=== PATIENT | male | born 1950 | race Caucasian/White ===

== ENCOUNTER → 2019-04-05 | Outpatient (CLI) | payer OTHER ==
[~2019-04-05] MED LIST: ASPI81CH43 GT; GABA300C10 OR; HYDR25TA4 OR; LISI-275 OR; METF-370 OR; PIOG30TA20 OR; PROZAC; ROSU40TA OR
[2019-04-05 08:42] LABS: Cholesterol 173 mg/dL (< 200); Triglycerides 172 mg/dL (< 150)
[2019-04-05 08:44] LABS: HDL Cholesterol 33 mg/dL (40-59); LDL Cholesterol 111 mg/dL (< 100)
== END | disposition home or self-care (01) ==
LOC: LAB 07:35
PROVIDERS: ATTEND Internal Medicine
DX: Z12.11 Encounter for screening for malignant neoplasm of colon (principal); E11.9 Type 2 diabetes mellitus without complications; I10 Essential (primary) hypertension; I25.10 Atherosclerotic heart disease of native coronary artery without angina pectoris; E78.5 Hyperlipidemia, unspecified; Z12.5 Encounter for screening for malignant neoplasm of prostate
CPT/HCPCS: 36415; 80061; 83036; 83880; 84153

== ENCOUNTER → 2019-05-09 | Outpatient (CLI) | payer MEDICAID, MEDICARE, OTHER | END | disposition home or self-care (01) | LOC: XYW 08:10 | PROVIDERS: ATTEND Internal Medicine | DX: I08.3 Combined rheumatic disorders of mitral, aortic and tricuspid valves (principal); I25.10 Atherosclerotic heart disease of native coronary artery without angina pectoris | CPT/HCPCS: 93306 ==

== ENCOUNTER → 2019-07-08 | Outpatient (CLI) | payer OTHER ==
[2019-07-08 08:41] LABS: Potassium 4.4 mmol/L (3.5-5.1)
[2019-07-08 08:46] LABS: Albumin 3.7 g/dL (3.4-5.0); BUN/Creatinine Ratio 16.9; Bilirubin, Total 0.5 mg/dL (0.2-1.0); Calcium 8.6 mg/dL (8.5-10.1); Total Protein 7.3 g/dL (6.4-8.2)
== END | disposition home or self-care (01) ==
LOC: LAB 07:06
PROVIDERS: ATTEND Internal Medicine
DX: E11.9 Type 2 diabetes mellitus without complications (principal); Z12.11 Encounter for screening for malignant neoplasm of colon; E78.5 Hyperlipidemia, unspecified; I10 Essential (primary) hypertension; Z79.4 Long term (current) use of insulin
CPT/HCPCS: 36415; 80053; 80061; 82550; 83036

== ENCOUNTER → 2019-09-09 | Outpatient (CLI) | payer MEDICAID, MEDICARE, OTHER ==
[~2019-09-09] MED LIST changes: +ASPI325T4 PO; +ATOR40TA52 PO; +FENO160T8 PO; +FLUO40CA75 PO; +GABA-339 PO; +INSUINJ2 SC; +METO25TA5 PO
== END | disposition home or self-care (01) ==
LOC: XY 08:45
PROVIDERS: ATTEND Podiatrist
DX: I65.23 Occlusion and stenosis of bilateral carotid arteries (principal); I73.89 Other specified peripheral vascular diseases
CPT/HCPCS: 93925

== ENCOUNTER → 2019-10-21 | Outpatient (CLI) | payer OTHER ==
[~2019-10-21] MED LIST changes: -ASPI325T4 PO; -ATOR40TA52 PO; -FENO160T8 PO; -FLUO40CA75 PO; -GABA-339 PO; -INSUINJ2 SC; -METO25TA5 PO
[2019-10-21 09:44] LABS: Basophils # (auto) 0.1 10 ^3/uL (0-0.2); Eosinophils # (auto) 0.7 10 ^3/uL (0-0.8); Eosinophils % (auto) 9.1 % (0.0-7.0); Hematocrit 39.1 % (41.0-53.0); Hemoglobin 13.2 g/dL (13.5-17.5); Lymphocytes # (auto) 1.8 10 ^3/uL (0.4-5.4); Mean Corpuscular Hemoglobin 30.9 pg (28.0-32.0); Mean Corpuscular Hgb Conc. 33.9 g/dL (32.0-36.0); Mean Corpuscular Volume 91.3 fL (80.0-100.0); Monocytes # (auto) 0.4 10 ^3/uL (0-1.3); Monocytes % (auto) 5.1 % (0.0-12.0); Neutrophils # (auto) 4.6 10 ^3/uL (1.6-8.6); Neutrophils % (auto) 60.8 % (37.0-80.0); Platelet Count (auto) 259 10^3/uL (140-450); Red Blood Cells 4.29 10^6/uL (4.5-5.90); Red Cell Distribution Width 12.8 % (11.8-14.3); White Blood Cell 7.5 10^3/uL (4.4-10.8)
[2019-10-21 10:30] LABS: Albumin 3.7 g/dL (3.4-5.0); Calcium 9.7 mg/dL (8.5-10.1); Potassium 4.4 mmol/L (3.5-5.1)
[2019-10-21 10:34] LABS: BUN/Creatinine Ratio 17.8; Bilirubin, Total 0.5 mg/dL (0.2-1.0); Total Protein 7.5 g/dL (6.4-8.2)
== END | disposition home or self-care (01) ==
LOC: LAB 08:45
PROVIDERS: ATTEND Internal Medicine
DX: E11.9 Type 2 diabetes mellitus without complications (principal)
CPT/HCPCS: 36415; 80053; 80061; 83036; 85025

== ENCOUNTER 2019-11-01 11:23 | Day surgery (SDC) | payer OTHER ==
[2019-10-28 11:45] LABS: Basophils # (auto) 0.1 10 ^3/uL (0-0.2); Eosinophils # (auto) 0.6 10 ^3/uL (0-0.8); Eosinophils % (auto) 7.5 % (0.0-7.0); Hematocrit 38.5 % (41.0-53.0); Hemoglobin 13.2 g/dL (13.5-17.5); Lymphocytes # (auto) 1.9 10 ^3/uL (0.4-5.4); Lymphocytes % (auto) 25.3 % (10.0-50.0); Mean Corpuscular Hemoglobin 30.9 pg (28.0-32.0); Mean Corpuscular Hgb Conc. 34.3 g/dL (32.0-36.0); Mean Corpuscular Volume 90.1 fL (80.0-100.0); Monocytes # (auto) 0.6 10 ^3/uL (0-1.3); Monocytes % (auto) 7.9 % (0.0-12.0); Neutrophils # (auto) 4.4 10 ^3/uL (1.6-8.6); Neutrophils % (auto) 58.3 % (37.0-80.0); Platelet Count (auto) 276 10^3/uL (140-450); Red Blood Cells 4.27 10^6/uL (4.5-5.90); Red Cell Distribution Width 12.9 % (11.8-14.3); White Blood Cell 7.6 10^3/uL (4.4-10.8)
[2019-10-28 12:06] LABS: INR 0.99 (0.9-1.15); Partial Thromboplastin Time 24.1 sec (23.0-31.2)
[~2019-11-01] VITALS: Ht 203.2 cm; Wt 124.7 kg
[~2019-11-01 11:23] MED LIST changes: +ASPI325T4 PO; -ASPI81CH43 GT; +ATOR40TA52 PO; +FENO160T8 PO; +FLUO40CA75 PO; +GABA-339 PO; -GABA300C10 OR; -HYDR25TA4 OR; +INSUINJ2 SC; -LISI-275 OR; +METO25TA5 PO; -PIOG30TA20 OR; -PROZAC; -ROSU40TA OR
[2019-11-01] MEDS ORDERED: SODIUM CHLORIDE LOCK 10 ML ONE (12:20)
[2019-11-01] MEDS ORDERED: diphenhdrAMINE HCL 50 MG/1 ML VL ONE (12:20)
[2019-11-01] MEDS: fentaNYL CITRATE 100 MCG/2 ML VL ONE ×3 (13:00→13:11)
[2019-11-01] MEDS: MIDAZOLAM HCL 5 MG/ML-1ML VIAL ONE ×3 (13:00→13:11)
[2019-11-01 14:04] VITALS: BP 134/67
== END 2019-11-01 14:05 | disposition home or self-care (01) ==
LOC: GI 11:23
PROVIDERS: ATTEND Internal Medicine Gastroenterology
DX: R19.4 Change in bowel habit (principal); D12.3 Benign neoplasm of transverse colon; D12.2 Benign neoplasm of ascending colon; D12.0 Benign neoplasm of cecum; G62.9 Polyneuropathy, unspecified; K63.89 Other specified diseases of intestine; Z86.19 Personal history of other infectious and parasitic diseases; Z79.82 Long term (current) use of aspirin; Z12.2 Encounter for screening for malignant neoplasm of respiratory organs; Z86.010 Personal history of colon polyps; Z79.899 Other long term (current) drug therapy; Z20.828 Contact with and (suspected) exposure to other viral communicable diseases
CPT/HCPCS: 36415; 45380; 45385; 82962; 85025; 85610; 85730; 88305; J2250; J3010; J7030; U0003

== ENCOUNTER → 2019-12-16 | Outpatient (CLI) | payer OTHER ==
[~2019-12-16] VITALS: Ht 203.2 cm; Wt 124.7 kg
[~2019-12-16] MED LIST changes: +ADENOSINE 105 MG in GIVE UN-DILUTED 0 ML IV ONE; +ADENOSINE 90 MG/30 ML INJ IV ONE
== END | disposition home or self-care (01) ==
LOC: Rad HDHVI 08:00
PROVIDERS: ATTEND Internal Medicine Cardiovascular Disease
DX: I11.0 Hypertensive heart disease with heart failure (principal); I50.43 Acute on chronic combined systolic (congestive) and diastolic (congestive) heart failure; E11.9 Type 2 diabetes mellitus without complications; R06.02 Shortness of breath; E78.5 Hyperlipidemia, unspecified; I25.10 Atherosclerotic heart disease of native coronary artery without angina pectoris; I25.5 Ischemic cardiomyopathy; I34.0 Nonrheumatic mitral (valve) insufficiency; Z82.49 Family history of ischemic heart disease and other diseases of the circulatory system; Z95.1 Presence of aortocoronary bypass graft
CPT/HCPCS: 78452; 93005; 96374; 96375; A9500; J0153

== ENCOUNTER → 2020-03-25 | Outpatient (CLI) | payer OTHER ==
[~2020-03-25] MED LIST changes: -ADENOSINE 105 MG in GIVE UN-DILUTED 0 ML IV ONE; -ADENOSINE 90 MG/30 ML INJ IV ONE; +FLUO40CA2 PO; -FLUO40CA75 PO; +INSREG3 SUBCUT
== END | disposition home or self-care (01) ==
LOC: XY 09:56
PROVIDERS: ATTEND Podiatrist
DX: I70.203 Unspecified atherosclerosis of native arteries of extremities, bilateral legs (principal)
CPT/HCPCS: 93925

== ENCOUNTER → 2020-07-21 | Outpatient (CLI) | payer OTHER ==
[~2020-07-21] MED LIST changes: -INSREG3 SUBCUT
== END | disposition home or self-care (01) ==
LOC: LAB 12:37
PROVIDERS: ATTEND Internal Medicine Pulmonary Disease
DX: Z01.812 Encounter for preprocedural laboratory examination (principal); Z20.822 Contact with and (suspected) exposure to COVID-19
CPT/HCPCS: 36415; 87426

== ENCOUNTER → 2020-07-22 | Outpatient (CLI) | payer OTHER ==
[~2020-07-22] MED LIST changes: +ALBUTEROL SULF 2.5 MG/0.5ML(0.5%) NEB SOLN ONE
== END | disposition home or self-care (01) ==
LOC: RT 08:46
PROVIDERS: ATTEND Internal Medicine
DX: I11.0 Hypertensive heart disease with heart failure (principal); I50.43 Acute on chronic combined systolic (congestive) and diastolic (congestive) heart failure
CPT/HCPCS: 94060; 94727; 94729

== ENCOUNTER → 2020-08-11 | Outpatient (CLI) | payer OTHER ==
[~2020-08-11] VITALS: Ht 203.2 cm; Wt 125.6 kg
[~2020-08-11] MED LIST changes: +ADENOSINE 106 MG in GIVE UN-DILUTED 0 ML IV STA; -ALBUTEROL SULF 2.5 MG/0.5ML(0.5%) NEB SOLN ONE
[2020-08-11 10:44] VITALS: BP 133/85
== END | disposition home or self-care (01) ==
LOC: XY 09:22
PROVIDERS: ATTEND Internal Medicine
DX: I25.10 Atherosclerotic heart disease of native coronary artery without angina pectoris (principal)
CPT/HCPCS: 78452; 93017; A9500; J0153

== ENCOUNTER → 2020-09-04 | Outpatient (CLI) | payer OTHER ==
[~2020-09-04] MED LIST changes: -ADENOSINE 106 MG in GIVE UN-DILUTED 0 ML IV STA
[2020-09-04 07:50] LABS: Basophils # (auto) 0.1 10 ^3/uL (0-0.2); Basophils % (auto) 1.2 % (0.0-2.0); Eosinophils # (auto) 0.7 10 ^3/uL (0-0.8); Eosinophils % (auto) 9.3 % (0.0-7.0); Hematocrit 39.2 % (41.0-53.0); Hemoglobin 13.7 g/dL (13.5-17.5); Lymphocytes % (auto) 25.4 % (10.0-50.0); Mean Corpuscular Hemoglobin 31.1 pg (28.0-32.0); Monocytes # (auto) 0.5 10 ^3/uL (0-1.3); Monocytes % (auto) 6.2 % (0.0-12.0); Neutrophils # (auto) 4.5 10 ^3/uL (1.6-8.6); Neutrophils % (auto) 57.9 % (37.0-80.0); Platelet Count (auto) 265 10^3/uL (140-450); Red Cell Distribution Width 13.2 % (11.8-14.3); White Blood Cell 7.7 10^3/uL (4.4-10.8)
[2020-09-04 08:34] LABS: Calcium 9.6 mg/dL (8.5-10.1); Potassium 4.8 mmol/L (3.5-5.1)
[2020-09-04 08:39] LABS: BUN/Creatinine Ratio 18.1; Bilirubin, Total 0.5 mg/dL (0.2-1.0); Total Protein 7.8 g/dL (6.4-8.2)
== END | disposition home or self-care (01) ==
LOC: LAB 07:27
PROVIDERS: ATTEND Internal Medicine
DX: Z12.11 Encounter for screening for malignant neoplasm of colon (principal); E11.22 Type 2 diabetes mellitus with diabetic chronic kidney disease; N18.30 Chronic kidney disease, stage 3 unspecified
CPT/HCPCS: 36415; 80053; 80061; 83036; 84153; 85025; 85049

== ENCOUNTER → 2020-09-25 | Outpatient (CLI) | payer OTHER ==
[~2020-09-25] MED LIST changes: +INSREG3 SUBCUT
[2020-09-25 10:33] LABS: Basophils # (auto) 0.1 10 ^3/uL (0-0.2); Basophils % (auto) 1.2 % (0.0-2.0); Eosinophils # (auto) 0.6 10 ^3/uL (0-0.8); Hematocrit 38.8 % (41.0-53.0); Hemoglobin 13.6 g/dL (13.5-17.5); Lymphocytes # (auto) 1.9 10 ^3/uL (0.4-5.4); Lymphocytes % (auto) 23.3 % (10.0-50.0); Mean Corpuscular Hemoglobin 31.1 pg (28.0-32.0); Mean Corpuscular Volume 88.7 fL (80.0-100.0); Monocytes # (auto) 0.5 10 ^3/uL (0-1.3); Neutrophils # (auto) 4.9 10 ^3/uL (1.6-8.6); Neutrophils % (auto) 61.5 % (37.0-80.0); Red Blood Cells 4.38 10^6/uL (4.5-5.90); Red Cell Distribution Width 13.5 % (11.8-14.3); White Blood Cell 7.9 10^3/uL (4.4-10.8)
[2020-09-25 11:01] LABS: INR 1.02 (0.9-1.15); Partial Thromboplastin Time 25.3 sec (23.0-31.2)
[2020-09-25 11:35] LABS: Calcium 8.8 mg/dL (8.5-10.1); Potassium 4.7 mmol/L (3.5-5.1)
[2020-09-25 11:41] LABS: Albumin 3.9 g/dL (3.4-5.0); BUN/Creatinine Ratio 17.1; Bilirubin, Total 0.4 mg/dL (0.2-1.0); Total Protein 8.1 g/dL (6.4-8.2)
== END | disposition home or self-care (01) ==
LOC: LAB 10:18
PROVIDERS: ATTEND Internal Medicine
DX: Z01.812 Encounter for preprocedural laboratory examination (principal)
CPT/HCPCS: 36415; 80053; 85025; 85610; 85730

== ENCOUNTER 2020-09-28 06:50 | Day surgery (SDC) | payer OTHER ==
[~2020-09-28] VITALS: Ht 203.2 cm; Wt 127.0 kg
[2020-09-28] MEDS ORDERED: IODIXANOL 320MG/ML 100ML BTL IV ONE ×3 (07:22→09:56)
[2020-09-28] MEDS ORDERED: LIDOCAINE 2%HCL (LOCAL ANESTH.) INJ 20ML MDV ONE (07:22)
[2020-09-28] MEDS ORDERED: ANGIOMAX 250 MG VIAL IV ONE ×2 (08:55→10:00)
[2020-09-28] MEDS ORDERED: fentaNYL CITRATE 100 MCG/2 ML VL ONE ×2 (08:56→10:10)
[2020-09-28] MEDS ORDERED: SODIUM CHL 0.9% 50 ML ONE ×2 (08:56→10:00)
[2020-09-28] MEDS ORDERED: VERAPAMIL 2.5MG/ML INJ 2ML VIAL IV ONE (08:56)
[2020-09-28] MEDS ORDERED: MIDAZOLAM HCL 2MG/2ML 2ml VIAL (1mg/ml) ONE ×2 (08:56→10:10)
[2020-09-28] MEDS ORDERED: HEPARIN SODIUM (PORCINE) 5000 UNITS/ML 1ML VIAL ONE (08:57)
[2020-09-28] MEDS ORDERED: LABETALOL HCL 5 MG/ML ML 20ML VIAL IV ONE (10:22)
[2020-09-28] MEDS ORDERED: ASPirin 81 mg TAB ONE (10:27)
[2020-09-28] MEDS ORDERED: TICAGRELOR 90 MG TAB ONE (10:27)
[2020-09-28] MEDS ORDERED: hydrALAZINE HCL 20 MG/ML VL ONE (10:40)
[2020-09-28] MEDS ORDERED: ONDANSETRON HCL 4 MG/2 ML VIAL IV PRN (11:45)
[2020-09-28] MEDS ORDERED: ACETAMINOPHEN 500 MG TAB PO PRN (11:45)
[2020-09-28] MEDS ORDERED: TICAGRELOR 90 MG TAB PO SCH (22:00)
== END 2020-09-28 13:40 | disposition home or self-care (01) ==
LOC: CATH 06:50
PROVIDERS: ATTEND Internal Medicine
DX: I25.10 Atherosclerotic heart disease of native coronary artery without angina pectoris (principal); I25.82 Chronic total occlusion of coronary artery; I10 Essential (primary) hypertension; E11.9 Type 2 diabetes mellitus without complications; E78.5 Hyperlipidemia, unspecified; Z95.1 Presence of aortocoronary bypass graft; Z87.891 Personal history of nicotine dependence; Z98.890 Other specified postprocedural states; Z79.899 Other long term (current) drug therapy; Z79.82 Long term (current) use of aspirin
CPT/HCPCS: 93461; C1726; C1769; C1874; C1887; C1894; C9604; J0583; J1644; J2250; J3010; J7030; Q9967; U0003; 99152; 99153

== ENCOUNTER → 2020-11-19 | Outpatient (CLI) | payer OTHER | END | disposition home or self-care (01) | LOC: LAB 14:00 | PROVIDERS: ATTEND Internal Medicine | DX: I10 Essential (primary) hypertension (principal) | CPT/HCPCS: 36415; 84443 ==

== ENCOUNTER 2020-12-17 13:18 | Emergency (ER) | payer OTHER ==
[~2020-12-17] VITALS: Ht 203.2 cm; Wt 124.7 kg
[2020-12-17 14:10] LABS: Basophils # (auto) 0.1 10 ^3/uL (0-0.2); Eosinophils # (auto) 0.4 10 ^3/uL (0-0.8); Eosinophils % (auto) 6.2 % (0.0-7.0); Hematocrit 39.5 % (41.0-53.0); Hemoglobin 13.8 g/dL (13.5-17.5); Lymphocytes # (auto) 1.6 10 ^3/uL (0.4-5.4); Lymphocytes % (auto) 23.3 % (10.0-50.0); Mean Corpuscular Hgb Conc. 34.8 g/dL (32.0-36.0); Monocytes # (auto) 0.5 10 ^3/uL (0-1.3); Monocytes % (auto) 7.2 % (0.0-12.0); Neutrophils # (auto) 4.4 10 ^3/uL (1.6-8.6); Neutrophils % (auto) 62.3 % (37.0-80.0); Nucleated Red Blood Cells % 0.1 %; Red Blood Cells 4.44 10^6/uL (4.5-5.90); Red Cell Distribution Width 13.1 % (11.8-14.3)
[2020-12-17 14:25] LABS: INR 0.97 (0.9-1.15); Partial Thromboplastin Time 24.5 sec (23.6-33.0)
[2020-12-17 14:36] LABS: Anion Gap 7 (5-15); Blood Urea Nitrogen 30 mg/dL (7-18); Calcium 9.5 mg/dL (8.5-10.1); Carbon Dioxide 24 mmol/L (21-32); Chloride 104 mmol/L (98-107); Glucose 185 mg/dL (74-106); Magnesium 2.4 mg/dL (1.6-2.6); Potassium 4.4 mmol/L (3.5-5.1); Sodium 135 mmol/L (136-145)
[2020-12-17 14:46] LABS: Alanine Aminotransferase 30 U/L (16-61); Alkaline Phosphatase 75 U/L (45-117); Aspartate Aminotransferase 16 U/L (15-37); BUN/Creatinine Ratio 17.6; Bilirubin, Total 0.3 mg/dL (0.2-1.0); GFR African American 52 mL/min; GFR Non-African American 43 mL/min; Total Protein 8.2 g/dL (6.4-8.2)
[2020-12-17 17:25] VITALS: BP 132/68
== END 2020-12-17 17:27 | disposition home or self-care (01) ==
LOC: ER 13:18
DX: R07.89 Other chest pain (principal); R91.1 Solitary pulmonary nodule; I10 Essential (primary) hypertension; E11.9 Type 2 diabetes mellitus without complications; I25.10 Atherosclerotic heart disease of native coronary artery without angina pectoris; Z95.1 Presence of aortocoronary bypass graft; Z79.4 Long term (current) use of insulin; Z79.82 Long term (current) use of aspirin; Z79.899 Other long term (current) drug therapy
CPT/HCPCS: 36415; 71045; 80053; 83735; 83880; 84484; 85025; 85379; 85610; 85730; 93005

== ENCOUNTER → 2021-01-18 | Outpatient (CLI) | payer OTHER ==
[2021-01-18 15:47] LABS: Basophils # (auto) 0.1 10 ^3/uL (0-0.2); Basophils % (auto) 0.9 % (0.0-2.0); Eosinophils # (auto) 0.5 10 ^3/uL (0-0.8); Eosinophils % (auto) 6.3 % (0.0-7.0); Hemoglobin 13.8 g/dL (13.5-17.5); Lymphocytes # (auto) 1.8 10 ^3/uL (0.4-5.4); Lymphocytes % (auto) 23.7 % (10.0-50.0); Mean Corpuscular Hgb Conc. 33.7 g/dL (32.0-36.0); Mean Corpuscular Volume 88.8 fL (80.0-100.0); Monocytes # (auto) 0.5 10 ^3/uL (0-1.3); Monocytes % (auto) 6.4 % (0.0-12.0); Neutrophils # (auto) 4.8 10 ^3/uL (1.6-8.6); Neutrophils % (auto) 62.7 % (37.0-80.0); Red Blood Cells 4.61 10^6/uL (4.5-5.90); White Blood Cell 7.6 10^3/uL (4.4-10.8)
[2021-01-18 16:37] LABS: INR 0.99 (0.9-1.15); Partial Thromboplastin Time 24.3 sec (23.6-33.0)
== END | disposition home or self-care (01) ==
LOC: LAB 14:55
PROVIDERS: ATTEND Internal Medicine
DX: R91.8 Other nonspecific abnormal finding of lung field (principal)
CPT/HCPCS: 36415; 85025; 85610; 85730

== ENCOUNTER → 2021-01-20 | Outpatient (CLI) | payer MEDICAID, MEDICARE, OTHER ==
[~2021-01-20] MED LIST changes: +LIDOCAINE 2%HCL (LOCAL ANESTH.) INJ 10ml MDV IJ ONE; +LIDOCAINE 2%HCL (LOCAL ANESTH.) INJ 20ML MDV ONE; +MIDAZOLAM HCL 2MG/2ML 2ml VIAL (1mg/ml) IV ONE; +MIDAZOLAM HCL 2MG/2ML 2ml VIAL (1mg/ml) ONE; +fentaNYL CITRATE 100 MCG/2 ML VL IV ONE; +fentaNYL CITRATE 100 MCG/2 ML VL ONE
[2021-01-20 09:55] VITALS: BP 148/73
== END | disposition home or self-care (01) ==
LOC: CT 08:41
PROVIDERS: ATTEND Nurse Practitioner Family
DX: R91.8 Other nonspecific abnormal finding of lung field (principal); J85.0 Gangrene and necrosis of lung; I25.810 Atherosclerosis of coronary artery bypass graft(s) without angina pectoris; Z95.1 Presence of aortocoronary bypass graft
CPT/HCPCS: 32408; 71045; 71250; 77012; 88305; 88342; J2001; J2250; J3010; 10022

== ENCOUNTER → 2021-02-11 | Outpatient (CLI) | payer OTHER ==
[~2021-02-11] MED LIST changes: -LIDOCAINE 2%HCL (LOCAL ANESTH.) INJ 10ml MDV IJ ONE; -LIDOCAINE 2%HCL (LOCAL ANESTH.) INJ 20ML MDV ONE; -MIDAZOLAM HCL 2MG/2ML 2ml VIAL (1mg/ml) IV ONE; -MIDAZOLAM HCL 2MG/2ML 2ml VIAL (1mg/ml) ONE; -fentaNYL CITRATE 100 MCG/2 ML VL IV ONE; -fentaNYL CITRATE 100 MCG/2 ML VL ONE
[2021-02-11 10:13] LABS: BUN/Creatinine Ratio 16.9; Calcium 9.1 mg/dL (8.5-10.1); Potassium 4.6 mmol/L (3.5-5.1)
== END | disposition home or self-care (01) ==
LOC: LAB 09:25
PROVIDERS: ATTEND Internal Medicine
DX: Z01.812 Encounter for preprocedural laboratory examination (principal); Z20.822 Contact with and (suspected) exposure to COVID-19
CPT/HCPCS: 36415; 80048; 82043; 82306; 84443; 87426

== ENCOUNTER → 2021-02-12 | Outpatient (CLI) | payer OTHER ==
[~2021-02-12] MED LIST changes: +ALBUTEROL SULF 2.5 MG/0.5ML(0.5%) NEB SOLN ONE
== END | disposition home or self-care (01) ==
LOC: RT 09:00
PROVIDERS: ATTEND Internal Medicine Pulmonary Disease
DX: J44.9 Chronic obstructive pulmonary disease, unspecified (principal)
CPT/HCPCS: 94060; 94727; 94729

== ENCOUNTER → 2021-02-22 | Outpatient (CLI) | payer OTHER ==
[~2021-02-22] MED LIST changes: -ALBUTEROL SULF 2.5 MG/0.5ML(0.5%) NEB SOLN ONE
[2021-02-22 09:51] LABS: Basophils # (auto) 0.1 10 ^3/uL (0-0.2); Basophils % (auto) 1.2 % (0.0-2.0); Eosinophils # (auto) 0.6 10 ^3/uL (0-0.8); Eosinophils % (auto) 8.8 % (0.0-7.0); Hematocrit 39.7 % (41.0-53.0); Hemoglobin 13.2 g/dL (13.5-17.5); Lymphocytes # (auto) 1.4 10 ^3/uL (0.4-5.4); Lymphocytes % (auto) 21.5 % (10.0-50.0); Mean Corpuscular Hemoglobin 29.3 pg (28.0-32.0); Mean Corpuscular Hgb Conc. 33.2 g/dL (32.0-36.0); Mean Corpuscular Volume 88.1 fL (80.0-100.0); Monocytes # (auto) 0.4 10 ^3/uL (0-1.3); Monocytes % (auto) 6.2 % (0.0-12.0); Neutrophils # (auto) 4.1 10 ^3/uL (1.6-8.6); Neutrophils % (auto) 62.3 % (37.0-80.0); Red Cell Distribution Width 12.7 % (11.8-14.3); White Blood Cell 6.5 10^3/uL (4.4-10.8)
[2021-02-22 09:59] LABS: INR 1.02 (0.9-1.15); Partial Thromboplastin Time 24.9 sec (23.6-33.0)
== END | disposition home or self-care (01) ==
LOC: LAB 09:14
PROVIDERS: ATTEND Internal Medicine
DX: Z01.812 Encounter for preprocedural laboratory examination (principal)
CPT/HCPCS: 36415; 85025; 85610; 85730

== ENCOUNTER → 2021-02-23 | Outpatient (CLI) | payer OTHER ==
[~2021-02-23] MED LIST changes: +CLOP75TA70 PO; +LEVO75TA6 PO; +LIDOCAINE 2%HCL (LOCAL ANESTH.) INJ 20ML MDV ONE; +MIDAZOLAM HCL 2MG/2ML 2ml VIAL (1mg/ml) IV ONE; +MIDAZOLAM HCL 2MG/2ML 2ml VIAL (1mg/ml) ONE; +fentaNYL CITRATE 100 MCG/2 ML VL IV ONE; +fentaNYL CITRATE 100 MCG/2 ML VL ONE
[2021-02-23 10:23] VITALS: BP 131/70
== END | disposition home or self-care (01) ==
LOC: CT 09:15
PROVIDERS: ATTEND Internal Medicine
DX: D38.1 Neoplasm of uncertain behavior of trachea, bronchus and lung (principal); Z95.5 Presence of coronary angioplasty implant and graft; Z87.891 Personal history of nicotine dependence
CPT/HCPCS: 32408; 71045; 71250; 77012; 88305; 88342; J2250; J3010; 10005

== ENCOUNTER → 2021-03-03 | Outpatient (CLI) | payer OTHER ==
[~2021-03-03] MED LIST changes: -CLOP75TA70 PO; -LEVO75TA6 PO; -LIDOCAINE 2%HCL (LOCAL ANESTH.) INJ 20ML MDV ONE; -MIDAZOLAM HCL 2MG/2ML 2ml VIAL (1mg/ml) IV ONE; -MIDAZOLAM HCL 2MG/2ML 2ml VIAL (1mg/ml) ONE; -fentaNYL CITRATE 100 MCG/2 ML VL IV ONE; -fentaNYL CITRATE 100 MCG/2 ML VL ONE
[2021-03-03 16:59] LABS: BUN/Creatinine Ratio 16.7; Calcium 9.6 mg/dL (8.5-10.1); Potassium 5.1 mmol/L (3.5-5.1)
== END | disposition home or self-care (01) ==
LOC: LAB 15:43
PROVIDERS: ATTEND Internal Medicine
DX: E11.9 Type 2 diabetes mellitus without complications (principal)
CPT/HCPCS: 36415; 80048; 84443

== ENCOUNTER → 2021-04-07 | Day surgery (SDC) | payer OTHER ==
[2021-04-06 09:35] LABS: Basophils # (auto) 0.1 10 ^3/uL (0-0.2); Basophils % (auto) 0.8 % (0.0-2.0); Eosinophils # (auto) 0.4 10 ^3/uL (0-0.8); Eosinophils % (auto) 5.3 % (0.0-7.0); Hematocrit 38.2 % (41.0-53.0); Lymphocytes # (auto) 1.3 10 ^3/uL (0.4-5.4); Mean Corpuscular Hemoglobin 29.9 pg (28.0-32.0); Monocytes # (auto) 0.5 10 ^3/uL (0-1.3); Monocytes % (auto) 7.2 % (0.0-12.0); Neutrophils # (auto) 4.5 10 ^3/uL (1.6-8.6); Neutrophils % (auto) 66.7 % (37.0-80.0); Nucleated Red Blood Cells % 0.1 %; Red Blood Cells 4.34 10^6/uL (4.5-5.90); Red Cell Distribution Width 13.4 % (11.8-14.3); White Blood Cell 6.7 10^3/uL (4.4-10.8)
[2021-04-06 09:54] LABS: Partial Thromboplastin Time 26.2 sec (23.6-33.0)
[2021-04-06 09:58] LABS: Urine Bacteria NONE SEEN /hpf (None Seen); Urine Blood Negative /uL (Negative); Urine Specific Gravity 1.015 (1.001-1.035); Urine WBC 1 /hpf (0 - 3)
[2021-04-06 11:13] LABS: Calcium 9.7 mg/dL (8.5-10.1); Potassium 5.3 mmol/L (3.5-5.1)
[2021-04-06 12:06] LABS: BUN/Creatinine Ratio 19.9; Bilirubin, Total 0.4 mg/dL (0.2-1.0)
[~2021-04-07] VITALS: Ht 203.2 cm; Wt 127.0 kg
[~2021-04-07] MED LIST changes: +CLOP75TA70 PO; +HEPARIN 1,000 UNITS/ml 1ML VIAL ONE; +HEPARIN SODIUM (PORCINE) 5000 UNITS/ML 1ML VIAL ONE; +LEVO75TA6 PO; +LIDOCAINE 1% HCL (LOCAL ANESTH.) INJ 20ML MDV ONE; +LIDOCAINE 2% (LOCAL ANESTH.) PF 5ml SDV ONE; +MIDAZOLAM HCL 2MG/2ML 2ml VIAL (1mg/ml) ONE; +ONDANSETRON HCL 4 MG/2 ML VIAL IV PRN; +ONDANSETRON HCL 4 MG/2 ML VIAL ONE; +PROPOFOL 10 MG/ML 20 ML IV ONE; +ceFAZolin 1GM VL ONE; +ceFAZolin 1GM/50ML 100 ML IV ONE; +ePHEDrine SULFATE 50 MG/ML AMP ONE; +fentaNYL CITRATE 5 ML ONE
[2021-04-07 09:00] VITALS: BP 134/75
== END | disposition home or self-care (01) ==
LOC: SUR 06:18
PROVIDERS: ATTEND Surgery
DX: C34.92 Malignant neoplasm of unspecified part of left bronchus or lung (principal); E11.40 Type 2 diabetes mellitus with diabetic neuropathy, unspecified; G89.29 Other chronic pain; Z95.5 Presence of coronary angioplasty implant and graft; Z90.49 Acquired absence of other specified parts of digestive tract; Z90.89 Acquired absence of other organs; Z86.73 Personal history of transient ischemic attack (TIA), and cerebral infarction without residual deficits; Z20.822 Contact with and (suspected) exposure to COVID-19
CPT/HCPCS: 36415; 36561; 71045; 80053; 81001; 82962; 85025; 85610; 85730; C1788; J0690; J1644; J2001; J2250; J2405; J2704; J3010; U0003

== ENCOUNTER → 2021-04-12 | Outpatient (CLI) | payer OTHER ==
[~2021-04-12] MED LIST changes: -HEPARIN 1,000 UNITS/ml 1ML VIAL ONE; -HEPARIN SODIUM (PORCINE) 5000 UNITS/ML 1ML VIAL ONE; -LIDOCAINE 1% HCL (LOCAL ANESTH.) INJ 20ML MDV ONE; -LIDOCAINE 2% (LOCAL ANESTH.) PF 5ml SDV ONE; -MIDAZOLAM HCL 2MG/2ML 2ml VIAL (1mg/ml) ONE; -ONDANSETRON HCL 4 MG/2 ML VIAL IV PRN; -ONDANSETRON HCL 4 MG/2 ML VIAL ONE; -PROPOFOL 10 MG/ML 20 ML IV ONE; -ceFAZolin 1GM VL ONE; -ceFAZolin 1GM/50ML 100 ML IV ONE; -ePHEDrine SULFATE 50 MG/ML AMP ONE; -fentaNYL CITRATE 5 ML ONE
[2021-04-12 11:22] LABS: Basophils # (auto) 0.1 10 ^3/uL (0-0.2); Basophils % (auto) 0.9 % (0.0-2.0); Eosinophils # (auto) 0.5 10 ^3/uL (0-0.8); Eosinophils % (auto) 6.8 % (0.0-7.0); Hematocrit 37.5 % (41.0-53.0); Hemoglobin 12.6 g/dL (13.5-17.5); Lymphocytes # (auto) 1.3 10 ^3/uL (0.4-5.4); Lymphocytes % (auto) 19.7 % (10.0-50.0); Mean Corpuscular Hemoglobin 29.6 pg (28.0-32.0); Mean Corpuscular Hgb Conc. 33.6 g/dL (32.0-36.0); Mean Corpuscular Volume 88.1 fL (80.0-100.0); Monocytes # (auto) 0.5 10 ^3/uL (0-1.3); Monocytes % (auto) 6.8 % (0.0-12.0); Neutrophils # (auto) 4.4 10 ^3/uL (1.6-8.6); Neutrophils % (auto) 65.8 % (37.0-80.0); Red Blood Cells 4.26 10^6/uL (4.5-5.90); Red Cell Distribution Width 13.3 % (11.8-14.3); White Blood Cell 6.8 10^3/uL (4.4-10.8)
[2021-04-12 11:34] LABS: INR 1.03 (0.9-1.15)
[2021-04-12 11:46] LABS: Albumin 3.8 g/dL (3.4-5.0); BUN/Creatinine Ratio 20.7; Bilirubin, Total 0.4 mg/dL (0.2-1.0); Calcium 9.6 mg/dL (8.5-10.1); Total Protein 7.7 g/dL (6.4-8.2)
== END | disposition home or self-care (01) ==
LOC: LAB 10:41
PROVIDERS: ATTEND Internal Medicine
DX: C34.90 Malignant neoplasm of unspecified part of unspecified bronchus or lung (principal)
CPT/HCPCS: 36415; 80053; 83615; 85025; 85610

== ENCOUNTER → 2021-04-19 | Outpatient (CLI) | payer OTHER ==
[2021-04-19 13:51] LABS: Basophils # (auto) 0.1 10 ^3/uL (0-0.2); Eosinophils # (auto) 0.2 10 ^3/uL (0-0.8); Eosinophils % (auto) 3.9 % (0.0-7.0); Hematocrit 38.2 % (41.0-53.0); Hemoglobin 12.9 g/dL (13.5-17.5); Lymphocytes # (auto) 1.1 10 ^3/uL (0.4-5.4); Lymphocytes % (auto) 17.6 % (10.0-50.0); Mean Corpuscular Hgb Conc. 33.8 g/dL (32.0-36.0); Monocytes # (auto) 0.2 10 ^3/uL (0-1.3); Monocytes % (auto) 3.7 % (0.0-12.0); Neutrophils # (auto) 4.7 10 ^3/uL (1.6-8.6); Neutrophils % (auto) 73.8 % (37.0-80.0); Red Blood Cells 4.29 10^6/uL (4.5-5.90); Red Cell Distribution Width 13.6 % (11.8-14.3); White Blood Cell 6.4 10^3/uL (4.4-10.8)
[2021-04-19 14:23] LABS: Potassium 5.4 mmol/L (3.5-5.1)
[2021-04-19 14:38] LABS: Albumin 3.9 g/dL (3.4-5.0); BUN/Creatinine Ratio 21.6; Bilirubin, Total 0.4 mg/dL (0.2-1.0); Calcium 9.5 mg/dL (8.5-10.1)
== END | disposition home or self-care (01) ==
LOC: LAB 09:47
PROVIDERS: ATTEND Internal Medicine
DX: C34.90 Malignant neoplasm of unspecified part of unspecified bronchus or lung (principal); Z88.8 Allergy status to other drugs, medicaments and biological substances
CPT/HCPCS: 36415; 80053; 83615; 85025

== ENCOUNTER → 2021-04-26 | Outpatient (CLI) | payer OTHER ==
[2021-04-26 12:55] LABS: Basophils # (auto) 0 10 ^3/uL (0-0.2); Basophils % (auto) 0.7 % (0.0-2.0); Eosinophils # (auto) 0.1 10 ^3/uL (0-0.8); Eosinophils % (auto) 2.1 % (0.0-7.0); Hematocrit 36.7 % (41.0-53.0); Hemoglobin 12.3 g/dL (13.5-17.5); Lymphocytes # (auto) 0.6 10 ^3/uL (0.4-5.4); Lymphocytes % (auto) 11.2 % (10.0-50.0); Mean Corpuscular Hemoglobin 29.5 pg (28.0-32.0); Mean Corpuscular Hgb Conc. 33.4 g/dL (32.0-36.0); Mean Corpuscular Volume 88.3 fL (80.0-100.0); Monocytes # (auto) 0.2 10 ^3/uL (0-1.3); Monocytes % (auto) 4.4 % (0.0-12.0); Neutrophils # (auto) 4.3 10 ^3/uL (1.6-8.6); Neutrophils % (auto) 81.6 % (37.0-80.0); Nucleated Red Blood Cells % 0.2 %; Red Blood Cells 4.16 10^6/uL (4.5-5.90); Red Cell Distribution Width 13.3 % (11.8-14.3); White Blood Cell 5.2 10^3/uL (4.4-10.8)
[2021-04-26 13:40] LABS: Albumin 3.5 g/dL (3.4-5.0); BUN/Creatinine Ratio 23.7; Calcium 9.4 mg/dL (8.5-10.1)
[2021-04-26 13:42] LABS: Bilirubin, Total 0.4 mg/dL (0.2-1.0); Total Protein 7.7 g/dL (6.4-8.2)
== END | disposition home or self-care (01) ==
LOC: LAB 09:52
PROVIDERS: ATTEND Internal Medicine
DX: C34.90 Malignant neoplasm of unspecified part of unspecified bronchus or lung (principal)
CPT/HCPCS: 36415; 80053; 83615; 85025

== ENCOUNTER → 2021-05-03 | Outpatient (CLI) | payer OTHER ==
[2021-05-03 11:24] LABS: Albumin 3.7 g/dL (3.4-5.0); BUN/Creatinine Ratio 19.8; Bilirubin, Total 0.4 mg/dL (0.2-1.0); Calcium 9.7 mg/dL (8.5-10.1); Total Protein 7.9 g/dL (6.4-8.2)
[2021-05-03 11:26] LABS: Thyroid Stimulating Hormone 1.66 uIU/mL (0.358-3.74)
[2021-05-03 11:35] LABS: Basophils # (auto) 0 10 ^3/uL (0-0.2); Basophils % (auto) 0.8 % (0.0-2.0); Eosinophils # (auto) 0.1 10 ^3/uL (0-0.8); Eosinophils % (auto) 1.1 % (0.0-7.0); Hematocrit 36.5 % (41.0-53.0); Hemoglobin 12.5 g/dL (13.5-17.5); Lymphocytes # (auto) 0.7 10 ^3/uL (0.4-5.4); Lymphocytes % (auto) 14.4 % (10.0-50.0); Mean Corpuscular Hemoglobin 29.9 pg (28.0-32.0); Mean Corpuscular Hgb Conc. 34.1 g/dL (32.0-36.0); Mean Corpuscular Volume 87.5 fL (80.0-100.0); Monocytes # (auto) 0.3 10 ^3/uL (0-1.3); Monocytes % (auto) 5.8 % (0.0-12.0); Neutrophils % (auto) 77.9 % (37.0-80.0); Nucleated Red Blood Cells % 0.1 %; Red Blood Cells 4.17 10^6/uL (4.5-5.90); Red Cell Distribution Width 13.4 % (11.8-14.3); White Blood Cell 5.1 10^3/uL (4.4-10.8)
== END | disposition home or self-care (01) ==
LOC: LAB 10:02
PROVIDERS: ATTEND Internal Medicine
DX: E11.9 Type 2 diabetes mellitus without complications (principal); J44.9 Chronic obstructive pulmonary disease, unspecified; R91.8 Other nonspecific abnormal finding of lung field
CPT/HCPCS: 36415; 80053; 83615; 84443; 85025

== ENCOUNTER → 2021-05-10 | Outpatient (CLI) | payer OTHER ==
[2021-05-10 10:38] LABS: Basophils # (auto) 0 10 ^3/uL (0-0.2); Basophils % (auto) 0.6 % (0.0-2.0); Eosinophils # (auto) 0 10 ^3/uL (0-0.8); Eosinophils % (auto) 0.8 % (0.0-7.0); Hematocrit 35.8 % (41.0-53.0); Hemoglobin 12.1 g/dL (13.5-17.5); Lymphocytes # (auto) 0.4 10 ^3/uL (0.4-5.4); Lymphocytes % (auto) 8.2 % (10.0-50.0); Mean Corpuscular Hemoglobin 30.3 pg (28.0-32.0); Mean Corpuscular Volume 89.1 fL (80.0-100.0); Monocytes # (auto) 0.4 10 ^3/uL (0-1.3); Neutrophils # (auto) 4.5 10 ^3/uL (1.6-8.6); Neutrophils % (auto) 83.4 % (37.0-80.0); Nucleated Red Blood Cells % 0.1 %; Red Blood Cells 4.02 10^6/uL (4.5-5.90); Red Cell Distribution Width 13.9 % (11.8-14.3); White Blood Cell 5.4 10^3/uL (4.4-10.8)
[2021-05-10 12:58] LABS: Potassium 4.8 mmol/L (3.5-5.1)
[2021-05-10 13:41] LABS: Albumin 3.8 g/dL (3.4-5.0); BUN/Creatinine Ratio 15.5; Bilirubin, Total 0.4 mg/dL (0.2-1.0); Calcium 9.3 mg/dL (8.5-10.1)
== END | disposition home or self-care (01) ==
LOC: LAB 09:34
PROVIDERS: ATTEND Internal Medicine
DX: C34.90 Malignant neoplasm of unspecified part of unspecified bronchus or lung (principal)
CPT/HCPCS: 36415; 80053; 83615; 85025

== ENCOUNTER → 2021-05-13 | Outpatient (CLI) | payer OTHER ==
[~2021-05-13] MED LIST changes: +IOHEXOL 300 MG/ML 100ML BOTTLE IJ ONE
== END | disposition home or self-care (01) ==
LOC: XYW 10:21
PROVIDERS: ATTEND Internal Medicine
DX: T82.49XA Other complication of vascular dialysis catheter, initial encounter (principal); C34.92 Malignant neoplasm of unspecified part of left bronchus or lung; Z87.891 Personal history of nicotine dependence; Z95.5 Presence of coronary angioplasty implant and graft; Y82.8 Other medical devices associated with adverse incidents; Y92.89 Other specified places as the place of occurrence of the external cause; Y84.1 Kidney dialysis as the cause of abnormal reaction of the patient, or of later complication, without mention of misadventure at the time of the procedure
CPT/HCPCS: 36561; 71045; 76000; Q9967

== ENCOUNTER → 2021-05-17 | Outpatient (CLI) | payer OTHER ==
[~2021-05-17] MED LIST changes: -IOHEXOL 300 MG/ML 100ML BOTTLE IJ ONE
[2021-05-17 10:36] LABS: Basophils # (auto) 0.1 10 ^3/uL (0-0.2); Basophils % (auto) 1.9 % (0.0-2.0); Eosinophils # (auto) 0 10 ^3/uL (0-0.8); Eosinophils % (auto) 0.8 % (0.0-7.0); Hematocrit 33.3 % (41.0-53.0); Hemoglobin 11.6 g/dL (13.5-17.5); Lymphocytes # (auto) 0.4 10 ^3/uL (0.4-5.4); Lymphocytes % (auto) 8.1 % (10.0-50.0); Mean Corpuscular Hemoglobin 30.6 pg (28.0-32.0); Mean Corpuscular Hgb Conc. 34.7 g/dL (32.0-36.0); Monocytes # (auto) 0.2 10 ^3/uL (0-1.3); Monocytes % (auto) 4.1 % (0.0-12.0); Neutrophils # (auto) 3.8 10 ^3/uL (1.6-8.6); Neutrophils % (auto) 85.1 % (37.0-80.0); Red Blood Cells 3.78 10^6/uL (4.5-5.90); Red Cell Distribution Width 14.1 % (11.8-14.3); White Blood Cell 4.5 10^3/uL (4.4-10.8)
[2021-05-17 12:04] LABS: Albumin 3.6 g/dL (3.4-5.0); BUN/Creatinine Ratio 18.7; Calcium 9.3 mg/dL (8.5-10.1); Potassium 4.9 mmol/L (3.5-5.1)
[2021-05-17 12:07] LABS: Bilirubin, Total 0.4 mg/dL (0.2-1.0); Total Protein 7.7 g/dL (6.4-8.2)
== END | disposition home or self-care (01) ==
LOC: LAB 09:40
PROVIDERS: ATTEND Internal Medicine
DX: C34.90 Malignant neoplasm of unspecified part of unspecified bronchus or lung (principal)
CPT/HCPCS: 36415; 80053; 83615; 85025

== ENCOUNTER → 2021-05-24 | Outpatient (CLI) | payer OTHER ==
[2021-05-24 09:23] LABS: Basophils # (auto) 0 10 ^3/uL (0-0.2); Basophils % (auto) 0.6 % (0.0-2.0); Eosinophils # (auto) 0 10 ^3/uL (0-0.8); Eosinophils % (auto) 1.1 % (0.0-7.0); Hematocrit 33.8 % (41.0-53.0); Hemoglobin 11.9 g/dL (13.5-17.5); Lymphocytes # (auto) 0.3 10 ^3/uL (0.4-5.4); Mean Corpuscular Hemoglobin 31.3 pg (28.0-32.0); Mean Corpuscular Hgb Conc. 35.1 g/dL (32.0-36.0); Mean Corpuscular Volume 89.3 fL (80.0-100.0); Monocytes # (auto) 0.2 10 ^3/uL (0-1.3); Monocytes % (auto) 5.6 % (0.0-12.0); Neutrophils # (auto) 2.5 10 ^3/uL (1.6-8.6); Neutrophils % (auto) 83.7 % (37.0-80.0); Nucleated Red Blood Cells % 0.4 %; Red Blood Cells 3.79 10^6/uL (4.5-5.90); Red Cell Distribution Width 14.4 % (11.8-14.3)
[2021-05-24 10:12] LABS: Potassium 4.6 mmol/L (3.5-5.1)
[2021-05-24 10:19] LABS: Albumin 3.6 g/dL (3.4-5.0); BUN/Creatinine Ratio 15.6; Bilirubin, Total 0.4 mg/dL (0.2-1.0); Calcium 9.3 mg/dL (8.5-10.1); Total Protein 8.1 g/dL (6.4-8.2)
== END | disposition home or self-care (01) ==
LOC: LAB 08:56
PROVIDERS: ATTEND Internal Medicine
DX: C34.90 Malignant neoplasm of unspecified part of unspecified bronchus or lung (principal)
CPT/HCPCS: 36415; 80053; 83615; 85025

== ENCOUNTER → 2021-07-13 | Outpatient (CLI) | payer OTHER, MEDICAID | END | disposition home or self-care (01) | LOC: LAB 11:50 | PROVIDERS: ATTEND Internal Medicine | DX: C34.90 Malignant neoplasm of unspecified part of unspecified bronchus or lung (principal) | CPT/HCPCS: 36415; 82565; 84520 ==

== ENCOUNTER 2021-08-11 19:22 | Inpatient (IN) | payer MEDICAID, MEDICARE, OTHER ==
[~2021-08-11] VITALS: Ht 177.8 cm; Wt 11.1 kg
[2021-08-11 20:32] LABS: Basophils # (auto) 0 10 ^3/uL (0-0.2); Basophils % (auto) 0.4 % (0.0-2.0); Eosinophils # (auto) 0.1 10 ^3/uL (0-0.8); Eosinophils % (auto) 1.4 % (0.0-7.0); Lymphocytes # (auto) 0.4 10 ^3/uL (0.4-5.4); Lymphocytes % (auto) 6.3 % (10.0-50.0); Monocytes # (auto) 0.9 10 ^3/uL (0-1.3); Neutrophils # (auto) 5.4 10 ^3/uL (1.6-8.6)
[2021-08-11 20:33] LABS: Hematocrit 30.9 % (41.0-53.0); Hemoglobin 11.1 g/dL (13.5-17.5); Mean Corpuscular Hemoglobin 33.6 pg (28.0-32.0); Mean Corpuscular Hgb Conc. 35.9 g/dL (32.0-36.0); Mean Corpuscular Volume 93.8 fL (80.0-100.0); Neutrophils % (auto) 78.9 % (37.0-80.0); Red Cell Distribution Width 15.5 % (11.8-14.3); White Blood Cell 6.8 10^3/uL (4.4-10.8)
[2021-08-11] MEDS ORDERED: SODIUM CHLORIDE 0.9% 1,000 ML IV ONE ×2 (20:45→22:00)
[2021-08-11 20:54] LABS: Albumin 3.3 g/dL (3.4-5.0); Calcium 9.3 mg/dL (8.5-10.1); Potassium 4.4 mmol/L (3.5-5.1)
[2021-08-11 20:57] LABS: BUN/Creatinine Ratio 16.8; Bilirubin, Total 0.4 mg/dL (0.2-1.0); Total Protein 7.9 g/dL (6.4-8.2)
[2021-08-11 22:19] LABS: Urine Bacteria NONE SEEN /hpf (None Seen); Urine Blood Negative /uL (Negative); Urine Hyaline Cast FEW /lpf (0 - 2); Urine Specific Gravity 1.026 (1.001-1.035); Urine WBC 1 /hpf (0 - 3)
[2021-08-12] MEDS ORDERED: IOHEXOL 350 MG/ML 100ML IJ ONE (00:42)
[2021-08-12 00:59] LABS: Magnesium 1.9 mg/dL (1.6-2.6)
[2021-08-12 01:08] LABS: CRP High Sensitivity 10.8 mg/dL (< 0.3)
[2021-08-12] MEDS ORDERED: SODIUM CHLORIDE 0.9% 1,000 ML IV SCH ×2 (02:45→10:00)
[2021-08-12] MEDS ORDERED: DEXTROSE (50%) 50ML SYRG IV PRN (02:45)
[2021-08-12] MEDS ORDERED: TEMAZEPAM 15 MG CAP PO PRN (02:45)
[2021-08-12] MEDS ORDERED: ACETAMINOPHEN 325 MG TAB PO PRN (02:45)
[2021-08-12] MEDS ORDERED: LOPERAMIDE HCL 2 MG CAP/TAB PO PRN (02:45)
[2021-08-12] MEDS ORDERED: ONDANSETRON HCL 4 MG/2 ML VIAL IV PRN (02:45)
[2021-08-12] MEDS ORDERED: PIPERACILLIN-TAZOB 3.375GM 100 ML IV ONE (03:00)
[2021-08-12] MEDS: CLINDAMYCIN 600MG IV 50 ML IV SCH ×4 (03:47→21:30)
[2021-08-12] MEDS: InsuLIN REG 1unit/0.01ml Soln (100units/ml) SC SCH ×4 (06:28→21:20)
[2021-08-12] MEDS: ACCU-CHEK COMFORT CURVE STRIP VI SCH ×4 (06:28→21:19)
[2021-08-12] MEDS: LEVOTHYROXINE SODIUM 25 MCG TAB PO SCH (06:32)
[2021-08-12] MEDS: GABAPENTIN 300 MG CAP PO SCH ×2 (09:44→21:29)
[2021-08-12] MEDS: CLOPIDOGREL BISULFATE 75 MG TAB PO SCH (09:45)
[2021-08-12] MEDS: METOPROLOL TARTRATE 25 MG TAB PO SCH ×2 (09:46→21:30)
[2021-08-12 13:00] VITALS: BP 119/58
[2021-08-12 13:41] VITALS: BP 134/69
[2021-08-12] MEDS ORDERED: FLUT110A PO (14:05)
[2021-08-12] MEDS ORDERED: CETI-120 PO (14:05)
[2021-08-12] MEDS ORDERED: LEVO-28 PO (14:05)
[2021-08-12] MEDS: SODIUM CHLORIDE 0.9% 1,000 ML IV SCH ×2 (16:45→22:49)
[2021-08-12 17:04] VITALS: BP 150/71
[2021-08-12] MEDS: ATORVASTATIN 20 MG TAB PO SCH (21:30)
[2021-08-12 22:00] VITALS: BP 125/65
[2021-08-13] MEDS: SODIUM CHLORIDE 0.9% 1,000 ML IV SCH ×2 (00:01→13:15)
[2021-08-13 05:00] VITALS: BP 144/78
[2021-08-13] MEDS: CLINDAMYCIN 600MG IV 50 ML IV SCH ×3 (05:58→21:32)
[2021-08-13] MEDS: InsuLIN REG 1unit/0.01ml Soln (100units/ml) SC SCH ×4 (06:01→21:51)
[2021-08-13] MEDS: ACCU-CHEK COMFORT CURVE STRIP VI SCH ×4 (06:01→21:40)
[2021-08-13] MEDS: LEVOTHYROXINE SODIUM 25 MCG TAB PO SCH (06:02)
[2021-08-13 07:09] LABS: Basophils # (auto) 0 10 ^3/uL (0-0.2); Basophils % (auto) 0.6 % (0.0-2.0); Eosinophils # (auto) 0.1 10 ^3/uL (0-0.8); Eosinophils % (auto) 3.3 % (0.0-7.0); Hematocrit 27.8 % (41.0-53.0); Hemoglobin 9.9 g/dL (13.5-17.5); Lymphocytes # (auto) 0.5 10 ^3/uL (0.4-5.4); Lymphocytes % (auto) 10.6 % (10.0-50.0); Mean Corpuscular Hemoglobin 33.8 pg (28.0-32.0); Mean Corpuscular Hgb Conc. 35.8 g/dL (32.0-36.0); Mean Corpuscular Volume 94.5 fL (80.0-100.0); Monocytes # (auto) 0.7 10 ^3/uL (0-1.3); Neutrophils # (auto) 3.1 10 ^3/uL (1.6-8.6); Neutrophils % (auto) 70.5 % (37.0-80.0); Nucleated Red Blood Cells % 0.1 %; Red Blood Cells 2.94 10^6/uL (4.5-5.90); Red Cell Distribution Width 15.2 % (11.8-14.3); White Blood Cell 4.5 10^3/uL (4.4-10.8)
[2021-08-13 07:24] LABS: Potassium 4.5 mmol/L (3.5-5.1)
[2021-08-13 07:31] LABS: Albumin 2.7 g/dL (3.4-5.0); BUN/Creatinine Ratio 16.5; Bilirubin, Total 0.3 mg/dL (0.2-1.0); Calcium 8.8 mg/dL (8.5-10.1); Total Protein 6.9 g/dL (6.4-8.2)
[2021-08-13 09:00] VITALS: BP 139/72
[2021-08-13] MEDS: METOPROLOL TARTRATE 25 MG TAB PO SCH ×2 (11:32→21:40)
[2021-08-13] MEDS: CLOPIDOGREL BISULFATE 75 MG TAB PO SCH (11:33)
[2021-08-13] MEDS: GABAPENTIN 300 MG CAP PO SCH ×2 (11:33→21:32)
[2021-08-13] MEDS ORDERED: GADOTERATE MEG 10 MMOL/20ml INJ (0.5MMOL/ml) IV ONE (11:55)
[2021-08-13 12:53] VITALS: BP 145/72
[2021-08-13] MEDS ORDERED: CHOLECALCIFEROL (VITD3) 2,000 UNIT CAP/TAB PO ONE (13:15)
[2021-08-13 17:00] VITALS: BP 142/72
[2021-08-13] MEDS: ATORVASTATIN 20 MG TAB PO SCH (21:32)
[2021-08-13 22:00] VITALS: BP 137/68
[2021-08-14 05:00] VITALS: BP 141/67
[2021-08-14] MEDS: CLINDAMYCIN 600MG IV 50 ML IV SCH ×3 (05:32→22:01)
[2021-08-14] MEDS: SODIUM CHLORIDE 0.9% 1,000 ML IV SCH ×2 (05:35→13:45)
[2021-08-14] MEDS: ACCU-CHEK COMFORT CURVE STRIP VI SCH ×4 (05:40→22:07)
[2021-08-14] MEDS: InsuLIN REG 1unit/0.01ml Soln (100units/ml) SC SCH ×4 (05:40→22:08)
[2021-08-14] MEDS: LEVOTHYROXINE SODIUM 25 MCG TAB PO SCH (05:40)
[2021-08-14 06:03] LABS: Hematocrit 29.7 % (41.0-53.0); Hemoglobin 10.3 g/dL (13.5-17.5)
[2021-08-14 09:00] VITALS: BP 127/74
[2021-08-14] MEDS: GABAPENTIN 300 MG CAP PO SCH ×2 (09:40→22:02)
[2021-08-14] MEDS: CHOLECALCIFEROL (VITD3) 2,000 UNIT CAP/TAB PO SCH (09:41)
[2021-08-14] MEDS: CLOPIDOGREL BISULFATE 75 MG TAB PO SCH (09:41)
[2021-08-14] MEDS: METOPROLOL TARTRATE 25 MG TAB PO SCH ×2 (09:42→22:06)
[2021-08-14] MEDS ORDERED: DOXYCYCLINE 100 MG TAB/CAP PO ONE (11:00)
[2021-08-14 13:00] VITALS: BP 135/72
[2021-08-14 17:00] VITALS: BP 149/74
[2021-08-14 22:00] VITALS: BP 150/61
[2021-08-14] MEDS ORDERED: DOXYCYCLINE 100 MG TAB/CAP PO SCH (22:00)
[2021-08-14] MEDS: ATORVASTATIN 20 MG TAB PO SCH (22:02)
[2021-08-15 05:00] VITALS: BP 151/82
[2021-08-15] MEDS: CLINDAMYCIN 600MG IV 50 ML IV SCH ×2 (05:58→13:20)
[2021-08-15] MEDS: LEVOTHYROXINE SODIUM 25 MCG TAB PO SCH (05:58)
[2021-08-15] MEDS: ACCU-CHEK COMFORT CURVE STRIP VI SCH ×3 (06:03→17:00)
[2021-08-15] MEDS: InsuLIN REG 1unit/0.01ml Soln (100units/ml) SC SCH ×3 (06:03→17:10)
[2021-08-15 09:00] VITALS: BP 128/80
[2021-08-15] MEDS: SODIUM CHLORIDE 0.9% 1,000 ML IV SCH (09:45)
[2021-08-15] MEDS: METOPROLOL TARTRATE 25 MG TAB PO SCH (11:04)
[2021-08-15] MEDS: GABAPENTIN 300 MG CAP PO SCH (11:04)
[2021-08-15] MEDS: CLOPIDOGREL BISULFATE 75 MG TAB PO SCH (11:04)
[2021-08-15] MEDS: CHOLECALCIFEROL (VITD3) 2,000 UNIT CAP/TAB PO SCH (11:04)
[2021-08-15] MEDS ORDERED: CLIN300C8 PO (11:40)
[2021-08-15] MEDS ORDERED: SACC250C PO (11:40)
[2021-08-15] MEDS ORDERED: DOXY-286 PO (11:40)
[2021-08-15] MEDS ORDERED: CHOL20007 PO (11:40)
[2021-08-15 13:00] VITALS: BP 141/74
[2021-08-15 13:15] VITALS: BP 128/80
[2021-08-15 17:00] VITALS: BP 142/77
== END 2021-08-15 18:30 | disposition home health service (06) | DRG 871 ==
LOC: ER 19:22 → OVERFLOW 08-12 02:37 → CENTRAL 08-12 08:24
PROVIDERS: ADMIT Nurse Practitioner; ATTEND Internal Medicine
DX: A41.9 Sepsis, unspecified organism (principal); N17.0 Acute kidney failure with tubular necrosis; J18.9 Pneumonia, unspecified organism; C34.90 Malignant neoplasm of unspecified part of unspecified bronchus or lung; K61.0 Anal abscess; E03.9 Hypothyroidism, unspecified; E11.9 Type 2 diabetes mellitus without complications; E78.5 Hyperlipidemia, unspecified; E86.0 Dehydration; I25.10 Atherosclerotic heart disease of native coronary artery without angina pectoris; Z20.822 Contact with and (suspected) exposure to COVID-19; I10 Essential (primary) hypertension; D63.8 Anemia in other chronic diseases classified elsewhere; E55.9 Vitamin D deficiency, unspecified; Z85.118 Personal history of other malignant neoplasm of bronchus and lung; Z95.1 Presence of aortocoronary bypass graft; Z90.49 Acquired absence of other specified parts of digestive tract
CPT/HCPCS: 36415; 70553; 71045; 71250; 74177; 80053; 80061; 81001; 82306; 82962; 83036; 83605; 83735; 83880; 84443; 84484; 85014; 85018; 85025; 85652; 86141; 87040; 87045; 87077; 87177; 87186; 87205; 87427; 87493; 96360; 96361; 97110; 97116; 97163; 97530; G0378; J1815; J3490

== ENCOUNTER → 2021-09-21 | Outpatient (CLI) | payer OTHER ==
[~2021-09-21] MED LIST changes: +CETI-120 PO; +CLIN300C8 PO; +DOXY-286 PO; +FLUT110A PO; +SACC250C PO
[2021-09-21 08:31] LABS: Basophils # (auto) 0 10 ^3/uL (0-0.2); Basophils % (auto) 0.5 % (0.0-2.0); Eosinophils # (auto) 0.3 10 ^3/uL (0-0.8); Eosinophils % (auto) 6.2 % (0.0-7.0); Hematocrit 34.8 % (41.0-53.0); Hemoglobin 11.3 g/dL (13.5-17.5); Lymphocytes % (auto) 20.2 % (10.0-50.0); Mean Corpuscular Hemoglobin 30.3 pg (28.0-32.0); Mean Corpuscular Hgb Conc. 32.6 g/dL (32.0-36.0); Mean Corpuscular Volume 92.9 fL (80.0-100.0); Monocytes # (auto) 0.5 10 ^3/uL (0-1.3); Monocytes % (auto) 9.8 % (0.0-12.0); Neutrophils # (auto) 3.2 10 ^3/uL (1.6-8.6); Neutrophils % (auto) 63.3 % (37.0-80.0); Nucleated Red Blood Cells % 0.1 %; Red Blood Cells 3.74 10^6/uL (4.5-5.90); Red Cell Distribution Width 14.1 % (11.8-14.3)
[2021-09-21 09:00] LABS: Albumin 3.6 g/dL (3.4-5.0); Potassium 4.5 mmol/L (3.5-5.1)
[2021-09-21 09:04] LABS: Bilirubin, Total 0.4 mg/dL (0.2-1.0); Total Protein 7.4 g/dL (6.4-8.2)
== END | disposition home or self-care (01) ==
LOC: LAB 08:00
PROVIDERS: ATTEND Internal Medicine
DX: C34.11 Malignant neoplasm of upper lobe, right bronchus or lung (principal); E11.9 Type 2 diabetes mellitus without complications
CPT/HCPCS: 36415; 80053; 83036; 84443; 85025; 85652

== ENCOUNTER → 2021-10-04 | Outpatient (CLI) | payer OTHER | END | disposition home or self-care (01) | LOC: XYW 12:26 | PROVIDERS: ATTEND Internal Medicine | DX: I08.2 Rheumatic disorders of both aortic and tricuspid valves (principal) | CPT/HCPCS: 93306 ==

== ENCOUNTER → 2021-11-19 | Outpatient (CLI) | payer OTHER ==
[~2021-11-19] VITALS: Ht 203.2 cm; Wt 111.1 kg
[~2021-11-19] MED LIST changes: +ADENOSINE 93 MG in GIVE UN-DILUTED 0 ML IV ONE
== END | disposition home or self-care (01) ==
LOC: XYW 07:19
PROVIDERS: ATTEND Internal Medicine
DX: I25.810 Atherosclerosis of coronary artery bypass graft(s) without angina pectoris (principal); I73.9 Peripheral vascular disease, unspecified; I10 Essential (primary) hypertension; E11.59 Type 2 diabetes mellitus with other circulatory complications; R53.83 Other fatigue; Z79.4 Long term (current) use of insulin; Z98.62 Peripheral vascular angioplasty status; Z95.1 Presence of aortocoronary bypass graft; Z95.5 Presence of coronary angioplasty implant and graft
CPT/HCPCS: 78452; 93017; A9500; J0153

== ENCOUNTER → 2021-12-22 | Day surgery (SDC) | payer OTHER ==
[2021-12-20 09:23] LABS: Basophils # (auto) 0.1 10 ^3/uL (0-0.2); Eosinophils # (auto) 0.9 10 ^3/uL (0-0.8); Lymphocytes # (auto) 0.9 10 ^3/uL (0.4-5.4); Neutrophils # (auto) 7.2 10 ^3/uL (1.6-8.6); Red Blood Cells 3.99 10^6/uL (4.5-5.90)
[2021-12-20 09:25] LABS: Basophils % (auto) 0.6 % (0.0-2.0); Hematocrit 34.5 % (41.0-53.0); Hemoglobin 11.3 g/dL (13.5-17.5); Lymphocytes % (auto) 9.4 % (10.0-50.0); Mean Corpuscular Hemoglobin 28.4 pg (28.0-32.0); Mean Corpuscular Hgb Conc. 32.8 g/dL (32.0-36.0); Mean Corpuscular Volume 86.6 fL (80.0-100.0); Monocytes # (auto) 0.7 10 ^3/uL (0-1.3); Monocytes % (auto) 6.8 % (0.0-12.0); Neutrophils % (auto) 74.2 % (37.0-80.0); Red Cell Distribution Width 13.7 % (11.8-14.3); White Blood Cell 9.7 10^3/uL (4.4-10.8)
[2021-12-20 09:42] LABS: INR 1.05 (0.9-1.15); Partial Thromboplastin Time 29.1 sec (24.6-33.4)
[2021-12-20 09:50] LABS: Calcium 9.5 mg/dL (8.5-10.1); Potassium 5.4 mmol/L (3.5-5.1)
[2021-12-20 09:53] LABS: Bilirubin, Total 0.4 mg/dL (0.2-1.0); Total Protein 7.9 g/dL (6.4-8.2)
[~2021-12-22] VITALS: Ht 203.2 cm; Wt 106.6 kg
[~2021-12-22] MED LIST changes: -ADENOSINE 93 MG in GIVE UN-DILUTED 0 ML IV ONE; +LIDOCAINE VISCOUS 2% 15ML UD ONE; +MIDAZOLAM HCL 5 MG/ML-1ML VIAL ONE; +SODIUM CHLORIDE LOCK 10 ML ONE; +fentaNYL CITRATE 100 MCG/2 ML VL ONE
[2021-12-22] MEDS: diphenhdrAMINE HCL 50 MG/1 ML VL ONE ×2 (14:52→14:54)
[2021-12-22 15:20] VITALS: BP 120/64
== END | disposition home or self-care (01) ==
LOC: GI 12:38
PROVIDERS: ATTEND Internal Medicine Gastroenterology
DX: K21.00 Gastro-esophageal reflux disease with esophagitis, without bleeding (principal); K44.9 Diaphragmatic hernia without obstruction or gangrene; K29.90 Gastroduodenitis, unspecified, without bleeding; K29.50 Unspecified chronic gastritis without bleeding; Z20.822 Contact with and (suspected) exposure to COVID-19
CPT/HCPCS: 36415; 43239; 80053; 82962; 85025; 85610; 85730; 88305; 88312; 88342; J1200; J2250; J3010; U0003; 99152

== ENCOUNTER 2021-12-27 10:00 | Outpatient (CLI) | payer OTHER ==
[~2021-12-27 10:00] MED LIST changes: -LIDOCAINE VISCOUS 2% 15ML UD ONE; -MIDAZOLAM HCL 5 MG/ML-1ML VIAL ONE; -SODIUM CHLORIDE LOCK 10 ML ONE; -fentaNYL CITRATE 100 MCG/2 ML VL ONE
[2021-12-27 10:31] LABS: Basophils # (auto) 0.1 10 ^3/uL (0-0.2); Basophils % (auto) 0.8 % (0.0-2.0); Eosinophils # (auto) 0.9 10 ^3/uL (0-0.8); Monocytes # (auto) 0.6 10 ^3/uL (0-1.3); Red Cell Distribution Width 14.3 % (11.8-14.3)
[2021-12-27 10:33] LABS: Eosinophils % (auto) 10.9 % (0.0-7.0); Hematocrit 32.9 % (41.0-53.0); Hemoglobin 11.2 g/dL (13.5-17.5); Lymphocytes % (auto) 11.8 % (10.0-50.0); Mean Corpuscular Hgb Conc. 33.9 g/dL (32.0-36.0); Mean Corpuscular Volume 85.5 fL (80.0-100.0); Monocytes % (auto) 7.2 % (0.0-12.0); Neutrophils # (auto) 5.7 10 ^3/uL (1.6-8.6); Neutrophils % (auto) 69.3 % (37.0-80.0); Nucleated Red Blood Cells % 0.1 %; Red Blood Cells 3.84 10^6/uL (4.5-5.90); White Blood Cell 8.2 10^3/uL (4.4-10.8)
[2021-12-27 10:39] LABS: Albumin 3.1 g/dL (3.4-5.0); Calcium 9.2 mg/dL (8.5-10.1); Potassium 4.7 mmol/L (3.5-5.1)
[2021-12-27 10:40] LABS: INR 1.03 (0.9-1.15); Partial Thromboplastin Time 29.3 sec (24.6-33.4)
[2021-12-27 10:43] LABS: BUN/Creatinine Ratio 17.9; Bilirubin, Total 0.4 mg/dL (0.2-1.0); Total Protein 7.7 g/dL (6.4-8.2)
== END 2021-12-27 12:22 | disposition home or self-care (01) ==
LOC: LAB 10:00 → EDSTATUS 12-29 14:06
PROVIDERS: ATTEND Internal Medicine Gastroenterology
DX: D12.6 Benign neoplasm of colon, unspecified (principal); R93.3 Abnormal findings on diagnostic imaging of other parts of digestive tract; Z20.822 Contact with and (suspected) exposure to COVID-19
CPT/HCPCS: 36415; 80053; 85025; 85610; 85730; U0003

== ENCOUNTER → 2022-01-06 | Outpatient (CLI) | payer OTHER ==
[~2022-01-06] MED LIST changes: -ASPI325T4 PO; -ATOR40TA52 PO; -CETI-120 PO; -CLOP75TA70 PO; -FENO160T8 PO; -FLUO40CA2 PO; -FLUT110A PO; -GABA-339 PO; -INSREG3 SUBCUT; -INSUINJ2 SC; -LEVO75TA6 PO; -METF-370 OR; -METO25TA5 PO
[2022-01-06 14:50] LABS: Basophils # (auto) 0 10 ^3/uL (0-0.2); Basophils % (auto) 0.6 % (0.0-2.0); Eosinophils # (auto) 0.6 10 ^3/uL (0-0.8); Eosinophils % (auto) 9.2 % (0.0-7.0); Hematocrit 32.7 % (41.0-53.0); Hemoglobin 10.7 g/dL (13.5-17.5); Lymphocytes # (auto) 0.8 10 ^3/uL (0.4-5.4); Lymphocytes % (auto) 12.6 % (10.0-50.0); Mean Corpuscular Hemoglobin 28.1 pg (28.0-32.0); Mean Corpuscular Hgb Conc. 32.8 g/dL (32.0-36.0); Mean Corpuscular Volume 85.7 fL (80.0-100.0); Monocytes # (auto) 0.5 10 ^3/uL (0-1.3); Monocytes % (auto) 8.3 % (0.0-12.0); Neutrophils # (auto) 4.4 10 ^3/uL (1.6-8.6); Neutrophils % (auto) 69.3 % (37.0-80.0); Red Blood Cells 3.81 10^6/uL (4.5-5.90); Red Cell Distribution Width 14.8 % (11.8-14.3); White Blood Cell 6.4 10^3/uL (4.4-10.8)
[2022-01-06 15:01] LABS: Albumin 2.9 g/dL (3.4-5.0); BUN/Creatinine Ratio 20.5; Calcium 9.2 mg/dL (8.5-10.1); Magnesium 2.3 mg/dL (1.6-2.6)
[2022-01-06 15:04] LABS: Bilirubin, Total 0.2 mg/dL (0.2-1.0); Total Protein 7.4 g/dL (6.4-8.2)
[2022-01-06 15:06] LABS: Hepatitis B Surface Antibody Negative (Negative)
[2022-01-06 15:14] LABS: Thyroid Stimulating Hormone 2.86 uIU/mL (0.358-3.74)
[2022-01-06 15:44] LABS: Hepatitis A Total Antibody Negative (Negative)
[2022-01-06 15:52] LABS: Hepatitis C Antibody Negative (Negative)
== END | disposition home or self-care (01) ==
LOC: LAB 13:58
PROVIDERS: ATTEND Internal Medicine
DX: C34.90 Malignant neoplasm of unspecified part of unspecified bronchus or lung (principal); E11.22 Type 2 diabetes mellitus with diabetic chronic kidney disease; N18.30 Chronic kidney disease, stage 3 unspecified; Z88.8 Allergy status to other drugs, medicaments and biological substances
CPT/HCPCS: 36415; 80053; 82306; 83615; 83735; 84436; 84443; 85025; 86704; 86706; 86708; 86803; 87340

== ENCOUNTER → 2022-01-24 | Outpatient (CLI) | payer OTHER ==
[2022-01-24 14:02] LABS: Basophils # (auto) 0.1 10 ^3/uL (0-0.2); Basophils % (auto) 0.8 % (0.0-2.0); Eosinophils # (auto) 0.6 10 ^3/uL (0-0.8); Hemoglobin 10.7 g/dL (13.5-17.5); Monocytes # (auto) 0.6 10 ^3/uL (0-1.3)
[2022-01-24 14:04] LABS: Eosinophils % (auto) 8.7 % (0.0-7.0); Lymphocytes % (auto) 13.5 % (10.0-50.0); Mean Corpuscular Hemoglobin 27.8 pg (28.0-32.0); Mean Corpuscular Hgb Conc. 32.5 g/dL (32.0-36.0); Mean Corpuscular Volume 85.6 fL (80.0-100.0); Neutrophils # (auto) 5.1 10 ^3/uL (1.6-8.6); Red Blood Cells 3.85 10^6/uL (4.5-5.90); Red Cell Distribution Width 15.2 % (11.8-14.3); White Blood Cell 7.4 10^3/uL (4.4-10.8)
[2022-01-24 14:36] LABS: Albumin 3.1 g/dL (3.4-5.0); BUN/Creatinine Ratio 21.4; Bilirubin, Total 0.3 mg/dL (0.2-1.0); Calcium 9.4 mg/dL (8.5-10.1); Magnesium 2.3 mg/dL (1.6-2.6); Potassium 4.6 mmol/L (3.5-5.1); Total Protein 7.6 g/dL (6.4-8.2)
[2022-01-24 14:47] LABS: Thyroid Stimulating Hormone 3.71 uIU/mL (0.358-3.74)
== END | disposition home or self-care (01) ==
LOC: LAB 13:01
PROVIDERS: ATTEND Internal Medicine
DX: C34.90 Malignant neoplasm of unspecified part of unspecified bronchus or lung (principal); Z88.8 Allergy status to other drugs, medicaments and biological substances
CPT/HCPCS: 36415; 80053; 82306; 83615; 83735; 84436; 84443; 85025

== ENCOUNTER → 2022-02-25 | Outpatient (CLI) | payer OTHER ==
[2022-02-25 13:30] LABS: Basophils # (auto) 0.1 10 ^3/uL (0-0.2); Basophils % (auto) 1.1 % (0.0-2.0); Eosinophils # (auto) 0.5 10 ^3/uL (0-0.8); Eosinophils % (auto) 6.9 % (0.0-7.0); Hematocrit 33.3 % (41.0-53.0); Hemoglobin 11.2 g/dL (13.5-17.5); Lymphocytes # (auto) 0.8 10 ^3/uL (0.4-5.4); Lymphocytes % (auto) 11.2 % (10.0-50.0); Mean Corpuscular Hemoglobin 27.9 pg (28.0-32.0); Mean Corpuscular Hgb Conc. 33.5 g/dL (32.0-36.0); Mean Corpuscular Volume 83.3 fL (80.0-100.0); Monocytes # (auto) 0.5 10 ^3/uL (0-1.3); Monocytes % (auto) 7.4 % (0.0-12.0); Neutrophils # (auto) 4.9 10 ^3/uL (1.6-8.6); Neutrophils % (auto) 73.4 % (37.0-80.0); White Blood Cell 6.7 10^3/uL (4.4-10.8)
[2022-02-25 14:07] LABS: Albumin 3.4 g/dL (3.4-5.0); Calcium 8.9 mg/dL (8.5-10.1); Magnesium 1.8 mg/dL (1.6-2.6); Potassium 4.8 mmol/L (3.5-5.1)
[2022-02-25 14:09] LABS: % Iron Saturation 13.4 % (20-55)
[2022-02-25 14:11] LABS: BUN/Creatinine Ratio 19.3; Bilirubin, Total 0.2 mg/dL (0.2-1.0); Total Protein 7.5 g/dL (6.4-8.2)
[2022-02-25 14:16] LABS: Folate (Folic Acid) > 24.00 ng/mL (5.38-24)
[2022-02-25 14:20] LABS: Thyroid Stimulating Hormone 3.45 uIU/mL (0.358-3.74)
== END | disposition home or self-care (01) ==
LOC: LAB 13:08
PROVIDERS: ATTEND Internal Medicine
DX: C34.11 Malignant neoplasm of upper lobe, right bronchus or lung (principal); E11.9 Type 2 diabetes mellitus without complications; I10 Essential (primary) hypertension; D68.69 Other thrombophilia
CPT/HCPCS: 36415; 80053; 82306; 82607; 82746; 83036; 83540; 83550; 83615; 83735; 84436; 84443; 85025

== ENCOUNTER → 2022-03-28 | Outpatient (CLI) | payer OTHER ==
[2022-03-28 10:17] LABS: Basophils # (auto) 0 10 ^3/uL (0-0.2); Basophils % (auto) 0.7 % (0.0-2.0); Eosinophils # (auto) 0.4 10 ^3/uL (0-0.8); Eosinophils % (auto) 6.1 % (0.0-7.0); Hematocrit 35.7 % (41.0-53.0); Hemoglobin 11.7 g/dL (13.5-17.5); Lymphocytes # (auto) 0.6 10 ^3/uL (0.4-5.4); Lymphocytes % (auto) 10.6 % (10.0-50.0); Mean Corpuscular Hemoglobin 27.8 pg (28.0-32.0); Mean Corpuscular Hgb Conc. 32.8 g/dL (32.0-36.0); Mean Corpuscular Volume 84.7 fL (80.0-100.0); Monocytes # (auto) 0.5 10 ^3/uL (0-1.3); Monocytes % (auto) 8.8 % (0.0-12.0); Neutrophils # (auto) 4.5 10 ^3/uL (1.6-8.6); Neutrophils % (auto) 73.8 % (37.0-80.0); Red Blood Cells 4.21 10^6/uL (4.5-5.90); Red Cell Distribution Width 15.4 % (11.8-14.3); White Blood Cell 6.1 10^3/uL (4.4-10.8)
[2022-03-28 10:54] LABS: Potassium 5.1 mmol/L (3.5-5.1)
[2022-03-28 11:04] LABS: Albumin 3.4 g/dL (3.4-5.0); BUN/Creatinine Ratio 17.4; Bilirubin, Total 0.4 mg/dL (0.2-1.0); Calcium 9.4 mg/dL (8.5-10.1); Magnesium 2.3 mg/dL (1.6-2.6); Total Protein 7.8 g/dL (6.4-8.2)
[2022-03-28 11:16] LABS: Thyroid Stimulating Hormone 3.08 uIU/mL (0.358-3.74)
== END | disposition home or self-care (01) ==
LOC: LAB 09:51
PROVIDERS: ATTEND Internal Medicine
DX: C34.90 Malignant neoplasm of unspecified part of unspecified bronchus or lung (principal)
CPT/HCPCS: 36415; 80053; 82306; 83615; 83735; 84436; 84443; 85025

== ENCOUNTER → 2022-05-03 | Outpatient (CLI) | payer OTHER ==
[2022-05-03 11:10] LABS: Basophils # (auto) 0.1 10 ^3/uL (0-0.2); Basophils % (auto) 1.1 % (0.0-2.0); Eosinophils # (auto) 0.3 10 ^3/uL (0-0.8); Hematocrit 35.2 % (41.0-53.0); Hemoglobin 11.8 g/dL (13.5-17.5); Lymphocytes # (auto) 0.6 10 ^3/uL (0.4-5.4); Lymphocytes % (auto) 9.6 % (10.0-50.0); Mean Corpuscular Hemoglobin 28.1 pg (28.0-32.0); Mean Corpuscular Hgb Conc. 33.6 g/dL (32.0-36.0); Mean Corpuscular Volume 83.7 fL (80.0-100.0); Monocytes # (auto) 0.6 10 ^3/uL (0-1.3); Neutrophils # (auto) 4.8 10 ^3/uL (1.6-8.6); Neutrophils % (auto) 75.3 % (37.0-80.0); Nucleated Red Blood Cells % 0.2 %; Red Cell Distribution Width 15.2 % (11.8-14.3); White Blood Cell 6.4 10^3/uL (4.4-10.8)
[2022-05-03 11:45] LABS: Albumin 3.4 g/dL (3.4-5.0); Calcium 9.4 mg/dL (8.5-10.1); Magnesium 2.1 mg/dL (1.6-2.6); Potassium 4.8 mmol/L (3.5-5.1)
[2022-05-03 11:50] LABS: BUN/Creatinine Ratio 24.6; Bilirubin, Total 0.3 mg/dL (0.2-1.0); Total Protein 7.6 g/dL (6.4-8.2)
== END | disposition home or self-care (01) ==
LOC: LAB 10:44
PROVIDERS: ATTEND Internal Medicine
DX: Z12.11 Encounter for screening for malignant neoplasm of colon (principal); E11.9 Type 2 diabetes mellitus without complications; E55.9 Vitamin D deficiency, unspecified
CPT/HCPCS: 36415; 80053; 82306; 83615; 83735; 84436; 84439; 85025

== ENCOUNTER → 2022-05-30 | Outpatient (CLI) | payer OTHER ==
[2022-05-30 13:14] LABS: Urine WBC None Seen /hpf (0 - 3)
[2022-05-30 13:23] LABS: Basophils # (auto) 0.1 10 ^3/uL (0-0.2); Basophils % (auto) 0.9 % (0.0-2.0); Eosinophils # (auto) 0.3 10 ^3/uL (0-0.8); Eosinophils % (auto) 4.9 % (0.0-7.0); Hematocrit 37.6 % (41.0-53.0); Hemoglobin 12.4 g/dL (13.5-17.5); Lymphocytes # (auto) 0.8 10 ^3/uL (0.4-5.4); Lymphocytes % (auto) 11.4 % (10.0-50.0); Mean Corpuscular Hemoglobin 28.2 pg (28.0-32.0); Mean Corpuscular Volume 85.3 fL (80.0-100.0); Monocytes # (auto) 0.6 10 ^3/uL (0-1.3); Monocytes % (auto) 9.6 % (0.0-12.0); Neutrophils # (auto) 4.8 10 ^3/uL (1.6-8.6); Neutrophils % (auto) 73.2 % (37.0-80.0); Nucleated Red Blood Cells % 0.1 %; Red Cell Distribution Width 15.9 % (11.8-14.3); White Blood Cell 6.6 10^3/uL (4.4-10.8)
[2022-05-30 13:30] LABS: Urine Bacteria NONE SEEN /hpf (None Seen); Urine Blood Negative /uL (Negative); Urine Specific Gravity 1.015 (1.001-1.035)
[2022-05-30 13:46] LABS: Albumin 3.4 g/dL (3.4-5.0); Calcium 9.5 mg/dL (8.5-10.1); Magnesium 2.2 mg/dL (1.6-2.6); Potassium 4.6 mmol/L (3.5-5.1)
[2022-05-30 13:48] LABS: Bilirubin, Total 0.3 mg/dL (0.2-1.0); Total Protein 7.6 g/dL (6.4-8.2)
[2022-05-30 14:01] LABS: Thyroid Stimulating Hormone 4.11 uIU/mL (0.358-3.74)
== END | disposition home or self-care (01) ==
LOC: LAB 12:54
PROVIDERS: ATTEND Internal Medicine
DX: C34.90 Malignant neoplasm of unspecified part of unspecified bronchus or lung (principal); N40.1 Benign prostatic hyperplasia with lower urinary tract symptoms; N39.0 Urinary tract infection, site not specified
CPT/HCPCS: 36415; 80053; 81001; 82306; 83615; 83735; 84153; 84436; 84443; 85025; 87086

== ENCOUNTER 2022-06-15 07:50 | Day surgery (SDC) | payer MEDICAID, MEDICARE, OTHER ==
[2022-06-14 12:21] LABS: Basophils # (auto) 0.1 10 ^3/uL (0-0.2); Basophils % (auto) 1.2 % (0.0-2.0); Eosinophils # (auto) 0.3 10 ^3/uL (0-0.8); Eosinophils % (auto) 4.4 % (0.0-7.0); Hematocrit 36.5 % (41.0-53.0); Hemoglobin 12.4 g/dL (13.5-17.5); Lymphocytes # (auto) 0.8 10 ^3/uL (0.4-5.4); Lymphocytes % (auto) 12.4 % (10.0-50.0); Mean Corpuscular Hemoglobin 28.8 pg (28.0-32.0); Mean Corpuscular Hgb Conc. 33.9 g/dL (32.0-36.0); Mean Corpuscular Volume 84.9 fL (80.0-100.0); Monocytes # (auto) 0.6 10 ^3/uL (0-1.3); Monocytes % (auto) 10.1 % (0.0-12.0); Neutrophils # (auto) 4.6 10 ^3/uL (1.6-8.6); Neutrophils % (auto) 71.9 % (37.0-80.0); Red Blood Cells 4.29 10^6/uL (4.5-5.90); Red Cell Distribution Width 16.1 % (11.8-14.3); White Blood Cell 6.4 10^3/uL (4.4-10.8)
[2022-06-14 12:31] LABS: INR 0.98 (0.9-1.15); Partial Thromboplastin Time 27.1 sec (24.6-33.4)
[2022-06-14 12:57] LABS: Potassium 4.6 mmol/L (3.5-5.1)
[2022-06-14 13:00] LABS: Albumin 3.4 g/dL (3.4-5.0); BUN/Creatinine Ratio 20.7 (10.0-20.0); Calcium 10.4 mg/dL (8.5-10.1)
[2022-06-14 13:03] LABS: Bilirubin, Total 0.3 mg/dL (0.2-1.0); Total Protein 7.8 g/dL (6.4-8.2)
[~2022-06-15] VITALS: Ht 203.2 cm; Wt 108.9 kg
[~2022-06-15 07:50] MED LIST changes: -CLIN300C8 PO; -DOXY-286 PO; +FAMO20TA10 PO; +FLUO60TA7 PO; +GABA-1308 PO; +LISI2.5T47 PO; -SACC250C PO
[2022-06-15] MEDS ORDERED: ceFAZolin 1GM/50ML 100 ML IV ONE (07:56)
[2022-06-15 08:41] LABS: Urine Bacteria NONE SEEN /hpf (None Seen); Urine Blood Negative /uL (Negative); Urine Specific Gravity 1.018 (1.001-1.035); Urine WBC <1 /hpf (0 - 3)
[2022-06-15] MEDS ORDERED: MEPERIDINE HCL (25 MG/ML) 1ML VIAL ONE (09:45)
[2022-06-15] MEDS ORDERED: fentaNYL CITRATE 100 MCG/2 ML VL ONE ×2 (09:46→12:22)
[2022-06-15] MEDS ORDERED: MIDAZOLAM HCL 2MG/2ML 2ml VIAL (1mg/ml) ONE ×2 (09:46→12:22)
[2022-06-15] MEDS ORDERED: MORPHINE SULFATE 4 MG/ML SYR/VIAL IV PRN (10:30)
[2022-06-15] MEDS ORDERED: ACCU-CHEK COMFORT CURVE STRIP VI ONE (10:30)
[2022-06-15] MEDS ORDERED: HYDROmorphone HCL 2 MG/ML VL/or syr IV PRN (10:30)
[2022-06-15] MEDS ORDERED: ONDANSETRON HCL 4 MG/2 ML VIAL IV PRN (10:30)
[2022-06-15] MEDS ORDERED: LABETALOL HCL 5 MG/ML 4ML SYRINGE IV PRN (10:30)
[2022-06-15] MEDS ORDERED: MIDAZOLAM HCL 2MG/2ML 2ml VIAL (1mg/ml) IV PRN (10:30)
[2022-06-15] MEDS ORDERED: ePHEDrine SULFATE 50 MG/ML AMP IV PRN (10:30)
[2022-06-15 10:53] VITALS: BP 128/45
[2022-06-15] MEDS ORDERED: DexAMETHasone SOD PHOS 10MG/1ML VIAL INJ ONE ×2 (11:25→12:46)
[2022-06-15] MEDS ORDERED: MEPERIDINE HCL (50 MG/ML) 1 ML VIAL ONE (12:22)
[2022-06-15] MEDS ORDERED: PROPOFOL 10 MG/ML 20 ML IV ONE (12:46)
[2022-06-15] MEDS ORDERED: SUGAMMADEX 200mg/2ml Vial (100MG/ML) IV ONE (13:51)
== END 2022-06-15 11:07 | disposition home or self-care (01) ==
LOC: SUR 07:50
PROVIDERS: ATTEND Surgery
DX: Z45.2 Encounter for adjustment and management of vascular access device (principal); C34.90 Malignant neoplasm of unspecified part of unspecified bronchus or lung; R06.02 Shortness of breath; E11.9 Type 2 diabetes mellitus without complications; I10 Essential (primary) hypertension; Z79.899 Other long term (current) drug therapy
CPT/HCPCS: 36415; 36590; 80053; 81001; 82962; 85025; 85610; 85730; 88300; J0690; J1100; J2175; J2250; J2704; J3010

== ENCOUNTER → 2022-06-20 | Outpatient (CLI) | payer OTHER ==
[~2022-06-20] MED LIST changes: -GABA-1308 PO; +GABA100C9 PO
== END | disposition home or self-care (01) ==
LOC: XYW 08:25
PROVIDERS: ATTEND Internal Medicine
DX: R60.0 Localized edema (principal)
CPT/HCPCS: 93306

== ENCOUNTER → 2022-06-28 | Outpatient (CLI) | payer OTHER ==
[2022-06-28 10:55] LABS: Basophils # (auto) 0 10 ^3/uL (0-0.2); Basophils % (auto) 0.6 % (0.0-2.0); Eosinophils # (auto) 0.3 10 ^3/uL (0-0.8); Eosinophils % (auto) 4.1 % (0.0-7.0); Hematocrit 39.1 % (41.0-53.0); Hemoglobin 12.9 g/dL (13.5-17.5); Lymphocytes # (auto) 0.8 10 ^3/uL (0.4-5.4); Lymphocytes % (auto) 10.3 % (10.0-50.0); Mean Corpuscular Hemoglobin 28.7 pg (28.0-32.0); Mean Corpuscular Hgb Conc. 33.1 g/dL (32.0-36.0); Mean Corpuscular Volume 86.6 fL (80.0-100.0); Monocytes # (auto) 0.5 10 ^3/uL (0-1.3); Monocytes % (auto) 6.5 % (0.0-12.0); Neutrophils % (auto) 78.5 % (37.0-80.0); Nucleated Red Blood Cells % 0.1 %; Red Blood Cells 4.51 10^6/uL (4.5-5.90); Red Cell Distribution Width 15.8 % (11.8-14.3); White Blood Cell 7.7 10^3/uL (4.4-10.8)
[2022-06-28 11:30] LABS: Thyroid Stimulating Hormone 3.85 uIU/mL (0.358-3.74)
[2022-06-28 11:34] LABS: Albumin 3.6 g/dL (3.4-5.0); BUN/Creatinine Ratio 24.1 (10.0-20.0); Calcium 9.7 mg/dL (8.5-10.1); Magnesium 1.9 mg/dL (1.6-2.6); Potassium 4.6 mmol/L (3.5-5.1)
[2022-06-28 11:37] LABS: Bilirubin, Total 0.3 mg/dL (0.2-1.0); Total Protein 7.9 g/dL (6.4-8.2)
[2022-06-28 11:57] LABS: % Iron Saturation 16.8 % (20-55)
== END | disposition home or self-care (01) ==
LOC: LAB 09:55
PROVIDERS: ATTEND Internal Medicine
DX: C34.90 Malignant neoplasm of unspecified part of unspecified bronchus or lung (principal)
CPT/HCPCS: 36415; 80053; 82306; 82728; 83540; 83550; 83615; 83735; 84436; 84443; 85025

== ENCOUNTER 2022-08-24 12:52 | Day surgery (SDC) | payer MEDICAID, MEDICARE, OTHER ==
[2022-08-22 14:09] LABS: Basophils # (auto) 0.1 10 ^3/uL (0-0.2); Eosinophils # (auto) 0.2 10 ^3/uL (0-0.8); Hematocrit 39.7 % (41.0-53.0); Hemoglobin 12.9 g/dL (13.5-17.5); Lymphocytes # (auto) 0.9 10 ^3/uL (0.4-5.4); Lymphocytes % (auto) 14.3 % (10.0-50.0); Mean Corpuscular Hemoglobin 28.6 pg (28.0-32.0); Mean Corpuscular Hgb Conc. 32.6 g/dL (32.0-36.0); Mean Corpuscular Volume 87.8 fL (80.0-100.0); Monocytes # (auto) 0.7 10 ^3/uL (0-1.3); Monocytes % (auto) 11.2 % (0.0-12.0); Neutrophils # (auto) 4.3 10 ^3/uL (1.6-8.6); Neutrophils % (auto) 69.5 % (37.0-80.0); Red Blood Cells 4.52 10^6/uL (4.5-5.90); Red Cell Distribution Width 14.9 % (11.8-14.3); White Blood Cell 6.2 10^3/uL (4.4-10.8)
[2022-08-22 14:48] LABS: INR 1.03 (0.9-1.15); Partial Thromboplastin Time 27.6 SEC (24.5-34.5)
[2022-08-22 14:50] LABS: Albumin 3.9 g/dL (3.4-5.0); Calcium 9.6 mg/dL (8.5-10.1); Potassium 4.8 mmol/L (3.5-5.1)
[2022-08-22 14:53] LABS: Bilirubin, Total 0.3 mg/dL (0.2-1.0); Total Protein 8.1 g/dL (6.4-8.2)
[~2022-08-24] VITALS: Ht 203.2 cm; Wt 111.1 kg
[~2022-08-24 12:52] MED LIST changes: +FLUO40CA2 PO; -FLUO60TA7 PO; +GABA-339 PO; -GABA100C9 PO; +METF-489 PO
[2022-08-24 16:58] VITALS: BP 132/77
== END 2022-08-24 17:08 | disposition home or self-care (01) ==
LOC: GI 12:52
PROVIDERS: ATTEND Internal Medicine Gastroenterology
DX: Z12.11 Encounter for screening for malignant neoplasm of colon (principal); D12.2 Benign neoplasm of ascending colon; D12.3 Benign neoplasm of transverse colon; D12.6 Benign neoplasm of colon, unspecified; K64.8 Other hemorrhoids; Z83.3 Family history of diabetes mellitus; Z95.5 Presence of coronary angioplasty implant and graft; Z79.84 Long term (current) use of oral hypoglycemic drugs; Z87.891 Personal history of nicotine dependence
CPT/HCPCS: 36415; 45380; 45385; 80053; 82962; 85025; 85610; 85730; 88305; J7030; 99152; 99153

== ENCOUNTER → 2022-10-13 | Outpatient (CLI) | payer OTHER ==
[2022-10-13 13:57] LABS: Basophils # (auto) 0.1 10 ^3/uL (0-0.2); Eosinophils # (auto) 0.4 10 ^3/uL (0-0.8); Eosinophils % (auto) 6.9 % (0.0-7.0); Hematocrit 39.1 % (41.0-53.0); Hemoglobin 12.8 g/dL (13.5-17.5); Lymphocytes # (auto) 1.1 10 ^3/uL (0.4-5.4); Lymphocytes % (auto) 17.6 % (10.0-50.0); Mean Corpuscular Hemoglobin 29.1 pg (28.0-32.0); Mean Corpuscular Hgb Conc. 32.7 g/dL (32.0-36.0); Mean Corpuscular Volume 88.9 fL (80.0-100.0); Monocytes # (auto) 0.6 10 ^3/uL (0-1.3); Monocytes % (auto) 9.3 % (0.0-12.0); Neutrophils % (auto) 65.2 % (37.0-80.0); Nucleated Red Blood Cells % 0.1 %; Red Blood Cells 4.39 10^6/uL (4.5-5.90); Red Cell Distribution Width 14.9 % (11.8-14.3); White Blood Cell 6.1 10^3/uL (4.4-10.8)
[2022-10-13 14:27] LABS: Albumin 3.8 g/dL (3.4-5.0); Calcium 9.2 mg/dL (8.5-10.1); Potassium 5.5 mmol/L (3.5-5.1)
[2022-10-13 14:31] LABS: BUN/Creatinine Ratio 26.9 (10.0-20.0); Bilirubin, Total 0.2 mg/dL (0.2-1.0); Total Protein 7.5 g/dL (6.4-8.2)
[2022-10-13 14:38] LABS: Thyroid Stimulating Hormone 4.54 uIU/mL (0.358-3.74)
== END | disposition home or self-care (01) ==
LOC: LAB 13:32
PROVIDERS: ATTEND Internal Medicine
DX: C34.90 Malignant neoplasm of unspecified part of unspecified bronchus or lung (principal); Z88.8 Allergy status to other drugs, medicaments and biological substances
CPT/HCPCS: 36415; 80053; 83615; 84436; 84443; 85025

== ENCOUNTER → 2022-12-15 | Outpatient (CLI) | payer OTHER | END | disposition home or self-care (01) | LOC: XYW 09:39 | PROVIDERS: ATTEND Student in an Organized Health Care Education/Training Program | DX: I08.0 Rheumatic disorders of both mitral and aortic valves (principal); R06.02 Shortness of breath | CPT/HCPCS: 93306 ==

== ENCOUNTER → 2022-12-19 | Outpatient (CLI) | payer OTHER ==
[2022-12-19 11:28] LABS: Basophils # (auto) 0.1 10 ^3/uL (0-0.2); Basophils % (auto) 0.9 % (0.0-2.0); Eosinophils # (auto) 0.4 10 ^3/uL (0-0.8); Eosinophils % (auto) 5.3 % (0.0-7.0); Hematocrit 35.8 % (41.0-53.0); Hemoglobin 11.9 g/dL (13.5-17.5); Lymphocytes # (auto) 0.9 10 ^3/uL (0.4-5.4); Lymphocytes % (auto) 13.4 % (10.0-50.0); Mean Corpuscular Hemoglobin 29.7 pg (28.0-32.0); Mean Corpuscular Hgb Conc. 33.3 g/dL (32.0-36.0); Mean Corpuscular Volume 89.1 fL (80.0-100.0); Monocytes # (auto) 0.6 10 ^3/uL (0-1.3); Monocytes % (auto) 9.2 % (0.0-12.0); Neutrophils # (auto) 4.9 10 ^3/uL (1.6-8.6); Neutrophils % (auto) 71.2 % (37.0-80.0); Red Blood Cells 4.02 10^6/uL (4.5-5.90); Red Cell Distribution Width 13.4 % (11.8-14.3); White Blood Cell 6.9 10^3/uL (4.4-10.8)
[2022-12-19 12:07] LABS: Albumin 4.5 g/dL (3.2-4.8); Alkaline Phosphatase 54 U/L (46-116); Anion Gap 6 (5-15); Aspartate Aminotransferase 14 U/L (13-40); BUN/Creatinine Ratio 16.3 (10.0-20.0); Bilirubin, Total 0.3 mg/dL (0.2-1.0); Blood Urea Nitrogen 23 mg/dL (9-23); Calcium 9.9 mg/dL (8.5-10.1); Carbon Dioxide 27 mmol/L (20-30); Chloride 103 mmol/L (98-107); Glucose 201 mg/dL (74-106); Potassium 5.5 mmol/L (3.5-5.1); Sodium 136 mmol/L (136-145); Total Protein 7.5 g/dL (5.7-8.2)
[2022-12-19 12:23] LABS: Alanine Aminotransferase < 9 U/L (7-40)
== END | disposition home or self-care (01) ==
LOC: LAB 11:11
PROVIDERS: ATTEND Physician Assistant
DX: C34.90 Malignant neoplasm of unspecified part of unspecified bronchus or lung (principal); E11.9 Type 2 diabetes mellitus without complications; Z88.8 Allergy status to other drugs, medicaments and biological substances
CPT/HCPCS: 36415; 80053; 83036; 83615; 85025

== ENCOUNTER → 2023-01-23 | Outpatient (CLI) | payer OTHER ==
[2023-01-23 08:51] LABS: Basophils # (auto) 0 10 ^3/uL (0-0.2); Basophils % (auto) 0.5 % (0.0-2.0); Eosinophils # (auto) 0.5 10 ^3/uL (0-0.8); Eosinophils % (auto) 6.5 % (0.0-7.0); Hemoglobin 12.7 g/dL (13.5-17.5); Lymphocytes % (auto) 13.4 % (10.0-50.0); Mean Corpuscular Hemoglobin 28.8 pg (28.0-32.0); Mean Corpuscular Hgb Conc. 32.6 g/dL (32.0-36.0); Mean Corpuscular Volume 88.4 fL (80.0-100.0); Monocytes # (auto) 0.6 10 ^3/uL (0-1.3); Monocytes % (auto) 7.4 % (0.0-12.0); Neutrophils # (auto) 5.5 10 ^3/uL (1.6-8.6); Neutrophils % (auto) 72.2 % (37.0-80.0); Red Blood Cells 4.41 10^6/uL (4.5-5.90); Red Cell Distribution Width 13.9 % (11.8-14.3); White Blood Cell 7.6 10^3/uL (4.4-10.8)
[2023-01-23 09:59] LABS: Alanine Aminotransferase 15 U/L (7-40); Albumin 4.6 g/dL (3.2-4.8); Alkaline Phosphatase 51 U/L (46-116); Anion Gap 7 (5-15); Aspartate Aminotransferase 14 U/L (13-40); BUN/Creatinine Ratio 16.9 (10.0-20.0); Bilirubin, Total 0.2 mg/dL (0.2-1.0); Blood Urea Nitrogen 23 mg/dL (9-23); Calcium 10.1 mg/dL (8.5-10.1); Carbon Dioxide 27 mmol/L (20-30); Chloride 101 mmol/L (98-107); Glucose 206 mg/dL (74-106); Potassium 5.2 mmol/L (3.5-5.1); Sodium 135 mmol/L (136-145); Total Protein 7.5 g/dL (5.7-8.2)
[2023-01-23 11:39] LABS: Thyroid Stimulating Hormone 4.2 uIU/mL (0.358-3.74)
== END | disposition home or self-care (01) ==
LOC: LAB 08:27
PROVIDERS: ATTEND Internal Medicine
DX: C34.90 Malignant neoplasm of unspecified part of unspecified bronchus or lung (principal); E11.9 Type 2 diabetes mellitus without complications; Z88.8 Allergy status to other drugs, medicaments and biological substances
CPT/HCPCS: 36415; 80053; 83615; 84436; 84443; 85025

== ENCOUNTER → 2023-03-29 | Outpatient (CLI) | payer OTHER ==
[2023-03-29 12:09] LABS: Basophils # (auto) 0.1 10 ^3/uL (0-0.2); Basophils % (auto) 1.1 % (0.0-2.0); Eosinophils # (auto) 0.3 10 ^3/uL (0-0.8); Hemoglobin 12.2 g/dL (13.5-17.5); Lymphocytes # (auto) 0.9 10 ^3/uL (0.4-5.4); Lymphocytes % (auto) 16.3 % (10.0-50.0); Mean Corpuscular Hemoglobin 29.1 pg (28.0-32.0); Mean Corpuscular Hgb Conc. 32.9 g/dL (32.0-36.0); Mean Corpuscular Volume 88.5 fL (80.0-100.0); Monocytes # (auto) 0.5 10 ^3/uL (0-1.3); Neutrophils # (auto) 3.8 10 ^3/uL (1.6-8.6); Neutrophils % (auto) 68.6 % (37.0-80.0); Red Blood Cells 4.18 10^6/uL (4.5-5.90); Red Cell Distribution Width 14.4 % (11.8-14.3); White Blood Cell 5.5 10^3/uL (4.4-10.8)
[2023-03-29 12:30] LABS: Alanine Aminotransferase 13 U/L (7-40); Alkaline Phosphatase 63 U/L (46-116); Anion Gap 5 (5-15); BUN/Creatinine Ratio 17.3 (10.0-20.0); Blood Urea Nitrogen 22 mg/dL (9-23); Carbon Dioxide 27 mmol/L (20-30); Chloride 100 mmol/L (98-107); Glucose 360 mg/dL (74-106); Potassium 4.8 mmol/L (3.5-5.1); Sodium 132 mmol/L (136-145); Triglycerides 261 mg/dL (< 150)
[2023-03-29 12:31] LABS: Albumin 4.4 g/dL (3.2-4.8); Aspartate Aminotransferase 15 U/L (13-40); LDL Cholesterol 138 mg/dL (< 100)
[2023-03-29 12:32] LABS: Bilirubin, Total 0.4 mg/dL (0.2-1.0); Cholesterol 207 mg/dL (< 200); HDL Cholesterol 36 mg/dL (40-59); Total Protein 7.6 g/dL (5.7-8.2)
[2023-03-29 12:43] LABS: Thyroid Stimulating Hormone 3.78 uIU/mL (0.55-4.78)
== END | disposition home or self-care (01) ==
LOC: LAB 11:47
PROVIDERS: ATTEND Internal Medicine
DX: Z12.11 Encounter for screening for malignant neoplasm of colon (principal); C34.11 Malignant neoplasm of upper lobe, right bronchus or lung; E11.9 Type 2 diabetes mellitus without complications; D64.9 Anemia, unspecified; E03.9 Hypothyroidism, unspecified; C79.51 Secondary malignant neoplasm of bone
CPT/HCPCS: 36415; 80053; 80061; 83036; 83615; 84443; 85025

== ENCOUNTER → 2023-04-21 | Outpatient (CLI) | payer OTHER ==
[2023-04-21 13:56] LABS: Basophils # (auto) 0.1 10 ^3/uL (0-0.2); Basophils % (auto) 1.4 % (0.0-2.0); Eosinophils # (auto) 0.2 10 ^3/uL (0-0.8); Eosinophils % (auto) 4.2 % (0.0-7.0); Hemoglobin 12.5 g/dL (13.5-17.5); Lymphocytes # (auto) 0.7 10 ^3/uL (0.4-5.4); Lymphocytes % (auto) 12.8 % (10.0-50.0); Mean Corpuscular Hemoglobin 29.9 pg (28.0-32.0); Mean Corpuscular Hgb Conc. 33.9 g/dL (32.0-36.0); Mean Corpuscular Volume 88.4 fL (80.0-100.0); Monocytes # (auto) 0.4 10 ^3/uL (0-1.3); Monocytes % (auto) 7.6 % (0.0-12.0); Neutrophils # (auto) 4.3 10 ^3/uL (1.6-8.6); Red Blood Cells 4.19 10^6/uL (4.5-5.90); Red Cell Distribution Width 14.1 % (11.8-14.3); White Blood Cell 5.8 10^3/uL (4.4-10.8)
[2023-04-21 14:33] LABS: Alanine Aminotransferase 11 U/L (7-40); Albumin 4.2 g/dL (3.2-4.8); Alkaline Phosphatase 67 U/L (46-116); Anion Gap 5 (5-15); Aspartate Aminotransferase 11 U/L (13-40); BUN/Creatinine Ratio 19.6 (10.0-20.0); Bilirubin, Total 0.3 mg/dL (0.2-1.0); Blood Urea Nitrogen 29 mg/dL (9-23); Calcium 9.5 mg/dL (8.7-10.4); Carbon Dioxide 28 mmol/L (20-30); Chloride 99 mmol/L (98-107); Glucose 346 mg/dL (74-106); Potassium 4.7 mmol/L (3.5-5.1); Sodium 132 mmol/L (136-145); Total Protein 7.2 g/dL (5.7-8.2)
== END | disposition home or self-care (01) ==
LOC: LAB 13:39
PROVIDERS: ATTEND Internal Medicine Hematology & Oncology
DX: C34.11 Malignant neoplasm of upper lobe, right bronchus or lung (principal); C79.51 Secondary malignant neoplasm of bone
CPT/HCPCS: 36415; 80053; 82378; 83615; 85025

== ENCOUNTER 2023-04-25 17:15 | Inpatient (IN) | payer OTHER ==
[~2023-04-25] VITALS: Ht 198.1 cm; Wt 105.9 kg
[2023-04-25] MEDS ORDERED: MORPHINE SULFATE INJ 2 MG/ml SYRG IV PRN (18:15)
[2023-04-25] MEDS ORDERED: HYDROcodone-ACET 5/325MG TAB PO PRN (18:15)
[2023-04-25] MEDS ORDERED: DEXTROSE (50%) 50ML SYRG IV PRN (18:15)
[2023-04-25] MEDS ORDERED: ONDANSETRON HCL 4 MG/2 ML VIAL IV PRN (18:15)
[2023-04-25] MEDS ORDERED: DOCUSATE SOD 100 MG CAP PO PRN (18:15)
[2023-04-25] MEDS ORDERED: INSLANTI SC (18:18)
[2023-04-25] MEDS ORDERED: HYDR12.59 PO (18:18)
[2023-04-25] MEDS ORDERED: FLUO40CA PO (18:18)
[2023-04-25] MEDS ORDERED: LEV25T PO (18:18)
[2023-04-25] MEDS ORDERED: MET25T PO (18:18)
[2023-04-25] MEDS ORDERED: LOS25T PO (18:18)
[2023-04-25] MEDS ORDERED: FENO160T PO (18:18)
[2023-04-25] MEDS ORDERED: BENZ100C97 PO (18:58)
[2023-04-25] MEDS ORDERED: Benzonatate 100 MG CAPSULE PO PRN (19:00)
[2023-04-25 19:20] VITALS: PULSE 85; RESP 18; O2SAT 98
[2023-04-25 19:21] VITALS: BP 126/73; PULSE 85; RESP 18; O2SAT 98
[2023-04-25 19:27] LABS: Basophils # (auto) 0 10 ^3/uL (0-0.2); Basophils % (auto) 0.4 % (0.0-2.0); Eosinophils # (auto) 0.1 10 ^3/uL (0-0.8); Eosinophils % (auto) 1.6 % (0.0-7.0); Hematocrit 34.7 % (41.0-53.0); Hemoglobin 11.7 g/dL (13.5-17.5); Lymphocytes # (auto) 0.6 10 ^3/uL (0.4-5.4); Lymphocytes % (auto) 7.6 % (10.0-50.0); Mean Corpuscular Hemoglobin 29.6 pg (28.0-32.0); Mean Corpuscular Hgb Conc. 33.8 g/dL (32.0-36.0); Mean Corpuscular Volume 87.4 fL (80.0-100.0); Monocytes # (auto) 0.3 10 ^3/uL (0-1.3); Monocytes % (auto) 4.7 % (0.0-12.0); Neutrophils # (auto) 6.3 10 ^3/uL (1.6-8.6); Neutrophils % (auto) 85.7 % (37.0-80.0); Red Blood Cells 3.97 10^6/uL (4.5-5.90); Red Cell Distribution Width 13.9 % (11.8-14.3); White Blood Cell 7.4 10^3/uL (4.4-10.8)
[2023-04-25 19:43] LABS: Alanine Aminotransferase 10 U/L (7-40); Albumin 4.3 g/dL (3.2-4.8); Alkaline Phosphatase 57 U/L (46-116); Anion Gap 7 (5-15); Aspartate Aminotransferase 12 U/L (13-40); BUN/Creatinine Ratio 18.5 (10.0-20.0); Bilirubin, Total 0.4 mg/dL (0.2-1.0); Blood Urea Nitrogen 30 mg/dL (9-23); Calcium 9.8 mg/dL (8.5-10.1); Carbon Dioxide 25 mmol/L (20-30); Chloride 102 mmol/L (98-107); Glucose 281 mg/dL (74-106); Potassium 4.4 mmol/L (3.5-5.1); Sodium 134 mmol/L (136-145); Total Protein 7.2 g/dL (5.7-8.2)
[2023-04-25 20:30] VITALS: PULSE 78; RESP 18; O2SAT 96
[2023-04-25 22:00] VITALS: BP 120/70; PULSE 78; RESP 16; TEMP 98.3; O2SAT 96
[2023-04-25] MEDS: InsuLIN REG 1unit/0.01ml Soln (100units/ml) SC SCH (22:32)
[2023-04-25] MEDS: GABAPENTIN 300 MG CAP PO SCH (22:38)
[2023-04-25] MEDS: METOPROLOL TARTRATE 25 MG TAB PO SCH (22:38)
[2023-04-25] MEDS: ACCU-CHEK COMFORT CURVE STRIP VI SCH (22:38)
[2023-04-26] MEDS: ceFAZolin 1GM/50ML 50 ML IV SCH (00:07)
[2023-04-26 05:00] VITALS: BP 114/60; PULSE 77; RESP 18; TEMP 98.1; O2SAT 100
[2023-04-26] MEDS: FLUoxetine HCL 10 MG CAP PO SCH (06:24)
[2023-04-26 06:45] LABS: Basophils # (auto) 0 10 ^3/uL (0-0.2); Basophils % (auto) 0.2 % (0.0-2.0); Eosinophils # (auto) 0.1 10 ^3/uL (0-0.8); Eosinophils % (auto) 1.6 % (0.0-7.0); Hematocrit 35.2 % (41.0-53.0); Hemoglobin 11.9 g/dL (13.5-17.5); Lymphocytes # (auto) 0.5 10 ^3/uL (0.4-5.4); Lymphocytes % (auto) 7.9 % (10.0-50.0); Mean Corpuscular Hemoglobin 29.9 pg (28.0-32.0); Mean Corpuscular Hgb Conc. 33.8 g/dL (32.0-36.0); Mean Corpuscular Volume 88.5 fL (80.0-100.0); Monocytes # (auto) 0.2 10 ^3/uL (0-1.3); Monocytes % (auto) 2.5 % (0.0-12.0); Neutrophils # (auto) 5.9 10 ^3/uL (1.6-8.6); Neutrophils % (auto) 87.8 % (37.0-80.0); Nucleated Red Blood Cells % 0.1 %; Red Blood Cells 3.97 10^6/uL (4.5-5.90); Red Cell Distribution Width 13.7 % (11.8-14.3); White Blood Cell 6.7 10^3/uL (4.4-10.8)
[2023-04-26 07:00] LABS: Alanine Aminotransferase 10 U/L (7-40); Alkaline Phosphatase 48 U/L (46-116); Anion Gap 7 (5-15); Aspartate Aminotransferase 17 U/L (13-40); BUN/Creatinine Ratio 15.7 (10.0-20.0); Bilirubin, Total 0.5 mg/dL (0.2-1.0); Blood Urea Nitrogen 21 mg/dL (9-23); Calcium 9.5 mg/dL (8.5-10.1); Carbon Dioxide 26 mmol/L (20-30); Chloride 103 mmol/L (98-107); Potassium 4.2 mmol/L (3.5-5.1); Sodium 136 mmol/L (136-145); Total Protein 6.9 g/dL (5.7-8.2)
[2023-04-26 07:16] LABS: Glucose 161 mg/dL (74-106)
[2023-04-26 08:00] VITALS: BP 124/64; PULSE 77; RESP 17; TEMP 98.2; O2SAT 97
[2023-04-26 09:06] VITALS: BP 124/64; PULSE 77; RESP 17; TEMP 98.2; O2SAT 97
[2023-04-26] MEDS ORDERED: LOSARTAN POTASSIUM 25 MG TAB PO SCH (10:00)
[2023-04-26] MEDS: LEVOTHYROXINE SODIUM 25 MCG TAB PO SCH (11:17)
[2023-04-26] MEDS: hydroCHLOROthiazide 25 MG TAB PO SCH (11:17)
[2023-04-26] MEDS: INSULIN LANTUS (GLARGINE) 1 /0.01ml (100units/ml) SC SCH (11:20)
[2023-04-26] MEDS: Fenofibrate 160 MG TABLETS PO SCH (11:22)
[2023-04-26] MEDS: SODIUM CHLORIDE 0.9% 1,000 ML IV SCH (11:22)
[2023-04-26 13:00] VITALS: BP 119/67; PULSE 80; RESP 19; TEMP 98.5; O2SAT 95
[2023-04-26] MEDS ORDERED: AUG875T PO (13:40)
[2023-04-26] MEDS: ACETAMINOPHEN 325 MG TAB PO PRN (13:58)
[2023-04-26 16:57] VITALS: BP 116/63; PULSE 74; RESP 21; TEMP 98.1; O2SAT 98
[2023-04-26 16:59] VITALS: BP 116/63; PULSE 74; RESP 21; TEMP 98.1; O2SAT 98
== END 2023-04-26 19:14 | disposition home or self-care (01) | DRG 603 ==
LOC: UNDOADMIN 17:15 → CENTRAL 17:15
PROVIDERS: ADMIT Internal Medicine; ATTEND Podiatrist
DX: L03.115 Cellulitis of right lower limb (principal); C34.90 Malignant neoplasm of unspecified part of unspecified bronchus or lung; E11.42 Type 2 diabetes mellitus with diabetic polyneuropathy; E78.5 Hyperlipidemia, unspecified; F32.A Depression, unspecified; E03.9 Hypothyroidism, unspecified; S91.301A Unspecified open wound, right foot, initial encounter; X58.XXXA Exposure to other specified factors, initial encounter; I10 Essential (primary) hypertension; Z95.5 Presence of coronary angioplasty implant and graft; Z95.1 Presence of aortocoronary bypass graft; Z83.3 Family history of diabetes mellitus; Z85.118 Personal history of other malignant neoplasm of bronchus and lung; Z79.4 Long term (current) use of insulin; Z79.899 Other long term (current) drug therapy; Y93.89 Activity, other specified; Y92.89 Other specified places as the place of occurrence of the external cause; Y99.8 Other external cause status
CPT/HCPCS: 36415; 73700; 80053; 82306; 82962; 85025; 87077; 87186; 87205; 93971; G0378; J1815

== ENCOUNTER → 2023-05-01 | Outpatient (CLI) | payer OTHER ==
[~2023-05-01] MED LIST changes: +AUG875T PO; +BENZ100C97 PO; +FENO160T PO; +FLUO40CA PO; +HYDR12.59 PO; +INSLANTI SC; +LEV25T PO; +LOS25T PO; +MET25T PO
[2023-05-01 11:39] LABS: Albumin 4.1 g/dL (3.2-4.8); Alkaline Phosphatase 60 U/L (46-116); Anion Gap 3 (5-15); Aspartate Aminotransferase 12 U/L (13-40); BUN/Creatinine Ratio 20.6 (10.0-20.0); Bilirubin, Total 0.3 mg/dL (0.2-1.0); Blood Urea Nitrogen 26 mg/dL (9-23); Calcium 9.7 mg/dL (8.5-10.1); Carbon Dioxide 27 mmol/L (20-30); Chloride 100 mmol/L (98-107); Potassium 5.2 mmol/L (3.5-5.1); Total Protein 6.6 g/dL (5.7-8.2)
[2023-05-01 11:42] LABS: Alanine Aminotransferase 9 U/L (7-40); Glucose 364 mg/dL (74-106); Sodium 130 mmol/L (136-145)
[2023-05-01 11:44] LABS: Basophils # (auto) 0 10 ^3/uL (0-0.2); Basophils % (auto) 0.1 % (0.0-2.0); Eosinophils # (auto) 0.2 10 ^3/uL (0-0.8); Eosinophils % (auto) 2.8 % (0.0-7.0); Hematocrit 34.6 % (41.0-53.0); Hemoglobin 11.5 g/dL (13.5-17.5); Lymphocytes # (auto) 0.7 10 ^3/uL (0.4-5.4); Lymphocytes % (auto) 11.3 % (10.0-50.0); Mean Corpuscular Hemoglobin 29.4 pg (28.0-32.0); Mean Corpuscular Hgb Conc. 33.2 g/dL (32.0-36.0); Mean Corpuscular Volume 88.6 fL (80.0-100.0); Monocytes # (auto) 0.5 10 ^3/uL (0-1.3); Monocytes % (auto) 8.8 % (0.0-12.0); Neutrophils # (auto) 4.8 10 ^3/uL (1.6-8.6); Nucleated Red Blood Cells % 0.1 %; Red Blood Cells 3.91 10^6/uL (4.5-5.90); Red Cell Distribution Width 13.5 % (11.8-14.3); White Blood Cell 6.2 10^3/uL (4.4-10.8)
== END | disposition home or self-care (01) ==
LOC: LAB 10:21
PROVIDERS: ATTEND Internal Medicine Hematology & Oncology
DX: C34.11 Malignant neoplasm of upper lobe, right bronchus or lung (principal); C79.51 Secondary malignant neoplasm of bone
CPT/HCPCS: 36415; 80053; 85025

== ENCOUNTER → 2023-05-08 | Outpatient (CLI) | payer OTHER ==
[2023-05-08 13:26] LABS: Basophils # (auto) 0 10 ^3/uL (0-0.2); Basophils % (auto) 0.5 % (0.0-2.0); Eosinophils # (auto) 0 10 ^3/uL (0-0.8); Eosinophils % (auto) 0.7 % (0.0-7.0); Hemoglobin 11.5 g/dL (13.5-17.5); Lymphocytes # (auto) 0.6 10 ^3/uL (0.4-5.4); Lymphocytes % (auto) 19.9 % (10.0-50.0); Mean Corpuscular Hemoglobin 30.4 pg (28.0-32.0); Mean Corpuscular Hgb Conc. 33.9 g/dL (32.0-36.0); Mean Corpuscular Volume 89.6 fL (80.0-100.0); Monocytes # (auto) 0.3 10 ^3/uL (0-1.3); Monocytes % (auto) 10.6 % (0.0-12.0); Neutrophils # (auto) 1.9 10 ^3/uL (1.6-8.6); Neutrophils % (auto) 68.3 % (37.0-80.0); Nucleated Red Blood Cells % 0.1 %; Red Cell Distribution Width 13.8 % (11.8-14.3); White Blood Cell 2.8 10^3/uL (4.4-10.8)
[2023-05-08 14:17] LABS: Alanine Aminotransferase 11 U/L (7-40); Albumin 4.1 g/dL (3.2-4.8); Alkaline Phosphatase 57 U/L (46-116); Anion Gap 4 (5-15); Aspartate Aminotransferase 16 U/L (13-40); BUN/Creatinine Ratio 19.3 (10.0-20.0); Bilirubin, Total 0.3 mg/dL (0.2-1.0); Blood Urea Nitrogen 23 mg/dL (9-23); Calcium 9.2 mg/dL (8.5-10.1); Carbon Dioxide 27 mmol/L (20-30); Chloride 102 mmol/L (98-107); Glucose 299 mg/dL (74-106); Potassium 4.5 mmol/L (3.5-5.1); Sodium 133 mmol/L (136-145)
== END | disposition home or self-care (01) ==
LOC: LAB 13:04
PROVIDERS: ATTEND Internal Medicine Hematology & Oncology
DX: C34.11 Malignant neoplasm of upper lobe, right bronchus or lung (principal); C79.51 Secondary malignant neoplasm of bone
CPT/HCPCS: 36415; 80053; 82378; 83615; 85025

== ENCOUNTER → 2023-05-11 | Outpatient (CLI) | payer OTHER ==
[2023-05-11 15:22] LABS: Chloride 99 mmol/L (98-107); Potassium 4.6 mmol/L (3.5-5.1); Sodium 131 mmol/L (136-145)
[2023-05-11 15:23] LABS: Anion Gap 6 (5-15); Calcium 9.1 mg/dL (8.5-10.1); Carbon Dioxide 26 mmol/L (20-30)
[2023-05-11 15:28] LABS: BUN/Creatinine Ratio 20.9 (10.0-20.0); Blood Urea Nitrogen 27 mg/dL (9-23)
[2023-05-11 15:32] LABS: Glucose 429 mg/dL (74-106)
== END | disposition home or self-care (01) ==
LOC: LAB 14:57
PROVIDERS: ATTEND Internal Medicine
DX: L03.115 Cellulitis of right lower limb (principal); E78.00 Pure hypercholesterolemia, unspecified
CPT/HCPCS: 36415; 80048

== ENCOUNTER → 2023-06-19 | Outpatient (CLI) | payer OTHER ==
[2023-06-19 13:48] LABS: Basophils # (auto) 0 10 ^3/uL (0-0.2); Basophils % (auto) 0.7 % (0.0-2.0); Eosinophils # (auto) 0 10 ^3/uL (0-0.8); Eosinophils % (auto) 0.5 % (0.0-7.0); Hematocrit 31.6 % (41.0-53.0); Hemoglobin 10.5 g/dL (13.5-17.5); Lymphocytes # (auto) 0.6 10 ^3/uL (0.4-5.4); Lymphocytes % (auto) 11.5 % (10.0-50.0); Mean Corpuscular Hemoglobin 29.9 pg (28.0-32.0); Mean Corpuscular Hgb Conc. 33.2 g/dL (32.0-36.0); Mean Corpuscular Volume 90.2 fL (80.0-100.0); Monocytes # (auto) 0.5 10 ^3/uL (0-1.3); Monocytes % (auto) 10.4 % (0.0-12.0); Neutrophils % (auto) 76.9 % (37.0-80.0); Nucleated Red Blood Cells % 0.3 %; Red Blood Cells 3.51 10^6/uL (4.5-5.90); Red Cell Distribution Width 15.3 % (11.8-14.3); White Blood Cell 5.2 10^3/uL (4.4-10.8)
[2023-06-19 14:30] LABS: Alanine Aminotransferase 18 U/L (7-40); Albumin 4.2 g/dL (3.2-4.8); Alkaline Phosphatase 63 U/L (46-116); Anion Gap 4 (5-15); Aspartate Aminotransferase 18 U/L (13-40); BUN/Creatinine Ratio 19.9 (10.0-20.0); Blood Urea Nitrogen 27 mg/dL (9-23); Calcium 10.2 mg/dL (8.7-10.4); Carbon Dioxide 27 mmol/L (20-30); Chloride 102 mmol/L (98-107); Glucose 258 mg/dL (74-106); Sodium 133 mmol/L (136-145)
[2023-06-19 14:31] LABS: Bilirubin, Total 0.3 mg/dL (0.2-1.0); Total Protein 7.2 g/dL (5.7-8.2)
== END | disposition home or self-care (01) ==
LOC: LAB 13:33
PROVIDERS: ATTEND Internal Medicine Hematology & Oncology
DX: C34.11 Malignant neoplasm of upper lobe, right bronchus or lung (principal); E11.621 Type 2 diabetes mellitus with foot ulcer
CPT/HCPCS: 36415; 80053; 85025

== ENCOUNTER → 2023-07-03 | Outpatient (CLI) | payer OTHER ==
[2023-07-03 14:51] LABS: Eosinophils # (auto) 0.1 10 ^3/uL (0-0.8); Neutrophils # (auto) 6.3 10 ^3/uL (1.6-8.6); White Blood Cell 7.9 10^3/uL (4.4-10.8)
[2023-07-03 14:53] LABS: Basophils # (auto) 0 10 ^3/uL (0-0.2); Basophils % (auto) 0.6 % (0.0-2.0); Eosinophils % (auto) 0.9 % (0.0-7.0); Hematocrit 30.3 % (41.0-53.0); Hemoglobin 10.1 g/dL (13.5-17.5); Lymphocytes # (auto) 0.7 10 ^3/uL (0.4-5.4); Lymphocytes % (auto) 8.6 % (10.0-50.0); Mean Corpuscular Hemoglobin 30.8 pg (28.0-32.0); Mean Corpuscular Hgb Conc. 33.3 g/dL (32.0-36.0); Mean Corpuscular Volume 92.7 fL (80.0-100.0); Monocytes # (auto) 0.8 10 ^3/uL (0-1.3); Monocytes % (auto) 9.9 % (0.0-12.0); Red Blood Cells 3.28 10^6/uL (4.5-5.90); Red Cell Distribution Width 18.6 % (11.8-14.3)
[2023-07-03 15:19] LABS: Alanine Aminotransferase 11 U/L (7-40); Alkaline Phosphatase 71 U/L (46-116); Anion Gap 6 (5-15); Aspartate Aminotransferase 18 U/L (13-40); Bilirubin, Total 0.3 mg/dL (0.2-1.0); Blood Urea Nitrogen 19 mg/dL (9-23); Calcium 9.3 mg/dL (8.5-10.1); Carbon Dioxide 25 mmol/L (20-30); Chloride 102 mmol/L (98-107); Glucose 320 mg/dL (74-106); Potassium 4.8 mmol/L (3.5-5.1); Sodium 133 mmol/L (136-145); Total Protein 6.9 g/dL (5.7-8.2)
== END | disposition home or self-care (01) ==
LOC: LAB 14:38
PROVIDERS: ATTEND Internal Medicine Hematology & Oncology
DX: C34.11 Malignant neoplasm of upper lobe, right bronchus or lung (principal); E11.621 Type 2 diabetes mellitus with foot ulcer
CPT/HCPCS: 36415; 80053; 85025

== ENCOUNTER → 2023-07-10 | Outpatient (CLI) | payer OTHER ==
[2023-07-10 14:48] LABS: Hematocrit 31.7 % (41.0-53.0); Hemoglobin 10.4 g/dL (13.5-17.5); Mean Corpuscular Hemoglobin 30.7 pg (28.0-32.0); Mean Corpuscular Hgb Conc. 32.9 g/dL (32.0-36.0); Mean Corpuscular Volume 93.1 fL (80.0-100.0); Red Cell Distribution Width 18.3 % (11.8-14.3); White Blood Cell 3.4 10^3/uL (4.4-10.8)
[2023-07-10 14:51] LABS: Basophils % (manual) 0 (0.0-2.0); Blast Cells 0; Eosinophils % (manual) 0 (0-7); Myelocytes % 0; Promyelocytes % 0; Reactive Lymphocytes 0
[2023-07-10 14:54] LABS: Alanine Aminotransferase 21 U/L (7-40); Alkaline Phosphatase 65 U/L (46-116); Anion Gap 6 (5-15); Aspartate Aminotransferase 25 U/L (13-40); BUN/Creatinine Ratio 18.7 (10.0-20.0); Blood Urea Nitrogen 23 mg/dL (9-23); Calcium 10.3 mg/dL (8.5-10.1); Carbon Dioxide 26 mmol/L (20-30); Chloride 100 mmol/L (98-107); Glucose 307 mg/dL (74-106); Potassium 4.4 mmol/L (3.5-5.1); Sodium 132 mmol/L (136-145)
[2023-07-10 14:55] LABS: Bilirubin, Total 0.3 mg/dL (0.2-1.0)
[2023-07-10 15:58] LABS: Band Neutrophils % (manual) 3; Large Platelets FEW; Lymphocytes % (manual) 25 (10.0-50.0); Metamyelocytes % 1; Monocytes % (manual) 12 (0-12); Platelet Estimate Increased
== END | disposition home or self-care (01) ==
LOC: LAB 13:52
PROVIDERS: ATTEND Internal Medicine Hematology & Oncology
DX: C34.11 Malignant neoplasm of upper lobe, right bronchus or lung (principal); E11.621 Type 2 diabetes mellitus with foot ulcer
CPT/HCPCS: 36415; 80053; 85007; 85027

== ENCOUNTER → 2023-07-18 | Outpatient (CLI) | payer OTHER ==
[2023-07-18 15:20] LABS: Hematocrit 31.3 % (41.0-53.0); Hemoglobin 10.6 g/dL (13.5-17.5); Mean Corpuscular Hemoglobin 31.9 pg (28.0-32.0); Mean Corpuscular Hgb Conc. 33.9 g/dL (32.0-36.0); Mean Corpuscular Volume 94.2 fL (80.0-100.0); Red Blood Cells 3.32 10^6/uL (4.5-5.90); Red Cell Distribution Width 17.7 % (11.8-14.3); White Blood Cell 4.6 10^3/uL (4.4-10.8)
[2023-07-18 15:21] LABS: Basophils % (manual) 0 (0.0-2.0); Blast Cells 0; Eosinophils % (manual) 0 (0-7); Metamyelocytes % 0; Myelocytes % 0; Promyelocytes % 0; Reactive Lymphocytes 0
[2023-07-18 15:39] LABS: Alanine Aminotransferase 14 U/L (7-40); Albumin 3.9 g/dL (3.2-4.8); Alkaline Phosphatase 78 U/L (46-116); Anion Gap 2 (5-15); Aspartate Aminotransferase 14 U/L (13-40); BUN/Creatinine Ratio 22.7 (10.0-20.0); Blood Urea Nitrogen 30 mg/dL (9-23); Calcium 10.3 mg/dL (8.7-10.4); Carbon Dioxide 28 mmol/L (20-30); Chloride 101 mmol/L (98-107); Potassium 4.7 mmol/L (3.5-5.1); Sodium 131 mmol/L (136-145)
[2023-07-18 15:40] LABS: Bilirubin, Total 0.3 mg/dL (0.2-1.0)
[2023-07-18 15:50] LABS: Glucose 401 mg/dL (74-106)
[2023-07-18 16:09] LABS: Band Neutrophils % (manual) 2; Lymphocytes % (manual) 28 (10.0-50.0); Monocytes % (manual) 8 (0-12)
[2023-07-18 16:10] LABS: Platelet Estimate Adequate
== END | disposition home or self-care (01) ==
LOC: LAB 14:42
PROVIDERS: ATTEND Internal Medicine Hematology & Oncology
DX: C34.11 Malignant neoplasm of upper lobe, right bronchus or lung (principal); E11.621 Type 2 diabetes mellitus with foot ulcer
CPT/HCPCS: 36415; 80053; 85007; 85027

== ENCOUNTER → 2023-07-31 | Outpatient (CLI) | payer OTHER ==
[2023-07-31 11:29] LABS: Basophils # (auto) 0 10 ^3/uL (0-0.2); Eosinophils # (auto) 0.1 10 ^3/uL (0-0.8); Eosinophils % (auto) 1.7 % (0.0-7.0); Hematocrit 28.3 % (41.0-53.0); Hemoglobin 9.3 g/dL (13.5-17.5); Lymphocytes # (auto) 0.4 10 ^3/uL (0.4-5.4); Lymphocytes % (auto) 10.7 % (10.0-50.0); Mean Corpuscular Hemoglobin 31.6 pg (28.0-32.0); Mean Corpuscular Hgb Conc. 32.9 g/dL (32.0-36.0); Mean Corpuscular Volume 95.9 fL (80.0-100.0); Monocytes # (auto) 0.2 10 ^3/uL (0-1.3); Monocytes % (auto) 4.3 % (0.0-12.0); Neutrophils % (auto) 82.3 % (37.0-80.0); Nucleated Red Blood Cells % 0.2 %; Red Blood Cells 2.95 10^6/uL (4.5-5.90); Red Cell Distribution Width 19.5 % (11.8-14.3); White Blood Cell 3.7 10^3/uL (4.4-10.8)
[2023-07-31 12:35] LABS: Alanine Aminotransferase 21 U/L (7-40); Albumin 3.7 g/dL (3.2-4.8); Alkaline Phosphatase 65 U/L (46-116); Anion Gap 5 (5-15); Aspartate Aminotransferase 27 U/L (13-40); BUN/Creatinine Ratio 16.3 (10.0-20.0); Blood Urea Nitrogen 22 mg/dL (9-23); Calcium 9.8 mg/dL (8.7-10.4); Carbon Dioxide 27 mmol/L (20-30); Chloride 99 mmol/L (98-107); Potassium 5.4 mmol/L (3.5-5.1); Sodium 131 mmol/L (136-145)
[2023-07-31 12:36] LABS: Bilirubin, Total 0.3 mg/dL (0.2-1.0); Total Protein 6.5 g/dL (5.7-8.2)
[2023-07-31 14:16] LABS: Glucose 407 mg/dL (74-106)
== END | disposition home or self-care (01) ==
LOC: LAB 11:00
PROVIDERS: ATTEND Internal Medicine Hematology & Oncology
DX: E11.621 Type 2 diabetes mellitus with foot ulcer (principal); C34.11 Malignant neoplasm of upper lobe, right bronchus or lung
CPT/HCPCS: 36415; 80053; 85025

== ENCOUNTER → 2023-08-15 | Outpatient (CLI) | payer OTHER ==
[2023-08-15 11:45] LABS: Basophils # (auto) 0 10 ^3/uL (0-0.2); Eosinophils # (auto) 0.1 10 ^3/uL (0-0.8); Hemoglobin 10.5 g/dL (13.5-17.5); Lymphocytes # (auto) 0.8 10 ^3/uL (0.4-5.4); Mean Corpuscular Hemoglobin 32.3 pg (28.0-32.0); Monocytes # (auto) 0.9 10 ^3/uL (0-1.3); Neutrophils # (auto) 4.6 10 ^3/uL (1.6-8.6)
[2023-08-15 11:47] LABS: Basophils % (auto) 0.6 % (0.0-2.0); Eosinophils % (auto) 1.5 % (0.0-7.0); Hematocrit 31.3 % (41.0-53.0); Lymphocytes % (auto) 12.4 % (10.0-50.0); Mean Corpuscular Hgb Conc. 33.5 g/dL (32.0-36.0); Mean Corpuscular Volume 96.7 fL (80.0-100.0); Monocytes % (auto) 13.5 % (0.0-12.0); Nucleated Red Blood Cells % 0.1 %; Red Blood Cells 3.24 10^6/uL (4.5-5.90); Red Cell Distribution Width 18.2 % (11.8-14.3); White Blood Cell 6.4 10^3/uL (4.4-10.8)
[2023-08-15 11:57] LABS: Alanine Aminotransferase 12 U/L (7-40); Alkaline Phosphatase 67 U/L (46-116); Anion Gap 1 (5-15); BUN/Creatinine Ratio 18.7 (10.0-20.0); Blood Urea Nitrogen 23 mg/dL (9-23); Calcium 9.2 mg/dL (8.5-10.1); Carbon Dioxide 26 mmol/L (20-30); Chloride 105 mmol/L (98-107); Glucose 363 mg/dL (74-106); Potassium 5.1 mmol/L (3.5-5.1); Sodium 132 mmol/L (136-145)
[2023-08-15 11:59] LABS: Aspartate Aminotransferase 14 U/L (13-40); Bilirubin, Total 0.3 mg/dL (0.2-1.0)
== END | disposition home or self-care (01) ==
LOC: LAB 10:52
PROVIDERS: ATTEND Internal Medicine Hematology & Oncology
DX: C34.11 Malignant neoplasm of upper lobe, right bronchus or lung (principal)
CPT/HCPCS: 36415; 80053; 85025

== ENCOUNTER → 2023-08-29 | Outpatient (CLI) | payer OTHER ==
[2023-08-29 11:29] LABS: Basophils # (auto) 0.1 10 ^3/uL (0-0.2); Basophils % (auto) 0.8 % (0.0-2.0); Eosinophils # (auto) 0.1 10 ^3/uL (0-0.8); Eosinophils % (auto) 2.1 % (0.0-7.0); Hematocrit 30.2 % (41.0-53.0); Hemoglobin 10.1 g/dL (13.5-17.5); Lymphocytes # (auto) 0.8 10 ^3/uL (0.4-5.4); Lymphocytes % (auto) 11.1 % (10.0-50.0); Mean Corpuscular Hgb Conc. 33.5 g/dL (32.0-36.0); Mean Corpuscular Volume 98.4 fL (80.0-100.0); Monocytes # (auto) 0.6 10 ^3/uL (0-1.3); Monocytes % (auto) 8.3 % (0.0-12.0); Neutrophils # (auto) 5.5 10 ^3/uL (1.6-8.6); Neutrophils % (auto) 77.7 % (37.0-80.0); Red Blood Cells 3.07 10^6/uL (4.5-5.90); Red Cell Distribution Width 18.1 % (11.8-14.3)
[2023-08-29 12:05] LABS: Alanine Aminotransferase 12 U/L (7-40); Albumin 3.9 g/dL (3.2-4.8); Alkaline Phosphatase 77 U/L (46-116); Anion Gap 4 (5-15); Aspartate Aminotransferase 12 U/L (13-40); BUN/Creatinine Ratio 21.9 (10.0-20.0); Blood Urea Nitrogen 37 mg/dL (9-23); Calcium 9.5 mg/dL (8.5-10.1); Carbon Dioxide 24 mmol/L (20-30); Chloride 106 mmol/L (98-107); Glucose 206 mg/dL (74-106); Sodium 134 mmol/L (136-145)
[2023-08-29 12:07] LABS: Bilirubin, Total 0.2 mg/dL (0.2-1.0); Total Protein 6.8 g/dL (5.7-8.2)
[2023-08-29 14:13] LABS: Potassium 5.7 mmol/L (3.5-5.1)
== END | disposition home or self-care (01) ==
LOC: LAB 11:04
PROVIDERS: ATTEND Internal Medicine Hematology & Oncology
DX: C34.11 Malignant neoplasm of upper lobe, right bronchus or lung (principal); C79.51 Secondary malignant neoplasm of bone
CPT/HCPCS: 36415; 80053; 82378; 83615; 85025

== ENCOUNTER → 2023-09-06 | Outpatient (CLI) | payer OTHER | END | disposition home or self-care (01) | LOC: LAB 17:00 | PROVIDERS: ATTEND Podiatrist | DX: E11.621 Type 2 diabetes mellitus with foot ulcer (principal) | CPT/HCPCS: 87075; 87205 ==

== ENCOUNTER → 2023-09-18 | Outpatient (CLI) | payer OTHER ==
[2023-09-18 13:33] LABS: Chloride 105 mmol/L (98-107); Potassium 4.5 mmol/L (3.5-5.1); Sodium 135 mmol/L (136-145)
[2023-09-18 13:34] LABS: Anion Gap 4 (5-15); Carbon Dioxide 26 mmol/L (20-30)
[2023-09-18 13:35] LABS: Calcium 9.9 mg/dL (8.7-10.4)
[2023-09-18 13:39] LABS: BUN/Creatinine Ratio 23.4 (10.0-20.0); Blood Urea Nitrogen 29 mg/dL (9-23); Glucose 207 mg/dL (74-106)
[2023-09-18 14:03] LABS: Erythrocyte Sedimentation Rate 69 mm/hr (0-20)
== END | disposition home or self-care (01) ==
LOC: LAB 13:09
PROVIDERS: ATTEND Internal Medicine
DX: E11.621 Type 2 diabetes mellitus with foot ulcer (principal); D64.9 Anemia, unspecified
CPT/HCPCS: 36415; 80048; 83036; 85652

== ENCOUNTER → 2023-09-27 | Outpatient (CLI) | payer OTHER ==
[2023-09-27 11:44] LABS: Basophils # (auto) 0 10 ^3/uL (0-0.2); Basophils % (auto) 0.4 % (0.0-2.0); Eosinophils # (auto) 0.2 10 ^3/uL (0-0.8); Eosinophils % (auto) 2.4 % (0.0-7.0); Hematocrit 35.5 % (41.0-53.0); Hemoglobin 11.9 g/dL (13.5-17.5); Lymphocytes # (auto) 1.2 10 ^3/uL (0.4-5.4); Lymphocytes % (auto) 13.2 % (10.0-50.0); Mean Corpuscular Hemoglobin 31.8 pg (28.0-32.0); Mean Corpuscular Hgb Conc. 33.6 g/dL (32.0-36.0); Mean Corpuscular Volume 94.6 fL (80.0-100.0); Monocytes # (auto) 0.6 10 ^3/uL (0-1.3); Monocytes % (auto) 6.8 % (0.0-12.0); Neutrophils # (auto) 7.1 10 ^3/uL (1.6-8.6); Neutrophils % (auto) 77.2 % (37.0-80.0); Nucleated Red Blood Cells % 0.1 %; Red Blood Cells 3.76 10^6/uL (4.5-5.90); Red Cell Distribution Width 15.1 % (11.8-14.3); White Blood Cell 9.2 10^3/uL (4.4-10.8)
[2023-09-27 12:48] LABS: Alanine Aminotransferase 11 U/L (7-40); Albumin 4.3 g/dL (3.2-4.8); Alkaline Phosphatase 85 U/L (46-116); Anion Gap 6 (5-15); Aspartate Aminotransferase 16 U/L (13-40); BUN/Creatinine Ratio 24.6 (10.0-20.0); Bilirubin, Total 0.2 mg/dL (0.2-1.0); Blood Urea Nitrogen 30 mg/dL (9-23); Calcium 10.2 mg/dL (8.7-10.4); Carbon Dioxide 27 mmol/L (20-30); Chloride 102 mmol/L (98-107); Glucose 136 mg/dL (74-106); Potassium 5.2 mmol/L (3.5-5.1); Sodium 135 mmol/L (136-145); Total Protein 7.4 g/dL (5.7-8.2)
== END | disposition home or self-care (01) ==
LOC: LAB 11:27
PROVIDERS: ATTEND Internal Medicine Hematology & Oncology
DX: C34.11 Malignant neoplasm of upper lobe, right bronchus or lung (principal); C79.51 Secondary malignant neoplasm of bone
CPT/HCPCS: 36415; 80053; 82378; 83615; 85025

== ENCOUNTER → 2023-10-03 | Outpatient (CLI) | payer OTHER | END | disposition home or self-care (01) | LOC: XYW 09:32 | PROVIDERS: ATTEND Student in an Organized Health Care Education/Training Program | DX: I51.89 Other ill-defined heart diseases (principal); I25.10 Atherosclerotic heart disease of native coronary artery without angina pectoris | CPT/HCPCS: 93306 ==

== ENCOUNTER → 2023-10-10 | Outpatient (CLI) | payer OTHER ==
[2023-10-10 15:50] LABS: Alanine Aminotransferase 12 U/L (7-40); Albumin 4.1 g/dL (3.2-4.8); Alkaline Phosphatase 79 U/L (46-116); Aspartate Aminotransferase 14 U/L (13-40); Bilirubin, Direct < 0.1 mg/dL (<0.3); Bilirubin, Total 0.2 mg/dL (0.2-1.0); Total Protein 6.8 g/dL (5.7-8.2)
== END | disposition home or self-care (01) ==
LOC: LAB 14:59
PROVIDERS: ATTEND Internal Medicine
DX: E78.5 Hyperlipidemia, unspecified (principal)
CPT/HCPCS: 36415; 80076

== ENCOUNTER → 2023-11-14 | Outpatient (CLI) | payer OTHER ==
[2023-11-14 11:55] LABS: Alanine Aminotransferase 13 U/L (7-40); Albumin 4.2 g/dL (3.2-4.8); Alkaline Phosphatase 55 U/L (46-116); Aspartate Aminotransferase 13 U/L (13-40); Bilirubin, Total 0.2 mg/dL (0.2-1.0); Total Protein 7.2 g/dL (5.7-8.2)
[2023-11-14 13:01] LABS: LDL Cholesterol 62 mg/dL (< 100); Triglycerides 85 mg/dL (< 150)
[2023-11-14 13:02] LABS: Bilirubin, Direct < 0.1 mg/dL (<0.3); Cholesterol 113 mg/dL (< 200)
[2023-11-14 13:03] LABS: HDL Cholesterol 36 mg/dL (40-59)
== END | disposition home or self-care (01) ==
LOC: LAB 11:00
PROVIDERS: ATTEND Internal Medicine
DX: E78.5 Hyperlipidemia, unspecified (principal)
CPT/HCPCS: 36415; 80061; 80076

== ENCOUNTER → 2023-11-29 | Outpatient (CLI) | payer OTHER ==
[2023-11-29 17:40] LABS: Creatinine, Urine 65.19 mg/dL (30.0-125.0)
== END | disposition home or self-care (01) ==
LOC: LAB 16:28
PROVIDERS: ATTEND Internal Medicine
DX: E11.9 Type 2 diabetes mellitus without complications (principal)
CPT/HCPCS: 36415; 82043; 82570

== ENCOUNTER 2024-03-26 12:10 | Inpatient (IN) | payer OTHER ==
[~2024-03-26] VITALS: Ht 203.2 cm; Wt 109.3 kg
--- NOTE | 2024-03-26 12:37 | ECG ---
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
[2024-03-26] MEDS: SODIUM CHLORIDE 0.9% 1,000 ML IV ONE (12:45)
--- NOTE | 2024-03-26 13:01 | DVH ---
CHEST RADIOGRAPH Indication: SOB Technique: Single frontal view of the chest was obtained COMPARISON: CXRP on DOS: 08/12/21, CHEST PORTABLE on DOS: 08/12/21 FINDINGS: Lines and Tubes: Median sternotomy Lungs: Right upper lobe airspace consolidation. Pleura: No effusion. No pneumothorax. Cardiomediastinal contours: Unremarkable Bones: Unremarkable IMPRESSION: Right upper lobe airspace consolidation
[2024-03-26 13:45] LABS: Basophils # (auto) 0.1 10 ^3/uL (0-0.2); Eosinophils # (auto) 0 10 ^3/uL (0-0.8); Eosinophils % (auto) 0.1 % (0.0-7.0); Hemoglobin 12.2 g/dL (13.5-17.5); Lymphocytes # (auto) 0.7 10 ^3/uL (0.4-5.4); Lymphocytes % (auto) 4.9 % (10.0-50.0); Mean Corpuscular Hemoglobin 28.9 pg (28.0-32.0); Red Blood Cells 4.21 10^6/uL (4.5-5.90)
[2024-03-26 13:46] LABS: Basophils % (auto) 0.5 % (0.0-2.0); Hematocrit 37.3 % (41.0-53.0); Mean Corpuscular Hgb Conc. 32.7 g/dL (32.0-36.0); Mean Corpuscular Volume 88.5 fL (80.0-100.0); Monocytes # (auto) 0.9 10 ^3/uL (0-1.3); Monocytes % (auto) 6.7 % (0.0-12.0); Neutrophils # (auto) 12.2 10 ^3/uL (1.6-8.6); Neutrophils % (auto) 87.8 % (37.0-80.0); Platelet Count (auto) 525 10^3/uL (140-450); Red Cell Distribution Width 14.9 % (11.8-14.3); White Blood Cell 13.9 10^3/uL (4.4-10.8)
[2024-03-26 14:04] LABS: Alanine Aminotransferase 11 U/L (7-40); Albumin 4.3 g/dL (3.2-4.8); Alkaline Phosphatase 74 U/L (46-116); Anion Gap 15 (5-15); Bilirubin, Total 0.4 mg/dL (0.2-1.0); Calcium 10.4 mg/dL (8.7-10.4); Carbon Dioxide 20 mmol/L (20-31); Potassium 4.8 mmol/L (3.5-5.1); Total Protein 7.1 g/dL (5.7-8.2)
[2024-03-26 14:11] LABS: Aspartate Aminotransferase 9 U/L (13-40); Blood Urea Nitrogen 31 mg/dL (9-23); Chloride 98 mmol/L (98-107); Glucose 371 mg/dL (74-106); Sodium 133 mmol/L (136-145)
--- NOTE | 2024-03-26 14:29 | ED.PDOC ---
HPI (NEURO) HPI Comments 73y M who presents to the ED via EMS for chief compaint of general weakness. Pt states he has history of lung cancer and states over the past few days, he has been having increased generalized weakness with associated nausea and vomiting. Pt states he has had limited appetite during this time period and states he has not been able to keep anything down. Pt normally ambulates and states the weakness has prevented from ambulating. Pt in the ED is otherwise alert and oriented x 4 and and able to answer all questions. Pt otherwise denies any other symptoms at this time. Chief Complaint: General Weakness Time Seen by MD: 14:28 Primary Care Provider: SHYANNE Reviewed Notes: Nurses Notes, Classified Copy Control Clerk Notes Information Source: Patient, Emergency Med Personnel Mode of Arrival: EMS Brought in by: EMS Past Medical History PAST MEDICAL HISTORY: CAD, Cancer, DM, HTN Past Medical History (Other): lung cancer Surgical History: CABG Family History Family History: Unknown Social History Smoker: Non-Smoker Alcohol: Denies ETOH Use Drugs: Denies Drug Use Constitutional: reports: fatigue, malaise, weakness; denies: chills, diaphoresis, fever, sweats, others EENTM: denies: blurred vision, double vision, ear bleeding, ear discharge, ear drainage, ear pain, ear ringing, eye pain, eye redness, hearing loss, mouth pain, mouth swelling, nasal discharge, nose bleeding, nose congestion, nose pain, photophobia, tearing, throat pain, throat swelling, voice changes, others Respiratory: denies: cough, hemoptysis, orthopnea, SOB at rest, shortness of breath, SOB with excertion, stridor, wheezing, others Cardiovascular: denies: chest pain, dizzy spells, diaphoresis, Dyspnea on exertion, edema, irregular heart beat, left arm pain, lightheadedness, palpitati ons, PND, syncope, others Gastrointestinal: reports: abdominal pain, nausea, vomiting; denies: abdomen distended, blood streaked bowels, constipated, diarrhea, dysphagia, difficulty swallowing, hematemesis, melena, poor appetite, poor fluid intake, rectal bleeding, rectal pain, others Genitourinary: denies: burning, dysuria, flank pain, frequency, hematuria, incontinence, penile discharge, penile sore, pain, testicle pain, testicle swelling, urgency, others Neurological: denies: dizziness, fainting, headache, left sided numbness, left sided weakness, numbness, paresthesia, pre-existing deficit, right sided numbness, right sided weakness, seizure, speech problems, tingling, tremors, weakness, others Musculoskeletal: denies: back pain, gout, joint pain, joint swelling, muscle pain, muscle stiffness, neck pain, others Integumetry: denies: bruises, change in color, change in hair/nails, dryness, laceration, lesions, lumps, rash, wounds, others Allergic/Immunocompromised: denies: Difficulty Healing, Frequent Infections, Hives, Itching, others Hematologic/Lymphatic: denies: anemia, blood clots, easy bleeding, easy bruising, swollen glands, others Endocrine: denies: excessive hunger, excessive sweating, excessive thirst, excessive urination, flushing, intolerance to cold, intolerance to heat, unexplained weight gain, unexplained weight loss, others Psychiatric: denies: anxiety, bipolar disorder, depression, hopeless, panic disorder, schizophrenia, sleepless, suicidal, others All Other Systems: Reviewed and Negative Physical Exam Exam Comments deconditioned, appears chronically ill General Appearance: Moderate Distress, Normal HEENT: Normal ENT Inspection, Pharynx Normal, TMs Normal Neck: Full Range of Motion, Non-Tender, Normal, Normal Inspection Respiratory: Decreased Breath Sounds, Respiratory Distress Cardiovascular: No Edema, No JVD, No Murmur, No Gallop, Normal Peripheral Pulses, Regular Rate/Rhythm Breast Exam: Deferred Gastrointestinal: No Organomegaly, Non Tender, No Pulsatile Mass, Normal Bowel Sounds, Soft Genitalia: Deferred Pelvic: Deferred Rectal: Deferred Extremities: No calf tenderness, Normal capillary refill, Normal inspection, Normal range of motion, Non-tender, No pedal edema Musculoskeletal : Apperance: Normal Neurologic: Alert, finnish rubber II-XII nml as Tested, No Motor Deficits, Normal Affect, Normal Mood, No Sensory Deficits Cerebellar Function: Normal Reflexes: Normal Skin: Dry, Normal Color, Warm Lymphatic: No Adenopathy Was a procedure done? Was a procedure done?: No Differential Diagnosis (SZ) General Weakness: Anemia, Dehydration, Electrolyte imbalance, Hypoglycemia, Hypotension, Hypovolemia, TIA, Vertigo: central, Vertigo: peripheral, Other (sepsis, UTI, PNA) X-Ray, Labs, Meds, VS Vital Signs Date Time Temp Pulse Resp B/P (MAP) Pulse Ox O2 Delivery O2 Flow Rate FiO2 03/26/24 13:48 Room Air* 0 21 03/26/24 13:47 97.8 107 15 154/88 (110) 98 97.8 03/26/24 12:32 112 03/26/24 12:22 98.2 110 17 146/77 (100) 98 Lab Test 03/26/24 15:20 03/26/24 14:15 03/26/24 13:20 Range/Units Influenza Type A Antigen Pending Influenza Type B Antigen Pending Troponin I High Sensitivity 23 23 </=54 ng/L White Blood Count 13.9 H 4.4-10.8 10^3/uL Red Blood Count 4.21 L 4.5-5.90 10^6/uL Hemoglobin 12.2 L 13.5-17.5 g/dL Hematocrit 37.3 L 41.0-53.0 % Mean Corpuscular Volume 88.5 80.0-100.0 fL Mean Corpuscular Hemoglobin 28.9 28.0-32.0 pg Mean Corpuscular Hemoglobin Concent 32.7 32.0-36.0 g/dL Red Cell Distribution Width 14.9 H 11.8-14.3 % Platelet Count 525 H 140-450 10^3/uL Mean Platelet Volume 7.5 6.9-10.8 fL Neutrophils (%) (Auto) 87.8 H 37.0-80.0 % Lymphocytes (%) (Auto) 4.9 L 10.0-50.0 % Monocytes (%) (Auto) 6.7 0.0-12.0 % Eosinophils (%) (Auto) 0.1 0.0-7.0 % Basophils (%) (Auto) 0.5 0.0-2.0 % Neutrophils # (Auto) 12.2 H 1.6-8.6 10 ^3/uL Lymphocytes # (Auto) 0.7 0.4-5.4 10 ^3/uL Monocytes # (Auto) 0.9 0-1.3 10 ^3/uL Eosinophils # (Auto) 0 0-0.8 10 ^3/uL Basophils # (Auto) 0.1 0-0.2 10 ^3/uL Nucleated Red Blood Cells 0.0 % Sodium Level 133 L 136-145 mmol/L Potassium Level 4.8 3.5-5.1 mmol/L Chloride Level 98 98-107 mmol/L Carbon Dioxide Level 20 20-31 mmol/L Anion Gap 15 5-15 Blood Urea Nitrogen 31 H 9-23 mg/dL Creatinine 1.41 H 0.700-1.30 mg/dL Glomerular Filtration Rate Calc 53 >90 mL/min BUN/Creatinine Ratio 22.0 H 10.0-20.0 Serum Glucose 371 H 74-106 mg/dL Lactic Acid Level 1.3 0.4-2.0 mmol/L Calcium Level 10.4 8.7-10.4 mg/dL Total Bilirubin 0.4 0.2-1.0 mg/dL Aspartate Amino Transferase (AST) 9 L 13-40 U/L Alanine Aminotransferase (ALT) 11 7-40 U/L Alkaline Phosphatase 74 46-116 U/L B-Type Natriuretic Peptide 279.94 0-100 pg/mL Total Protein 7.1 5.7-8.2 g/dL Albumin 4.3 3.2-4.8 g/dL Current Medications Medications (Trade) Dose Ordered Sig/Elizabeth Route Start Time Stop Time Status Last Admin Sodium Chloride 1,000 ml @ 1,000 mls/hr Q1H ONCE IV 03/26/24 12:45 03/26/24 13:44 DC 03/26/24 12:45 [place] [id number] Ph: [phone] DIAGNOSTIC IMAGING Diagnostic Imaging Report : [id number] Signed PATIENT: WHIT HYMAN ACCT: [id number] UNIT: [id number] : 1950 LOC: ER ROOM / BED: / AGE / SEX: 73 / M ADM STATUS: REG ER SERVICE [id number] ORDERING PHYSICIAN: OSWALDO LONG MD PROCEDURE(s): CXRP - CHEST PORTABLE REASON: SOB ORDER NUMBER(s): [id number], ACCESSION NUMBER(s): [id number] CHEST RADIOGRAPH Indication: SOB Technique: Single frontal view of the chest was obtained COMPARISON: CXRP on DOS: 08/12/21, CHEST PORTABLE on DOS: 08/12/21 FINDINGS: Lines and Tubes: Median sternotomy Lungs: Right upper lobe airspace consolidation. Pleura: No effusion. No pneumothorax. Cardiomediastinal contours: Unremarkable Bones: Unremarkable IMPRESSION: Right upper lobe airspace consolidation ATED BY: CLAUDE EMERY MD DICTATED DATE/TIME: 03/26/24 125 SIGNED BY: CLAUDE EMERY MD SIGNED DATE/TIME: 03/26/241258 CC: Time of 1ST Reevaluation: 15:00 Reevaluation 1ST: Unchanged Time of 2ND Reevaluation: 15:58 Reevaluation 2ND: Unchanged Patient Education/Counseling: Diagnosis, Treatment Family Education/Counseling: No Family Present Departure 1 Departure Time of Disposition: 15:58 Impression: Primary Impression: Respiratory failure with hypoxia Additional Impressions: Pneumonia Lung cancer Disposition: ADMITTED INPATIENT Condition: Guarded Discharged With: Self Critical Care Note Critical Care Time?: Yes (45 min-critical care time only) Critical care comment: Total critical care time: Approximately 36 minutes Due to a high probability of clinically significant, life threatening deterioration, the patient required my highest level of preparedness to intervene emergently and I personally spent this critical care time directly and personally managing the patient. This critical care time included obtaining a history; examining the patient; pulse oximetry; ordering and review of studies; arranging urgent treatment with development of a management plan; evaluation of patient's response to treatment; frequent reassessment; and, discussions with other providers. This critical care time was performed to assess and manage the high probability of imminent, life-threatening deterioration that could result in multi-organ failure. It was exclusive of separately billable procedures and treating other patients. Stability Stability form required: No Heart Score Heart Score: Heart Score Response (Comments) Value History Slightly Suspicious 0 EKG Repolarization Disturb 1 Age >65 2 Risk Factors 1 or 2 risk factors 1 Troponin Normal limit 0 Total 4 I personally scribed for OSWALDO LONG MD ([email or web address]) on 03/26/24 at 14:29. Electronically submitted by Dillon Ahn ([email or web address]). OSWALDO LONG MD Mar 26, 2024 14:29
[2024-03-26 16:02] LABS: Rapid Influenza A Negative (Negative); Rapid Influenza B Negative (Negative)
[2024-03-26] MEDS: cefTRIAXone 1GM/50ML D5W 50 ML IV ONE (16:07)
[2024-03-26] MEDS: AZITHROMYCIN 500MG/ 250ML 250 ML IV ONE (16:07)
[2024-03-26 19:30] VITALS: PULSE 105; RESP 17; O2SAT 98
[2024-03-26] MEDS ORDERED: DEXTROSE (50%) 50ML SYRG IV PRN (19:30)
[2024-03-26] MEDS ORDERED: ONDANSETRON HCL 4 MG/2 ML VIAL IV PRN (19:30)
[2024-03-26] MEDS ORDERED: ALBUTEROL SULF 2.5 MG/0.5ML(0.5%) NEB SOLN NEB PRN (19:30)
[2024-03-26] MEDS: MUPIROCIN 2% OINT 15gm or 22gm FOR MRSA NARES EACHNOSTRI SCH (20:38)
[2024-03-26 20:45] VITALS: BP 150/79; PULSE 104; RESP 18; TEMP 99; O2SAT 96
[2024-03-26] MEDS ORDERED: SILV1CRE98 (20:48)
[2024-03-26] MEDS ORDERED: ATOR20TA50 (20:48)
[2024-03-26] MEDS ORDERED: LEVO-177 PO (20:48)
[2024-03-26] MEDS ORDERED: INSU0.5M33 (20:48)
[2024-03-26] MEDS ORDERED: INSREGI SC (20:48)
[2024-03-26] MEDS ORDERED: ERGO1CAP12 PO (20:48)
[2024-03-26] MEDS: ACETAMINOPHEN 325 MG TAB PO PRN (21:55)
[2024-03-26] MEDS: GABAPENTIN 300 MG CAP PO SCH (21:55)
[2024-03-26] MEDS: METOPROLOL TARTRATE 25 MG TAB PO SCH (21:56)
[2024-03-26] MEDS: ATORVASTATIN 20 MG TAB PO SCH (21:56)
[2024-03-26] MEDS: ACCU-CHEK COMFORT CURVE STRIP VI SCH (23:55)
[2024-03-26] MEDS: InsuLIN REG 1unit/0.01ml Soln (100units/ml) SC SCH (23:56)
[2024-03-27] VITALS (10 sets, daily range): BP systolic 129–146; BP diastolic 56–76; PULSE 67–95; RESP 16–19; TEMP 97.5–99.6; O2SAT 91–98
--- NOTE | 2024-03-27 04:08 | DVHHP2 ---
History of Present Illness Reason for Visit: Shortness of breath History of Present Illness 73-year-old male presents for evaluation of shortness for breath. Patient presents with a two day history of worsening shortness for breath with associated generalized weakness and nausea. Patient does have a history of lung cancer. Denies chest pain or palpitations. No fever or chills. No other acute complaints reported. Past Medical History Diabetes mellitus, hypertension, CAD, lung cancer Past Surgical History CABG Family History Noncontributory Smoke: No ALCOHOL: none Drugs: None Lives: with Family Review of Systems Review of Systems Review of systems are currently negative otherwise addressed in HPI. Allergies: Coded Allergies: NO KNOWN ALLERGIES (Unverified , 08/11/20) Medications Current Medications Medications Dose Ordered Sig/Elizabeth Route Start Time Stop Time Status Last Admin Dose Admin Albuterol 2.5 mg Q6HPRN PRN NEB 03/26/24 19:30 Atorvastatin Calcium 20 mg HS PO 03/26/24 22:00 03/26/24 21:56 20 MG Fluoxetine HCl 40 mg DAILY PO 03/27/24 10:00 Gabapentin 600 mg BID PO 03/26/24 22:00 03/26/24 21:55 600 MG Hydrochlorothiazide 12.5 mg DAILY PO 03/27/24 10:00 Levothyroxine Sodium 88 mcg QAM@0600 PO 03/27/24 06:00 Metoprolol Tartrate 25 mg BID PO 03/26/24 22:00 03/26/24 21:56 25 MG Azithromycin 250 ml @ 125 mls/hr DAILY IV 03/27/24 10:00 Ceftriaxone Sodium 50 ml @ 100 mls/hr DAILY@09 IV 03/27/24 09:00 Diagnostic Test (Pha) 1 strip Q6HR 03/27/24 00:00 03/26/24 23:55 1 STRIP Insulin Human Regular Q6HR SC 03/27/24 00:00 03/26/24 23:56 8 UNITS Dextrose 50 ml UD PRN IV 03/26/24 19:30 Ondansetron HCl 4 mg Q4HP PRN IV 03/26/24 19:30 Enoxaparin Sodium 40 mg DAILY SC 03/27/24 10:00 Acetaminophen 650 mg Q6HP PRN PO 03/26/24 19:30 03/26/24 21:55 650 MG Exam Vital Signs Vital Signs Date Time Temp Pulse Resp B/P (MAP) Pulse Ox O2 Delivery O2 Flow Rate FiO2 03/27/24 01:00 98.5 81 18 131/76 (94) 95 98.5 03/27/24 01:00 2.0 21 03/26/24 19:30 Room Air* Exam Gen: 73-year-old male in mild distress Skin: Warm, dry, normal color and texture, no rash. HEENT: Normocephalic atraumatic, mucous membranes moist and pink. Neck: Cervical and supraclavicular nodes normal without enlargement, trachea is midline, thyroid gland is normal without masses. Pulmonary: Diminished breath sounds bilaterally Cardiac: Regular rate and rhythm. No murmur Abdomen: Soft, nontender, nondistended, bowel sounds present all 4 quadrants, no guarding, no rigidity, no organomegaly. Extremities: No cyanosis, clubbing, no edema Neuro: Cranial nerves II through XII grossly intact, normal affect and speech, no focal motor deficits. Labs/Xrays ORDERING PHYSICIAN: OSWALDO LONG MD PROCEDURE(s): CXRP - CHEST PORTABLE REASON: SOB ORDER NUMBER(s): [id number], ACCESSION NUMBER(s): [id number] CHEST RADIOGRAPH Indication: SOB Technique: Single frontal view of the chest was obtained COMPARISON: CXRP on DOS: 08/12/21, CHEST PORTABLE on DOS: 08/12/21 FINDINGS: Lines and Tubes: Median sternotomy Lungs: Right upper lobe airspace consolidation. Pleura: No effusion. No pneumothorax. Cardiomediastinal contours: Unremarkable Bones: Unremarkable IMPRESSION: Right upper lobe airspace consolidation Labs Test 03/26/24 15:20 03/26/24 14:15 03/26/24 13:20 Range/Units Influenza Type A Antigen Negative Negative Influenza Type B Antigen Negative Negative Troponin I High Sensitivity 23 </=54 ng/L White Blood Count 13.9 H 4.4-10.8 10^3/uL Red Blood Count 4.21 L 4.5-5.90 10^6/uL Hemoglobin 12.2 L 13.5-17.5 g/dL Hematocrit 37.3 L 41.0-53.0 % Mean Corpuscular Volume 88.5 80.0-100.0 fL Mean Corpuscular Hemoglobin 28.9 28.0-32.0 pg Mean Corpuscular Hemoglobin Concent 32.7 32.0-36.0 g/dL Red Cell Distribution Width 14.9 H 11.8-14.3 % Platelet Count 525 H 140-450 10^3/uL Mean Platelet Volume 7.5 6.9-10.8 fL Neutrophils (%) (Auto) 87.8 H 37.0-80.0 % Lymphocytes (%) (Auto) 4.9 L 10.0-50.0 % Monocytes (%) (Auto) 6.7 0.0-12.0 % Eosinophils (%) (Auto) 0.1 0.0-7.0 % Basophils (%) (Auto) 0.5 0.0-2.0 % Neutrophils # (Auto) 12.2 H 1.6-8.6 10 ^3/uL Lymphocytes # (Auto) 0.7 0.4-5.4 10 ^3/uL Monocytes # (Auto) 0.9 0-1.3 10 ^3/uL Eosinophils # (Auto) 0 0-0.8 10 ^3/uL Basophils # (Auto) 0.1 0-0.2 10 ^3/uL Nucleated Red Blood Cells 0.0 % Sodium Level 133 L 136-145 mmol/L Potassium Level 4.8 3.5-5.1 mmol/L Chloride Level 98 98-107 mmol/L Carbon Dioxide Level 20 20-31 mmol/L Anion Gap 15 5-15 Blood Urea Nitrogen 31 H 9-23 mg/dL Creatinine 1.41 H 0.700-1.30 mg/dL Glomerular Filtration Rate Calc 53 >90 mL/min BUN/Creatinine Ratio 22.0 H 10.0-20.0 Serum Glucose 371 H 74-106 mg/dL Lactic Acid Level 1.3 0.4-2.0 mmol/L Calcium Level 10.4 8.7-10.4 mg/dL Total Bilirubin 0.4 0.2-1.0 mg/dL Aspartate Amino Transferase (AST) 9 L 13-40 U/L Alanine Aminotransferase (ALT) 11 7-40 U/L Alkaline Phosphatase 74 46-116 U/L B-Type Natriuretic Peptide 279.94 0-100 pg/mL Total Protein 7.1 5.7-8.2 g/dL Albumin 4.3 3.2-4.8 g/dL Assessment/Plan Assessment/Plan Assessment Community-acquired pneumonia Diabetes mellitus Hypertension Lung cancer Plan Admit the patient to Med surge to the hospitalist Rocephin/azithromycin Med nebs Resume home medications Continue treatment per orders. Plan discussed with: Patient My Orders Orders - DEXTER VALENZUELA Procedure Category Date Status Time Albuterol Medneb PHA 03/26/24 In Process (Ventolin Medneb) 19:30 Atorvastatin (Lipitor) PHA 03/26/24 In Process 22:00 Fluoxetine Capsule PHA 03/27/24 In Process (Prozac Capsule) 10:00 Gabapentin Capsule PHA 03/26/24 In Process (Neurontin Capsule) 22:00 Hydrochlorothiazide PHA 03/27/24 In Process Tablet (Hydrochlorot 10:00 Levothyroxine Tablet PHA 03/27/24 In Process (Synthroid Tablet) 06:00 Metoprolol Tartrate PHA 03/26/24 In Process Tablet (Lopressor Ta 22:00 Azithromycin 500mg/ PHA 03/27/24 In Process 250ml (Zithromax 50 10:00 Ceftriaxone 1gm/50ml PHA 03/27/24 In Process D5w (Rocephin) 09:00 Consistent DIET 03/27/24 Transmitted Carb(Ccho)Diabetes Breakfast Basic Metabolic Panel LAB 03/27/24 Logged 04:00 Glucose Blood PHA 03/27/24 In Process (Accu-Chek Comfort 00:00 Insulin R (Human) PHA 03/27/24 In Process (Insulin R) 00:00 Dextrose 50% Syringe PHA 03/26/24 In Process 19:30 Admit ADMIT 03/26/24 Transmitted 19:18 Ondansetron Hcl PHA 03/26/24 In Process (Zofran) 19:30 Complete Blood Count LAB 03/27/24 Logged 04:00 Condition: Stable BHARTI 03/26/24 In Process 19:18 Acetaminophen Tablet PHA 03/26/24 In Process (Tylenol Tablet) 19:30 Bedrest With Bathroom BHARTI 03/26/24 In Process Privileg 19:18 Enoxaparin Sodium PHA 03/27/24 In Process (Lovenox) 10:00 Date of Service: Mar 26, 2024 Billing Provider: DEXTER VALENZUELA Common Visit Codes: [id number] INP/OBS CARE (HIGH) DEXTER VALENZUELA [facility] Mar 27, 2024 04:08
[2024-03-27] MEDS: LEVOTHYROXINE SODIUM 88 MCG TAB PO SCH (05:24)
[2024-03-27] MEDS: SODIUM CHLORIDE 0.9% 500 ML IV ONE (05:25)
[2024-03-27 07:31] LABS: Basophils # (auto) 0 10 ^3/uL (0-0.2); Eosinophils # (auto) 0 10 ^3/uL (0-0.8); Eosinophils % (auto) 0.1 % (0.0-7.0); Monocytes # (auto) 1.4 10 ^3/uL (0-1.3); Red Cell Distribution Width 14.8 % (11.8-14.3)
[2024-03-27 07:33] LABS: Basophils % (auto) 0.2 % (0.0-2.0); Hematocrit 33.9 % (41.0-53.0); Hemoglobin 11.1 g/dL (13.5-17.5); Lymphocytes # (auto) 0.7 10 ^3/uL (0.4-5.4); Lymphocytes % (auto) 5.2 % (10.0-50.0); Mean Corpuscular Hemoglobin 28.9 pg (28.0-32.0); Mean Corpuscular Hgb Conc. 32.7 g/dL (32.0-36.0); Mean Corpuscular Volume 88.3 fL (80.0-100.0); Monocytes % (auto) 9.7 % (0.0-12.0); Neutrophils # (auto) 11.9 10 ^3/uL (1.6-8.6); Neutrophils % (auto) 84.8 % (37.0-80.0); Platelet Count (auto) 494 10^3/uL (140-450); Red Blood Cells 3.83 10^6/uL (4.5-5.90); White Blood Cell 14.1 10^3/uL (4.4-10.8)
[2024-03-27 07:36] LABS: Chloride 101 mmol/L (98-107); Potassium 4.2 mmol/L (3.5-5.1)
[2024-03-27 07:37] LABS: Anion Gap 10 (5-15); Carbon Dioxide 24 mmol/L (20-31)
[2024-03-27 07:42] LABS: BUN/Creatinine Ratio 24.1 (10.0-20.0)
[2024-03-27 07:46] LABS: Blood Urea Nitrogen 28 mg/dL (9-23); Calcium 10.5 mg/dL (8.7-10.4); Glucose 276 mg/dL (74-106); Sodium 135 mmol/L (136-145)
[2024-03-27] MEDS: FLUoxetine HCL 20 MG CAP PO SCH (08:57)
[2024-03-27] MEDS: hydroCHLOROthiazide 25 MG TAB PO SCH (08:58)
[2024-03-27] MEDS: ENOXAPARIN SOD 40 MG/0.4 ML SYRINGE SC SCH (08:58)
[2024-03-27] MEDS: cefTRIAXone 1GM/50ML D5W 50 ML IV SCH (09:12)
[2024-03-27] MEDS: AZITHROMYCIN 500MG/ 250ML 250 ML IV SCH (10:20)
--- NOTE | 2024-03-27 15:28 | DVHPN2 ---
Subjective Patient continues to report having generalized weakness Reviewed: Care Plan, H&P, Labs, Medications Changes from previous H/P or p: No Changes General: Per HPI Objective Vitals Vital Signs Date Time Temp Pulse Resp B/P (MAP) Pulse Ox O2 Delivery O2 Flow Rate FiO2 03/27/24 13:00 98.4 80 19 130/70 (90) 92 98.4 03/27/24 08:15 Room Air* 0 21 Intake/Output Intake and Output 03/27/24 07:00 Intake Total 1600 ml Output Total 750 ml Balance 850 ml Intake Oral 300 ml IV Total 1300 ml Output Urine Total 750 ml # Bowel Movements 1 General Appearance: Alert, Oriented X3, Cooperative, mild distress HEENT: Atraumatic, PERRLA Lungs: Clear to auscultation, Normal air movement Cardiovascular: Normal S1, Normal S2 Musculoskeletal: Normal sensory function, Normal motor function Neuro: Normal gait, Normal speech Skin: Wounds (See nurse notes and pictures) Psych/Mental Status: Mental status NL, Mood NL Medications Current Medications Medications Dose Ordered Sig/Elizabeth Route Start Time Stop Time Status Last Admin Dose Admin Albuterol 2.5 mg Q6HPRN PRN NEB 03/26/24 19:30 Atorvastatin Calcium 20 mg HS PO 03/26/24 22:00 03/26/24 21:56 20 MG Fluoxetine HCl 40 mg DAILY PO 03/27/24 10:00 03/27/24 08:57 40 MG Gabapentin 600 mg BID PO 03/26/24 22:00 03/27/24 08:56 600 MG Hydrochlorothiazide 12.5 mg DAILY PO 03/27/24 10:00 03/27/24 08:58 12.5 MG Levothyroxine Sodium 88 mcg QAM@0600 PO 03/27/24 06:00 03/27/24 05:24 88 MCG Metoprolol Tartrate 25 mg BID PO 03/26/24 22:00 03/27/24 08:57 25 MG Azithromycin 250 ml @ 125 mls/hr DAILY IV 03/27/24 10:00 03/27/24 10:20 125 MLS/HR Ceftriaxone Sodium 50 ml @ 100 mls/hr DAILY@09 IV 03/27/24 09:00 03/27/24 09:12 100 MLS/HR Diagnostic Test (Pha) 1 strip Q6HR 03/27/24 00:00 03/27/24 12:00 1 STRIP Insulin Human Regular Q6HR SC 03/27/24 00:00 03/27/24 12:00 10 UNITS Dextrose 50 ml UD PRN IV 03/26/24 19:30 Ondansetron HCl 4 mg Q4HP PRN IV 03/26/24 19:30 Enoxaparin Sodium 40 mg DAILY SC 03/27/24 10:00 03/27/24 08:58 40 MG Acetaminophen 650 mg Q6HP PRN PO 03/26/24 19:30 03/26/24 21:55 650 MG Laboratory Results Laboratory Tests 03/27/24 06:52 Chemistry Test 03/27/24 06:52 Calcium Level 10.5 mg/dL (8.7-10.4) H Microbiology Microbiology Date/Time Source Procedure Growth Status 03/26/24 13:20 Blood Blood Culture - Preliminary NO GROWTH AFTER 24 HOURS OF INCUBATION. Resulted Labs and/or images reviewed: Labs reviewed by me, Image(s) reviewed by me Assessment/Plan Assessment/Plan Impression: -sepsis -lung cancer -rule out metastatic disease -diabetes mellitus -diabetic neuropathy -sacral wound -right heel wound Plan: -CT scan of chest, abdomen, pelvis to rule out metastatic disease -regular insulin sliding scale -IV hydration -wound care consultation -broaden IV antibiotic therapy to Zosyn and azithromycin -repeat labs in a.m. Total time spent with patient discussing and formulating plan of care: 35 minutes. This medical document was created using an electronic medical record system with [employer] dictation system. Although this document has been carefully reviewed, there may still be some phonetic and typographical errors. These areas are purely typographical due to imperfections of the software programs, and do not reflect any compromise in the patient's medical care. Plan discussed with: Patient, Other (RN) My Orders Orders - OSWALDO GONZALES [employer] Procedure Category Date Status Time Basic Metabolic Panel LAB 03/28/24 Verified 04:00 Chest Portable XY 03/28/24 Logged 04:00 Complete Blood Count LAB 03/28/24 Verified 04:[address] 03/27/24 Verified 15:20 Ct Ab Pel Wo Con-No CT 03/27/24 Verified Oral Or Iv 15:20 Lactate Dehydrogenase LAB 03/27/24 Verified 15:20 NS PHA 03/27/24 Verified 15:30 Pt Request For Service PT 03/27/24 Verified 15:20 Zosyn Extended PHA 03/27/24 Verified Infusion 22:00 Date of Service: Mar 27, 2024 Billing Provider: OSWALDO GONZALES NP Common Visit Codes: [id number] INP/OBS CARE(HIGH) OSWALDO GONZALES NP Mar 27, 2024 15:28
[2024-03-27] MEDS: SODIUM CHLORIDE 0.9% 1,000 ML IV SCH (15:30)
--- NOTE | 2024-03-27 16:23 | DVH ---
CT CHEST, ABDOMEN AND PELVIS WITHOUT CONTRAST CLINICAL HISTORY: Rule out metastatic cancer TECHNIQUE: Multiple contiguous axial images of the chest, abdomen and pelvis without intravenous cont rast. The images were reformatted degenerate coronal and sagittal reconstructions. All CT scans at this medical facility are performed using dose modulation techniques as appropriate t o a performed exam including the following:Automated exposure control was utilized; adjustment of the MA and/or KV according to patient size; and use of iterative reconstruction technique. Radiation Dose Information: CT Dose: CTDI volume is 19.89 mGy. Dose-length product is 1580.49 mGy*cm Comparison: CT chest 08/13/2021 FINDINGS: Evaluation of the chest, abdomen and pelvis is limited without intravenous contrast. There is right apical masslike soft tissue density with involvement of the right apical chest wall . There is cortical destruction and likely pathologic fractures of the right 1st, 2nd and 3rd lateral r ibs. There is periapical extension of the soft tissue mass into the upper lateral chest wall with eff acement of fat planes. The involved area measures approximately 5.9 x 8.7 by 5.5 cm. There is contraction of the right upper lobe with diffuse opacity which may represent airspace diseas e versus posttreatment changes. There are scattered areas of scarring versus atelectasis in the right lung. The left lung is clear. There is no pleural effusion. There is no evidence of pneumothorax. There are prominent appearing subcarinal lymph nodes measuring up to 1.5 cm. There is also a 1.3 cm r ight paratracheal lymph node. There is no axillary lymphadenopathy. The heart size within normal limits. There is no pericardial effusion. There are coronary artery ben cifications. There are several sub 5 mm calculi in the upper pole of the left kidney. There is no right renal calc ulus. There is no hydronephrosis. The liver, gallbladder, pancreas, adrenal glands, and spleen appear within normal limits. There is no gross evidence of abdominal lymphadenopathy. There is no free fluid or free air. The small and large bowel loops demonstrate normal caliber. There is moderate amount of stool in the colon. The abdominal aorta and IVC appear within normal limits. There is a Marcos catheter in the bladder which is mostly decompressed and contains fluid and air. Pel fracisco organ appears within normal limits. There is no evidence of a pelvic mass or lymphadenopathy. Th ere is no free fluid collection. There is fusion hardware at the L5-S1 level. IMPRESSION: 1. There is right apical lung masslike soft tissue density with involvement of the right apical chest wall. There is cortical destruction and likely pathologic fractures of the right 1st, 2nd and 3rd la teral ribs. There is periapical extension of the soft tissue mass into the upper lateral chest wall w ith effacement of fat planes. The involved area measures approximately 5.9 x 8.7 x 5.5 cm. Further ev aluation with PET-CT is recommended. 2. There is contraction of the right upper lobe lung with diffuse opacity which may represent airspac e disease versus posttreatment changes. There are scattered areas of scarring versus atelectasis in the right lung. 3. There are prominent subcarinal and paratracheal mediastinal lymph nodes. Metastatic lymphadenopat hy is not excluded. 4. Several sub 5 mm calculi in the upper pole of the left kidney. 5. Moderate amount of stool in the colon. HS:Y
[2024-03-27] MEDS: PIPERACILLIN-TAZOB 3.375GM 100 ML IV SCH (21:07)
[2024-03-28] VITALS (9 sets, daily range): BP systolic 120–160; BP diastolic 55–81; PULSE 78–89; RESP 16–20; TEMP 97.4–100.4; O2SAT 93–96
[2024-03-28 07:32] LABS: Basophils # (auto) 0 10 ^3/uL (0-0.2); Basophils % (auto) 0.1 % (0.0-2.0); Eosinophils # (auto) 0 10 ^3/uL (0-0.8); Eosinophils % (auto) 0.3 % (0.0-7.0); Hematocrit 32.6 % (41.0-53.0); Hemoglobin 10.6 g/dL (13.5-17.5); Lymphocytes # (auto) 0.9 10 ^3/uL (0.4-5.4); Lymphocytes % (auto) 6.1 % (10.0-50.0); Mean Corpuscular Hemoglobin 28.7 pg (28.0-32.0); Mean Corpuscular Hgb Conc. 32.4 g/dL (32.0-36.0); Mean Corpuscular Volume 88.5 fL (80.0-100.0); Monocytes # (auto) 1.2 10 ^3/uL (0-1.3); Monocytes % (auto) 8.7 % (0.0-12.0); Neutrophils # (auto) 12.1 10 ^3/uL (1.6-8.6); Neutrophils % (auto) 84.8 % (37.0-80.0); Platelet Count (auto) 490 10^3/uL (140-450); Red Blood Cells 3.69 10^6/uL (4.5-5.90); White Blood Cell 14.2 10^3/uL (4.4-10.8)
[2024-03-28 07:47] LABS: Calcium 9.3 mg/dL (8.7-10.4); Chloride 101 mmol/L (98-107); Potassium 4.5 mmol/L (3.5-5.1)
[2024-03-28 07:48] LABS: Anion Gap 10 (5-15); Carbon Dioxide 21 mmol/L (20-31); Sodium 132 mmol/L (136-145)
[2024-03-28 07:53] LABS: BUN/Creatinine Ratio 28.8 (10.0-20.0)
[2024-03-28 07:56] LABS: Blood Urea Nitrogen 34 mg/dL (9-23); Glucose 276 mg/dL (74-106)
[2024-03-28] MEDS ORDERED: DEXTROSE (50%) 50ML SYRG IV PRN (09:00)
--- NOTE | 2024-03-28 09:09 | DVH ---
CHEST RADIOGRAPH Indication: pna Technique: Single frontal view of the chest was obtained COMPARISON: XY CHEST PORTABLE on DOS: 03/26/24, CXRP on DOS: 08/12/21, CHEST PORTABLE on DOS: 08/12/21 FINDINGS: Lines and Tubes: None Lungs: Right upper lobe airspace consolidation. Pleura: No effusion. No pneumothorax. Cardiomediastinal contours: Unremarkable Bones: Unremarkable IMPRESSION: Right upper lobe airspace consolidation.
--- NOTE | 2024-03-28 09:36 | DVHPN2 ---
Subjective Patient continues to report having generalized weakness Reviewed: Care Plan, H&P, Labs, Medications Changes from previous H/P or p: No Changes General: Per HPI Objective Vitals Vital Signs Date Time Temp Pulse Resp B/P (MAP) Pulse Ox O2 Delivery O2 Flow Rate FiO2 03/28/24 08:21 93 Room Air 0.0 03/28/24 08:21 21 03/28/24 05:00 98.5 86 18 139/78 (98) 98.5 Intake/Output Intake and Output 03/28/24 07:00 Intake Total 1555 ml Output Total 800 ml Balance 755 ml Intake Oral 1255 ml IV Total 300 ml Output Urine Total 800 ml # Bowel Movements 4 General Appearance: Alert, Oriented X3, Cooperative, mild distress HEENT: Atraumatic, PERRLA Lungs: Clear to auscultation, Normal air movement Cardiovascular: Normal S1, Normal S2 Musculoskeletal: Normal sensory function, Normal motor function Neuro: Normal gait, Normal speech Skin: Wounds (See nurse notes and pictures) Psych/Mental Status: Mental status NL, Mood NL Medications Current Medications Medications Dose Ordered Sig/Elizabeth Route Start Time Stop Time Status Last Admin Dose Admin Albuterol 2.5 mg Q6HPRN PRN NEB 03/26/24 19:30 Atorvastatin Calcium 20 mg HS PO 03/26/24 22:00 03/27/24 21:09 20 MG Fluoxetine HCl 40 mg DAILY PO 03/27/24 10:00 03/27/24 08:57 40 MG Gabapentin 600 mg BID PO 03/26/24 22:00 03/27/24 21:07 600 MG Hydrochlorothiazide 12.5 mg DAILY PO 03/27/24 10:00 03/27/24 08:58 12.5 MG Levothyroxine Sodium 88 mcg QAM@0600 PO 03/27/24 06:00 03/28/24 05:12 88 MCG Metoprolol Tartrate 25 mg BID PO 03/26/24 22:00 03/27/24 21:10 25 MG Azithromycin 250 ml @ 125 mls/hr DAILY IV 03/27/24 10:00 03/27/24 10:20 125 MLS/HR Ondansetron HCl 4 mg Q4HP PRN IV 03/26/24 19:30 Enoxaparin Sodium 40 mg DAILY SC 03/27/24 10:00 03/27/24 08:58 40 MG Acetaminophen 650 mg Q6HP PRN PO 03/26/24 19:30 03/26/24 21:55 650 MG Sodium Chloride 1,000 ml @ 100 mls/hr Q10H IV 03/27/24 15:30 03/28/24 01:30 100 MLS/HR Piperacillin Sod/ Tazobactam Sod 100 ml @ 25 mls/hr Q8HR IV 03/27/24 22:00 03/28/24 05:12 25 MLS/HR Diagnostic Test (Pha) 1 strip ACHS 03/28/24 11:30 UNV Insulin Human Regular HS SC 03/28/24 22:00 UNV Insulin Human Regular AC SC 03/28/24 11:30 UNV Dextrose 50 ml UD PRN IV 03/28/24 09:00 UNV Docusate Sodium 100 mg BID PO 03/28/24 10:00 UNV Laboratory Results Laboratory Tests 03/28/24 06:56 Chemistry Test 03/28/24 06:56 Calcium Level 9.3 mg/dL (8.7-10.4) HgA1c, TSH Test 03/28/24 06:56 Thyroid Stimulating Hormone (TSH) 2.26 uIU/mL (0.55-4.78) Microbiology Microbiology Date/Time Source Procedure Growth Status 03/26/24 13:20 Blood Blood Culture - Preliminary NO GROWTH AFTER 24 HOURS OF INCUBATION. Resulted Labs and/or images reviewed: Labs reviewed by me, Image(s) reviewed by me Assessment/Plan Assessment/Plan Impression: -sepsis -lung cancer -rule out metastatic disease -diabetes mellitus -diabetic neuropathy -sacral wound -right heel wound Plan: Events: Patient continues to report having generalized weakness with no improvement. CT scan of the chest, abdomen and pelvis reviewed. Discussed with patient. -increase insulin coverage -physical therapy -bowel regimen -IV hydration -wound care consultation -continue azithromycin and Zosyn. -repeat labs in a.m. Total time spent with patient discussing and formulating plan of care: 35 minutes. This medical document was created using an electronic medical record system with [employer] system. Although this document has been carefully reviewed, there may still be some phonetic and typographical errors. These areas are purely typographical due to imperfections of the software programs, and do not reflect any compromise in the patient's medical care. Plan discussed with: Patient, Other (RN) My Orders Orders - OSWALDO GONZALES NP Procedure Category Date Status Time Chest Portable XY 03/28/24 Resulted 04:00 Sodium Chloride 0.9% PHA 03/27/24 In Process 15:30 Pt Request For Service PT 03/27/24 Logged 15:20 Piperacillin-Tazob PHA 03/27/24 In Process 3.375gm (Zosyn 3.375g 22:00 Chst Ab Pel Wo Con-No CT 03/27/24 Resulted Iv/Oral 15:20 Apply Z-Guard BHARTI 03/27/24 In Process 14:25 Foam Foot Cradle To ORDERS 03/27/24 Transmitted Right Foot 16:36 Glucose Blood PHA 03/28/24 Logged (Accu-Chek Comfort 11:30 Insulin R (Human) PHA 03/28/24 Logged (Insulin R) 22:00 Insulin R (Human) PHA 03/28/24 Logged (Insulin R) 11:30 Dextrose 50% Syringe PHA 03/28/24 Logged 09:00 Covid19 Antigen Erna LAB 03/28/24 Logged Docusate Sodium PHA 03/28/24 Logged Capsule (Colace 10:00 Basic Metabolic Panel LAB 03/29/24 Verified 04:00 Complete Blood Count LAB 03/29/24 Verified 04:00 Date of Service: Mar 28, 2024 Billing Provider: OSWALDO GONZALES NP Common Visit Codes: [id number] INP/OBS CARE(HIGH) OSWALDO GONZALES NP Mar 28, 2024 09:36
[2024-03-28] MEDS: DOCUSATE SOD 100 MG CAP PO SCH (10:22)
[2024-03-28] MEDS: ACCU-CHEK COMFORT CURVE STRIP VI SCH (11:37)
[2024-03-28] MEDS: InsuLIN REG 1unit/0.01ml Soln (100units/ml) SC SCH ×2 (12:14→21:48)
[2024-03-28 12:58] LABS: COVID19 ANTIGEN SOFIA FIA NEGATIVE (NEGATIVE)
[2024-03-29] VITALS (10 sets, daily range): BP systolic 135–156; BP diastolic 54–84; PULSE 69–92; RESP 16–20; TEMP 97.8–99; O2SAT 90–97
[2024-03-29 07:02] LABS: Basophils # (auto) 0 10 ^3/uL (0-0.2); Basophils % (auto) 0.3 % (0.0-2.0); Eosinophils # (auto) 0.1 10 ^3/uL (0-0.8); Eosinophils % (auto) 0.6 % (0.0-7.0); Hematocrit 33.2 % (41.0-53.0); Hemoglobin 11.1 g/dL (13.5-17.5); Lymphocytes # (auto) 0.8 10 ^3/uL (0.4-5.4); Lymphocytes % (auto) 5.1 % (10.0-50.0); Mean Corpuscular Hgb Conc. 33.5 g/dL (32.0-36.0); Mean Corpuscular Volume 86.7 fL (80.0-100.0); Monocytes % (auto) 6.4 % (0.0-12.0); Neutrophils # (auto) 13.5 10 ^3/uL (1.6-8.6); Neutrophils % (auto) 87.6 % (37.0-80.0); Platelet Count (auto) 517 10^3/uL (140-450); Red Blood Cells 3.82 10^6/uL (4.5-5.90); Red Cell Distribution Width 14.6 % (11.8-14.3); White Blood Cell 15.4 10^3/uL (4.4-10.8)
[2024-03-29 07:06] LABS: Anion Gap 10 (5-15); Carbon Dioxide 23 mmol/L (20-31); Chloride 100 mmol/L (98-107); Potassium 3.9 mmol/L (3.5-5.1); Sodium 133 mmol/L (136-145)
[2024-03-29 07:07] LABS: Calcium 9.8 mg/dL (8.7-10.4)
[2024-03-29 07:12] LABS: BUN/Creatinine Ratio 22.3 (10.0-20.0)
[2024-03-29 07:16] LABS: Blood Urea Nitrogen 23 mg/dL (9-23); Glucose 237 mg/dL (74-106)
[2024-03-29] MEDS ORDERED: DEXTROSE (50%) 50ML SYRG IV PRN (14:00)
--- NOTE | 2024-03-29 15:10 | DVHPN2 ---
Subjective Patient continues to report having generalized weakness Reviewed: Care Plan, H&P, Labs, Medications Changes from previous H/P or p: No Changes General: Per HPI Objective Vitals Vital Signs Date Time Temp Pulse Resp B/P (MAP) Pulse Ox O2 Delivery O2 Flow Rate FiO2 03/29/24 13:00 97.8 90 18 154/54 (87) 96 97.8 03/29/24 10:57 Room Air* 0 21 Intake/Output Intake and Output 03/29/24 07:00 Intake Total 1386 ml Output Total 1500 ml Balance -114 ml Intake Oral 1036 ml IV Total 350 ml Output Urine Total 1500 ml # Bowel Movements 3 General Appearance: Alert, Oriented X3, Cooperative, mild distress, Other (Generalized weakness) HEENT: Atraumatic, PERRLA Lungs: Clear to auscultation, Normal air movement Cardiovascular: Normal S1, Normal S2 Musculoskeletal: Normal sensory function, Normal motor function Neuro: Normal gait, Normal speech Skin: Wounds (See nurse notes and pictures) Psych/Mental Status: Mental status NL, Mood NL Medications Current Medications Medications Dose Ordered Sig/Elizabeth Route Start Time Stop Time Status Last Admin Dose Admin Albuterol 2.5 mg Q6HPRN PRN NEB 03/26/24 19:30 Atorvastatin Calcium 20 mg HS PO 03/26/24 22:00 03/28/24 22:00 20 MG Fluoxetine HCl 40 mg DAILY PO 03/27/24 10:00 03/29/24 10:00 40 MG Gabapentin 600 mg BID PO 03/26/24 22:00 03/29/24 10:01 600 MG Hydrochlorothiazide 12.5 mg DAILY PO 03/27/24 10:00 03/29/24 10:00 12.5 MG Levothyroxine Sodium 88 mcg QAM@0600 PO 03/27/24 06:00 03/29/24 05:33 88 MCG Metoprolol Tartrate 25 mg BID PO 03/26/24 22:00 03/29/24 10:01 25 MG Azithromycin 250 ml @ 125 mls/hr DAILY IV 03/27/24 10:00 03/29/24 10:14 125 MLS/HR Ondansetron HCl 4 mg Q4HP PRN IV 03/26/24 19:30 Enoxaparin Sodium 40 mg DAILY SC 03/27/24 10:00 03/29/24 10:01 40 MG Acetaminophen 650 mg Q6HP PRN PO 03/26/24 19:30 03/28/24 18:00 650 MG Piperacillin Sod/ Tazobactam Sod 100 ml @ 25 mls/hr Q8HR IV 03/27/24 22:00 03/29/24 05:33 25 MLS/HR Docusate Sodium 100 mg BID PO 03/28/24 10:00 03/29/24 10:01 100 MG Diagnostic Test (Pha) 1 strip ACHS 03/29/24 17:00 Insulin Human Regular AC SC 03/29/24 17:00 Insulin Human Regular HS SC 03/29/24 22:00 Dextrose 50 ml UD PRN IV 03/29/24 14:00 Laboratory Results Laboratory Tests 03/29/24 06:30 Chemistry Test 03/29/24 06:30 Calcium Level 9.8 mg/dL (8.7-10.4) Microbiology Microbiology Date/Time Source Procedure Growth Status 03/26/24 13:20 Blood Blood Culture - Preliminary NO GROWTH AFTER 72 HOURS OF INCUBATION. Resulted Labs and/or images reviewed: Labs reviewed by me, Image(s) reviewed by me Assessment/Plan Assessment/Plan Impression: -sepsis -lung cancer -rule out metastatic disease -diabetes mellitus -diabetic neuropathy -sacral wound -right heel wound Plan: Events: Discussed CT findings with patient's in detail. Given new lymphadenopathy, patient may have reoccurrence of lung CA with metastasis. -MRI of the brain -broaden antibiotic therapy to Zosyn and clindamycin -increase insulin coverage -physical therapy -bowel regimen -IV hydration -wound care consultation -repeat labs in a.m. Total time spent with patient discussing and formulating plan of care: 35 minutes. This medical document was created using an electronic medical record system with [employer] dictation system. Although this document has been carefully reviewed, there may still be some phonetic and typographical errors. These areas are purely typographical due to imperfections of the software programs, and do not reflect any compromise in the patient's medical care. Plan discussed with: Patient, Other (RN) My Orders Orders - OSWALDO GONZALES NP Procedure Category Date Status Time Glucose Blood PHA 03/29/24 In Process (Accu-Chek Comfort 17:00 Insulin R (Human) PHA 03/29/24 In Process (Insulin R) 17:00 Insulin R (Human) PHA 03/29/24 In Process (Insulin R) 22:00 Dextrose 50% Syringe PHA 03/29/24 In Process 14:00 Urine Bacterial SARAH 03/29/24 Logged Culture 14:07 Brain Head Wo Contrast MRI 03/29/24 Logged 14:07 Basic Metabolic Panel LAB 03/30/24 Verified 04:00 Erythrocyte LAB 03/30/24 Verified Sedimentation Rate 04:00 C-Reactive Protein LAB 03/30/24 Verified 04:00 Date of Service: Mar 29, 2024 Billing Provider: OSWALDO GONZALES NP Common Visit Codes: [id number] INP/OBS CARE(HIGH) OSWALDO GONZALES NP Mar 29, 2024 15:10
[2024-03-29] MEDS: GADOTERATE MEG 10 MMOL/20ml INJ (0.5MMOL/ml) IV ONE (15:35)
[2024-03-29] MEDS: ACCU-CHEK COMFORT CURVE STRIP VI SCH (17:00)
--- NOTE | 2024-03-29 17:36 | DVH ---
EXAM: MRI BRAIN HEAD WO W CONTRAST HISTORY: ALOC, METASTATIC DISEASE COMPARISON: BRAIN HEAD WO W CONTRAST on DOS: 08/13/21 TECHNIQUE: MRI was performed utilizing multiple appropriate imaging planes and pulse sequences prior and after uneventful administration of intravenous contrast. FINDINGS: SUPRATENTORIAL REGION: No evidence for acute ischemia or intracranial hemorrhage. Scattered ill-defi reyes FLAIR hyperintensities are noted within the bilateral periventricular region, mohr radiata and subcortical white matter. POSTERIOR FOSSA: Unremarkable. BRAINSTEM: Unremarkable. SELLAR/SUPRASELLAR REGION: Unremarkable. VENTRICLES, CISTERNS, SULCI: Age-appropriate. ORBITS: Unremarkable. PARANASAL SINUSES: Unremarkable. MASTOID AIR CELLS: Unremarkable. VASCULATURE: Unremarkable. BONES/ SOFT TISSUES: Unremarkable. OTHER: None. IMPRESSION: 1. No acute intracranial process or suspicious lesion identified. No evidence of metastasis. 2. Moderate chronic microvascular ischemic changes.
[2024-03-29] MEDS: MORPHINE SULFATE INJ 2 MG/ml SYRG IV PRN (17:49)
[2024-03-29] MEDS: InsuLIN REG 1unit/0.01ml Soln (100units/ml) SC SCH ×2 (17:52→21:51)
[2024-03-29] MEDS: CLINDAMYCIN 300MG IV 50 ML IV SCH (21:50)
[2024-03-30] VITALS (8 sets, daily range): BP systolic 137–163; BP diastolic 73–86; PULSE 81–90; RESP 18–19; TEMP 97.7–99.2; O2SAT 90–98
[2024-03-30 06:43] LABS: Anion Gap 10 (5-15); Calcium 9.8 mg/dL (8.7-10.4); Carbon Dioxide 23 mmol/L (20-31); Chloride 99 mmol/L (98-107); Potassium 3.8 mmol/L (3.5-5.1)
[2024-03-30 06:49] LABS: BUN/Creatinine Ratio 20.2 (10.0-20.0); Blood Urea Nitrogen 22 mg/dL (9-23)
[2024-03-30 06:51] LABS: Glucose 252 mg/dL (74-106); Sodium 132 mmol/L (136-145)
[2024-03-30 06:56] LABS: Erythrocyte Sedimentation Rate 100 mm/hr (0-20)
[2024-03-30 08:48] LABS: CRP High Sensitivity > 20.00 mg/dL (<1.0)
[2024-03-30] MEDS: FLORASTOR (S. BOULARDII) 250 MG CAP PO SCH (09:58)
[2024-03-30] MEDS ORDERED: DEXTROSE (50%) 50ML SYRG IV PRN (10:45)
[2024-03-30] MEDS: INSULIN LANTUS (GLARGINE) 1 /0.01ml (100units/ml) SC SCH (10:45)
--- NOTE | 2024-03-30 11:16 | DVHPN2 ---
Subjective Patient continues to report having generalized weakness Reviewed: Care Plan, H&P, Labs, Medications Changes from previous H/P or p: No Changes General: Per HPI Objective Vitals Vital Signs Date Time Temp Pulse Resp B/P (MAP) Pulse Ox O2 Delivery O2 Flow Rate FiO2 03/30/24 09:59 150/76 03/30/24 09:56 90 03/30/24 09:00 99.2 19 92 99.2 03/29/24 21:05 0.0 21 03/29/24 20:00 Room Air* Intake/Output Intake and Output 03/30/24 06:59 Intake Total 2279 ml Output Total 1050 ml Balance 1229 ml Intake Oral 1506 ml IV Total 773 ml Output Urine Total 1050 ml # Bowel Movements 4 General Appearance: Alert, Oriented X3, Cooperative, mild distress, Other (Generalized weakness) HEENT: Atraumatic, PERRLA Lungs: Clear to auscultation, Normal air movement Cardiovascular: Normal S1, Normal S2 Musculoskeletal: Normal sensory function, Normal motor function Neuro: Normal gait, Normal speech Skin: Dry, Intact, Wounds (See nurse notes and pictures) Psych/Mental Status: Mental status NL, Mood NL Medications Current Medications Medications Dose Ordered Sig/Elizabeth Route Start Time Stop Time Status Last Admin Dose Admin Albuterol 2.5 mg Q6HPRN PRN NEB 03/26/24 19:30 Atorvastatin Calcium 20 mg HS PO 03/26/24 22:00 03/29/24 21:50 20 MG Fluoxetine HCl 40 mg DAILY PO 03/27/24 10:00 03/30/24 09:56 40 MG Gabapentin 600 mg BID PO 03/26/24 22:00 03/30/24 09:59 600 MG Hydrochlorothiazide 12.5 mg DAILY PO 03/27/24 10:00 03/30/24 09:59 12.5 MG Levothyroxine Sodium 88 mcg QAM@0600 PO 03/27/24 06:00 03/30/24 05:24 88 MCG Metoprolol Tartrate 25 mg BID PO 03/26/24 22:00 03/30/24 09:56 25 MG Ondansetron HCl 4 mg Q4HP PRN IV 03/26/24 19:30 Enoxaparin Sodium 40 mg DAILY SC 03/27/24 10:00 03/30/24 10:01 40 MG Acetaminophen 650 mg Q6HP PRN PO 03/26/24 19:30 03/29/24 16:16 650 MG Piperacillin Sod/ Tazobactam Sod 100 ml @ 25 mls/hr Q8HR IV 03/27/24 22:00 03/30/24 05:24 25 MLS/HR Docusate Sodium 100 mg BID PO 03/28/24 10:00 03/29/24 21:50 100 MG Clindamycin Phosphate 50 ml @ 50 mls/hr Q8HR IV 03/29/24 22:00 03/30/24 05:24 50 MLS/HR Saccharomyces Boulardii 250 mg DAILY PO 03/30/24 10:00 03/30/24 09:58 250 MG Acetaminophen/ Hydrocodone Bitart 1 tab Q6HPRN PRN PO 03/29/24 17:00 Morphine Sulfate 1 mg Q4HP PRN IV 03/29/24 17:00 03/29/24 17:49 1 MG Insulin Glargine 10 units DAILY@1000 SC 03/30/24 10:45 Diagnostic Test (Pha) 1 strip IQ4HR 03/30/24 12:00 Insulin Human Regular IQ4HR SC 03/30/24 12:00 Dextrose 50 ml UD PRN IV 03/30/24 10:45 Laboratory Results Laboratory Tests 03/29/24 06:30 03/30/24 05:00 Chemistry Test 03/30/24 05:00 Calcium Level 9.8 mg/dL (8.7-10.4) Microbiology Microbiology Date/Time Source Procedure Growth Status 03/26/24 13:20 Blood Blood Culture - Preliminary NO GROWTH AFTER 72 HOURS OF INCUBATION. Resulted Labs and/or images reviewed: Labs reviewed by me, Image(s) reviewed by me Assessment/Plan Assessment/Plan Impression: -sepsis -lung cancer -rule out metastatic disease -diabetes mellitus -diabetic neuropathy -sacral wound -right heel wound Plan: Events: Patient states that he feels slightly better. ESR and CRP in extremely elevated. MRI of the brain unremarkable. Urine culture currently pending. -trial of Solu-Medrol -broaden antibiotic therapy to Zosyn and clindamycin -increase insulin coverage -physical therapy -bowel regimen -IV hydration -wound care consultation -repeat labs in a.m. Total time spent with patient discussing and formulating plan of care: 35 minutes. This medical document was created using an electronic medical record system with [employer] computerized dictation system. Although this document has been carefully reviewed, there may still be some phonetic and typographical errors. These areas are purely typographical due to imperfections of the software programs, and do not reflect any compromise in the patient's medical care. Plan discussed with: Patient, Other (RN) My Orders Orders - OSWALDO GONZALES NP Procedure Category Date Status Time Urine Bacterial SARAH 03/29/24 In Process Culture 14:07 Clindamycin 300mg Iv PHA 03/29/24 In Process (Cleocin Iv) 22:00 Florastor (S. PHA 03/30/24 In Process Boulardii) (Florastor) 10:00 Brain Head Wo W MRI 03/29/24 Resulted Contrast 14:07 Hydrocodone-Acet PHA 03/29/24 In Process 5/325mg Tab ([place] 17:00 Morphine Sulfate PHA 03/29/24 In Process Injection 17:00 Urinalysis LAB 03/30/24 Logged 10:36 Insulin Lantus PHA 03/30/24 In Process (Glargine) (Lantus) 10:45 Glucose Blood PHA 03/30/24 In Process (Accu-Chek Comfort 12:00 Insulin R (Human) PHA 03/30/24 In Process (Insulin R) 12:00 Dextrose 50% Syringe PHA 03/30/24 In Process 10:45 Respiratory Culture SARAH 03/30/24 Logged W/ Gs 10:41 Chest Xray 1 View XY 03/30/24 Logged 10:42 Date of Service: Mar 30, 2024 Billing Provider: OSWALDO GONZALES NP Common Visit Codes: [id number] INP/OBS CARE(HIGH) OSWALDO GONZALES NP Mar 30, 2024 11:16
--- NOTE | 2024-03-30 11:22 | DVHPN2 ---
Subjective Patient continues to report having generalized weakness Reviewed: Care Plan, H&P, Labs, Medications Changes from previous H/P or p: No Changes General: Per HPI Objective Vitals Vital Signs Date Time Temp Pulse Resp B/P (MAP) Pulse Ox O2 Delivery O2 Flow Rate FiO2 03/30/24 09:59 150/76 03/30/24 09:56 90 03/30/24 09:00 99.2 19 92 99.2 03/30/24 08:15 Room Air* 0 21 Intake/Output Intake and Output 03/30/24 07:00 Intake Total 2279 ml Output Total 1050 ml Balance 1229 ml Intake Oral 1506 ml IV Total 773 ml Output Urine Total 1050 ml # Bowel Movements 4 General Appearance: Alert, Oriented X3, Cooperative, mild distress, Other (Generalized weakness) HEENT: Atraumatic, PERRLA Lungs: Clear to auscultation, Normal air movement Cardiovascular: Normal S1, Normal S2 Musculoskeletal: Normal sensory function, Normal motor function Neuro: Normal gait, Normal speech Skin: Dry, Intact, Wounds (See nurse notes and pictures) Psych/Mental Status: Mental status NL, Mood NL Medications Current Medications Medications Dose Ordered Sig/Elizabeth Route Start Time Stop Time Status Last Admin Dose Admin Albuterol 2.5 mg Q6HPRN PRN NEB 03/26/24 19:30 Atorvastatin Calcium 20 mg HS PO 03/26/24 22:00 03/29/24 21:50 20 MG Fluoxetine HCl 40 mg DAILY PO 03/27/24 10:00 03/30/24 09:56 40 MG Gabapentin 600 mg BID PO 03/26/24 22:00 03/30/24 09:59 600 MG Hydrochlorothiazide 12.5 mg DAILY PO 03/27/24 10:00 03/30/24 09:59 12.5 MG Levothyroxine Sodium 88 mcg QAM@0600 PO 03/27/24 06:00 03/30/24 05:24 88 MCG Metoprolol Tartrate 25 mg BID PO 03/26/24 22:00 03/30/24 09:56 25 MG Ondansetron HCl 4 mg Q4HP PRN IV 03/26/24 19:30 Enoxaparin Sodium 40 mg DAILY SC 03/27/24 10:00 03/30/24 10:01 40 MG Acetaminophen 650 mg Q6HP PRN PO 03/26/24 19:30 03/29/24 16:16 650 MG Piperacillin Sod/ Tazobactam Sod 100 ml @ 25 mls/hr Q8HR IV 03/27/24 22:00 03/30/24 05:24 25 MLS/HR Docusate Sodium 100 mg BID PO 03/28/24 10:00 03/29/24 21:50 100 MG Clindamycin Phosphate 50 ml @ 50 mls/hr Q8HR IV 03/29/24 22:00 03/30/24 05:24 50 MLS/HR Saccharomyces Boulardii 250 mg DAILY PO 03/30/24 10:00 03/30/24 09:58 250 MG Acetaminophen/ Hydrocodone Bitart 1 tab Q6HPRN PRN PO 03/29/24 17:00 Morphine Sulfate 1 mg Q4HP PRN IV 03/29/24 17:00 03/29/24 17:49 1 MG Insulin Glargine 10 units DAILY@1000 SC 03/30/24 10:45 Diagnostic Test (Pha) 1 strip IQ4HR 03/30/24 12:00 Insulin Human Regular IQ4HR SC 03/30/24 12:00 Dextrose 50 ml UD PRN IV 03/30/24 10:45 Methylprednisolone Sodium Succinate 40 mg BID IV 03/30/24 11:15 UNV Laboratory Results Laboratory Tests 03/29/24 06:30 03/30/24 05:00 Chemistry Test 03/30/24 05:00 Calcium Level 9.8 mg/dL (8.7-10.4) Microbiology Microbiology Date/Time Source Procedure Growth Status 03/26/24 13:20 Blood Blood Culture - Preliminary NO GROWTH AFTER 72 HOURS OF INCUBATION. Resulted Labs and/or images reviewed: Labs reviewed by me, Image(s) reviewed by me Assessment/Plan Assessment/Plan Impression: -sepsis -lung cancer -rule out metastatic disease -diabetes mellitus -diabetic neuropathy -sacral wound -right heel wound Plan: Events: Patient states that he feels slightly better. ESR and CRP in extremely elevated. MRI of the brain unremarkable. Urine culture currently pending. -trial of Solu-Medrol -broaden antibiotic therapy to Zosyn and clindamycin -increase insulin coverage -physical therapy -bowel regimen -IV hydration -wound care consultation -repeat labs in a.m. -discussed updates with patient's , Angelique. All questions answered. Total time spent with patient and family regarding advance care plannin minutes. Total time spent with patient discussing and formulating plan of care: 35 minutes. This medical document was created using an electronic medical record system with [employer] dictation system. Although this document has been carefully reviewed, there may still be some phonetic and typographical errors. These areas are purely typographical due to imperfections of the software programs, and do not reflect any compromise in the patient's medical care. Plan discussed with: Patient, Spouse, Other (RN) My Orders Orders - OSWALDO GONZALES [employer]ACING [employer]IMMER Procedure Category Date Status Time Urine Bacterial SARAH 03/29/24 In Process Culture 14:07 Clindamycin 300mg Iv PHA 03/29/24 In Process (Cleocin Iv) 22:00 Florastor (S. PHA 03/30/24 In Process Boulardii) (Florastor) 10:00 Brain Head Wo W MRI 03/29/24 Resulted Contrast 14:07 Hydrocodone-Acet PHA 03/29/24 In Process 5/325mg Tab ([place] 17:00 Morphine Sulfate PHA 03/29/24 In Process Injection 17:00 Urinalysis LAB 03/30/24 Logged 10:36 Insulin Lantus PHA 03/30/24 In Process (Glargine) (Lantus) 10:45 Glucose Blood PHA 03/30/24 In Process (Accu-Chek Comfort 12:00 Insulin R (Human) PHA 03/30/24 In Process (Insulin R) 12:00 Dextrose 50% Syringe PHA 03/30/24 In Process 10:45 Respiratory Culture SARAH 03/30/24 Logged W/ Gs 10:41 Chest Xray 1 View XY 03/30/24 Logged 10:42 Methylprednisolone PHA 03/30/24 Logged Sod Succ (Solu Medrol 11:15 Complete Blood Count LAB 03/31/24 Verified 05:00 Complete Blood Count LAB 04/01/24 Verified 05:00 Complete Blood Count LAB 04/02/24 Verified 05:00 Basic Metabolic Panel LAB 03/31/24 Verified 05:00 Basic Metabolic Panel LAB 04/01/24 Verified 05:00 Basic Metabolic Panel LAB 04/02/24 Verified 05:00 Date of Service: Mar 30, 2024 Billing Provider: OSWALDO GONZALES [employer]IMMER Common Visit Codes: [id number] INP/OBS CARE(HIGH) Secondary Visit Codes: [id number] CARE PLAN 30 MINUTES OSWALDO GONZALES NP Mar 30, 2024 11:22
[2024-03-30] MEDS: ACCU-CHEK COMFORT CURVE STRIP VI SCH (11:38)
[2024-03-30] MEDS: InsuLIN REG 1unit/0.01ml Soln (100units/ml) SC SCH (11:38)
[2024-03-30] MEDS: HYDROcodone-ACET 5/325MG TAB PO PRN (11:41)
[2024-03-30] MEDS: methylPREDNISolone SOD SUCC 40 MG/ML VL IV SCH (12:47)
[2024-03-30 13:20] LABS: Urine Bacteria None Seen /hpf (None Seen)
[2024-03-30 14:06] LABS: Urine Blood 3+ /uL (Negative); Urine Clarity Turbid (Clear); Urine Color Yellow (Yellow); Urine Mucus FEW (None Seen); Urine Protein, UAD 2+ (Negative); Urine Specific Gravity 1.023 (1.001-1.035); Urine Squamous Epithelial Cell FEW /hpf (<5); Urine Urobilinogen Normal (Negative); Urine WBC 10 /HPF (0-3); Urine pH 5.5 (5.0-9.0)
[2024-03-31] VITALS (9 sets, daily range): BP systolic 139–168; BP diastolic 73–93; PULSE 77–84; RESP 18–19; TEMP 97.3–98.1; O2SAT 90–99
[2024-03-31 07:41] LABS: Basophils # (auto) 0 10 ^3/uL (0-0.2); Basophils % (auto) 0.1 % (0.0-2.0); Eosinophils # (auto) 0 10 ^3/uL (0-0.8); Hematocrit 31.6 % (41.0-53.0); Hemoglobin 10.4 g/dL (13.5-17.5); Lymphocytes # (auto) 0.5 10 ^3/uL (0.4-5.4); Lymphocytes % (auto) 3.6 % (10.0-50.0); Mean Corpuscular Hemoglobin 28.4 pg (28.0-32.0); Mean Corpuscular Hgb Conc. 32.9 g/dL (32.0-36.0); Mean Corpuscular Volume 86.4 fL (80.0-100.0); Monocytes # (auto) 0.7 10 ^3/uL (0-1.3); Monocytes % (auto) 5.1 % (0.0-12.0); Neutrophils # (auto) 12.6 10 ^3/uL (1.6-8.6); Neutrophils % (auto) 91.2 % (37.0-80.0); Platelet Count (auto) 563 10^3/uL (140-450); Red Blood Cells 3.66 10^6/uL (4.5-5.90); Red Cell Distribution Width 14.7 % (11.8-14.3); White Blood Cell 13.8 10^3/uL (4.4-10.8)
[2024-03-31 07:58] LABS: Anion Gap 9 (5-15); Carbon Dioxide 24 mmol/L (20-31); Chloride 99 mmol/L (98-107)
[2024-03-31 08:00] LABS: Calcium 9.4 mg/dL (8.7-10.4)
[2024-03-31 08:04] LABS: BUN/Creatinine Ratio 24.3 (10.0-20.0)
[2024-03-31 08:21] LABS: Blood Urea Nitrogen 26 mg/dL (9-23); Glucose 271 mg/dL (74-106); Potassium 3.3 mmol/L (3.5-5.1); Sodium 132 mmol/L (136-145)
[2024-03-31] MEDS: InsuLIN REG 1unit/0.01ml Soln (100units/ml) IV ONE (14:07)
--- NOTE | 2024-03-31 14:35 | DVHPN2 ---
Subjective Patient was states that he is feeling better compared to yesterday. Reviewed: Care Plan, H&P, Labs, Medications Changes from previous H/P or p: Changes General: Per HPI Objective Vitals Vital Signs Date Time Temp Pulse Resp B/P (MAP) Pulse Ox O2 Delivery O2 Flow Rate FiO2 03/31/24 13:00 97.9 81 19 142/73 (96) 90 97.9 03/31/24 08:56 Room Air 0.0 03/31/24 08:56 21 Intake/Output Intake and Output 03/31/24 07:00 Intake Total 1615 ml Output Total 1110 ml Balance 505 ml Intake Oral 1465 ml IV Total 150 ml Output Urine Total 1110 ml # Bowel Movements 3 General Appearance: Alert, Oriented X3, Cooperative, mild distress, Other (Generalized weakness) HEENT: Atraumatic, PERRLA Lungs: Clear to auscultation, Normal air movement Cardiovascular: Normal S1, Normal S2 Musculoskeletal: Normal sensory function, Normal motor function Neuro: Normal gait, Normal speech Skin: Dry, Intact, Wounds (See nurse notes and pictures) Psych/Mental Status: Mental status NL, Mood NL Medications Current Medications Medications Dose Ordered Sig/Elizabeth Route Start Time Stop Time Status Last Admin Dose Admin Albuterol 2.5 mg Q6HPRN PRN NEB 03/26/24 19:30 Atorvastatin Calcium 20 mg HS PO 03/26/24 22:00 03/30/24 20:57 20 MG Fluoxetine HCl 40 mg DAILY PO 03/27/24 10:00 03/31/24 10:04 40 MG Gabapentin 600 mg BID PO 03/26/24 22:00 03/31/24 10:04 600 MG Hydrochlorothiazide 12.5 mg DAILY PO 03/27/24 10:00 03/31/24 10:05 12.5 MG Levothyroxine Sodium 88 mcg QAM@0600 PO 03/27/24 06:00 03/31/24 05:30 88 MCG Metoprolol Tartrate 25 mg BID PO 03/26/24 22:00 03/31/24 10:05 25 MG Ondansetron HCl 4 mg Q4HP PRN IV 03/26/24 19:30 Enoxaparin Sodium 40 mg DAILY SC 03/27/24 10:00 03/31/24 10:05 40 MG Acetaminophen 650 mg Q6HP PRN PO 03/26/24 19:30 03/29/24 16:16 650 MG Piperacillin Sod/ Tazobactam Sod 100 ml @ 25 mls/hr Q8HR IV 03/27/24 22:00 03/31/24 05:29 25 MLS/HR Docusate Sodium 100 mg BID PO 03/28/24 10:00 03/31/24 10:04 100 MG Clindamycin Phosphate 50 ml @ 50 mls/hr Q8HR IV 03/29/24 22:00 03/31/24 13:27 50 MLS/HR Saccharomyces Boulardii 250 mg DAILY PO 03/30/24 10:00 03/31/24 10:04 250 MG Acetaminophen/ Hydrocodone Bitart 1 tab Q6HPRN PRN PO 03/29/24 17:00 03/31/24 12:37 1 TAB Morphine Sulfate 1 mg Q4HP PRN IV 03/29/24 17:00 03/29/24 17:49 1 MG Diagnostic Test (Pha) 1 strip IQ4HR 03/30/24 12:00 03/31/24 12:04 1 STRIP Insulin Human Regular IQ4HR SC 03/30/24 12:00 03/31/24 12:04 16 UNITS Dextrose 50 ml UD PRN IV 03/30/24 10:45 Insulin Glargine 20 units DAILY@1000 SC 04/01/24 10:00 Methylprednisolone Sodium Succinate 40 mg DAILY IV 04/01/24 10:00 Losartan Potassium 25 mg DAILY PO 04/01/24 10:00 Laboratory Results Laboratory Tests 03/31/24 06:58 Chemistry Test 03/31/24 06:58 Calcium Level 9.4 mg/dL (8.7-10.4) Urinalysis Test 03/30/24 13:00 Urine Color Yellow (Yellow) Urine Clarity Turbid (Clear) H Urine pH 5.5 (5.0-9.0) Urine Specific [place] 1.023 (1.001-1.035) Urine Protein 2+ (Negative) H Urine Ketones Trace (Negative) Urine Blood 3+ /uL (Negative) H Urine Nitrite Negative (Negative) Urine Bilirubin Negative (Negative) Urine Urobilinogen Normal mg/dL (Negative) Urine Leukocyte Esterase Trace /uL (Negative) Urine RBC 105 /hpf (0 - 3) Urine Microscopic WBC 10 /HPF (0-3) H Urine Squamous Epithelial Cells Few /hpf (<5) Urine Bacteria None seen /hpf (None Seen) Urine Mucus Few (None Seen) Urine Glucose 1+ mg/dL (Normal) H Microbiology Microbiology Date/Time Source Procedure Growth Status 03/30/24 08:00 Urine - [place] Urine Culture - Preliminary Resulted 03/26/24 13:20 Blood Blood Culture - Final NO GROWTH AFTER 5 DAYS OF INCUBATION. Complete Labs and/or images reviewed: Labs reviewed by me, Image(s) reviewed by me Assessment/Plan Assessment/Plan Impression: -sepsis -lung cancer -rule out metastatic disease -diabetes mellitus -diabetic neuropathy -sacral wound -right heel wound Plan: Events: Patient clinically states he was better. White blood cell count improved. Increase insulin coverage. Long discussion made with patient was , Angelique. All questions answered. -trial of Solu-Medrol -broaden antibiotic therapy to Zosyn and clindamycin -increase insulin coverage -physical therapy -bowel regimen -IV hydration -wound care consultation -repeat labs in a.m. -MD planning with PCP regarding outpatient follow up for questionable reoccurrence of metastatic lung disease Total time spent with patient discussing and formulating plan of care: 35 minutes. This medical document was created using an electronic medical record system with [employer] dictation system. Although this document has been carefully reviewed, there may still be some phonetic and typographical errors. These areas are purely typographical due to imperfections of the software programs, and do not reflect any compromise in the patient's medical care. Plan discussed with: Patient, Other (RN) My Orders Orders - OSWALDO GONZALES NP Procedure Category Date Status Time Insulin Lantus PHA 04/01/24 In Process (Glargine) (Lantus) 10:00 Methylprednisolone PHA 2 In Process Sod Succ (Solu Medrol 10:00 Potassium Chloride PHA 03/31/24 In Process (Potassium Chloride). 12:00 Losartan Tablet PHA 04/01/24 In Process (Cozaar Tablet) 10:00 Date of Service: Mar 31, 2024 Billing Provider: OSWALDO GONZALES NP Common Visit Codes: [id number] INP/OBS CARE(HIGH) OSWALDO GONZALES NP Mar 31, 2024 14:35
[2024-03-31] MEDS: POTASSIUM CHLORIDE 40 MEQ, LIDOCAINE 1% (LOCAL ANESTH.) 4 ML in SODIUM CHL 0.9% 250 ML IV ONE (15:52)
[2024-03-31] MEDS: Juven Orange Powder PACKET 27.5gm PO SCH (21:17)
[2024-04-01] VITALS (11 sets, daily range): BP systolic 117–171; BP diastolic 73–84; PULSE 77–89; RESP 18–21; TEMP 97.6–98.7; O2SAT 93–97
[2024-04-01 06:52] LABS: Basophils # (auto) 0 10 ^3/uL (0-0.2); Eosinophils # (auto) 0 10 ^3/uL (0-0.8); Eosinophils % (auto) 0.1 % (0.0-7.0); Hemoglobin 10.7 g/dL (13.5-17.5)
[2024-04-01 06:54] LABS: Basophils % (auto) 0.1 % (0.0-2.0); Lymphocytes # (auto) 0.8 10 ^3/uL (0.4-5.4); Lymphocytes % (auto) 5.8 % (10.0-50.0); Mean Corpuscular Hemoglobin 29.3 pg (28.0-32.0); Mean Corpuscular Hgb Conc. 33.5 g/dL (32.0-36.0); Mean Corpuscular Volume 87.4 fL (80.0-100.0); Monocytes % (auto) 7.2 % (0.0-12.0); Neutrophils # (auto) 11.9 10 ^3/uL (1.6-8.6); Neutrophils % (auto) 86.8 % (37.0-80.0); Nucleated Red Blood Cells % 0.2 %; Platelet Count (auto) 605 10^3/uL (140-450); Red Blood Cells 3.66 10^6/uL (4.5-5.90); Red Cell Distribution Width 14.7 % (11.8-14.3); White Blood Cell 13.7 10^3/uL (4.4-10.8)
[2024-04-01 07:09] LABS: Calcium 9.4 mg/dL (8.7-10.4); Chloride 103 mmol/L (98-107); Potassium 3.5 mmol/L (3.5-5.1)
[2024-04-01 07:10] LABS: Carbon Dioxide 23 mmol/L (20-31)
[2024-04-01 07:15] LABS: Anion Gap 7 (5-15); Blood Urea Nitrogen 25 mg/dL (9-23); Glucose 252 mg/dL (74-106); Sodium 133 mmol/L (136-145)
[2024-04-01] MEDS: methylPREDNISolone SOD SUCC 40 MG/ML VL IV SCH (10:04)
[2024-04-01] MEDS: LOSARTAN POTASSIUM 25 MG TAB PO SCH (10:06)
[2024-04-01] MEDS: INSULIN LANTUS (GLARGINE) 1 /0.01ml (100units/ml) SC SCH ×2 (10:17→21:01)
[2024-04-01] MEDS: InsuLIN REG 1unit/0.01ml Soln (100units/ml) IV ONE (13:38)
--- NOTE | 2024-04-01 14:36 | DVHPN2 ---
Subjective Patient was states that he is feeling better compared to yesterday. Reviewed: Care Plan, H&P, Labs, Medications Changes from previous H/P or p: No Changes General: Per HPI Objective Vitals Vital Signs Date Time Temp Pulse Resp B/P (MAP) Pulse Ox O2 Delivery O2 Flow Rate FiO2 04/01/24 11:05 89 139/86 04/01/24 09:00 97.6 21 94 97.6 04/01/24 08:00 Room Air* 0 21 Intake/Output Intake and Output 04/01/24 07:00 Intake Total 1030 ml Output Total 2150 ml Balance -1120 ml Intake Oral 690 ml IV Total 340 ml Output Urine Total 2150 ml # Bowel Movements 2 General Appearance: Alert, Oriented X3, Cooperative, mild distress, Other (Generalized weakness) HEENT: Atraumatic, PERRLA Lungs: Clear to auscultation, Normal air movement Cardiovascular: Normal S1, Normal S2 Musculoskeletal: Normal sensory function, Normal motor function Neuro: Normal gait, Normal speech Skin: Dry, Intact, Wounds (See nurse notes and pictures) Psych/Mental Status: Mental status NL, Mood NL Medications Current Medications Medications Dose Ordered Sig/Elizabeth Route Start Time Stop Time Status Last Admin Dose Admin Albuterol 2.5 mg Q6HPRN PRN NEB 03/26/24 19:30 Cancel Atorvastatin Calcium 20 mg HS PO 03/26/24 22:00 03/31/24 21:06 20 MG Fluoxetine HCl 40 mg DAILY PO 03/27/24 10:00 04/01/24 10:05 40 MG Gabapentin 600 mg BID PO 03/26/24 22:00 04/01/24 10:04 600 MG Hydrochlorothiazide 12.5 mg DAILY PO 03/27/24 10:00 04/01/24 10:05 12.5 MG Levothyroxine Sodium 88 mcg QAM@0600 PO 03/27/24 06:00 04/01/24 05:20 88 MCG Metoprolol Tartrate 25 mg BID PO 03/26/24 22:00 04/01/24 10:05 25 MG Ondansetron HCl 4 mg Q4HP PRN IV 03/26/24 19:30 Enoxaparin Sodium 40 mg DAILY SC 03/27/24 10:00 04/01/24 10:07 40 MG Acetaminophen 650 mg Q6HP PRN PO 03/26/24 19:30 03/29/24 16:16 650 MG Piperacillin Sod/ Tazobactam Sod 100 ml @ 25 mls/hr Q8HR IV 03/27/24 22:00 04/01/24 05:19 25 MLS/HR Docusate Sodium 100 mg BID PO 03/28/24 10:00 04/01/24 10:05 100 MG Clindamycin Phosphate 50 ml @ 50 mls/hr Q8HR IV 03/29/24 22:00 04/01/24 05:19 50 MLS/HR Saccharomyces Boulardii 250 mg DAILY PO 03/30/24 10:00 04/01/24 10:06 250 MG Acetaminophen/ Hydrocodone Bitart 1 tab Q6HPRN PRN PO 03/29/24 17:00 04/01/24 02:58 1 TAB Morphine Sulfate 1 mg Q4HP PRN IV 03/29/24 17:00 03/29/24 17:49 1 MG Diagnostic Test (Pha) 1 strip IQ4HR 03/30/24 12:00 04/01/24 12:20 1 STRIP Insulin Human Regular IQ4HR SC 03/30/24 12:00 04/01/24 12:26 12 UNITS Dextrose 50 ml UD PRN IV 03/30/24 10:45 Methylprednisolone Sodium Succinate 40 mg DAILY IV 04/01/24 10:00 04/01/24 10:04 40 MG Losartan Potassium 25 mg DAILY PO 04/01/24 10:00 04/01/24 10:06 25 MG Enteral Nutritional Formula 27.5 gm BID PO 03/31/24 22:00 04/01/24 10:02 27.5 GM Insulin Glargine 20 units BID SC 04/01/24 22:00 Laboratory Results Laboratory Tests 04/01/24 06:08 Chemistry Test 04/01/24 06:08 Calcium Level 9.4 mg/dL (8.7-10.4) Urinalysis Test 03/30/24 13:00 Urine Color Yellow (Yellow) Urine Clarity Turbid (Clear) H Urine pH 5.5 (5.0-9.0) Urine Specific [place] 1.023 (1.001-1.035) Urine Protein 2+ (Negative) H Urine Ketones Trace (Negative) Urine Blood 3+ /uL (Negative) H Urine Nitrite Negative (Negative) Urine Bilirubin Negative (Negative) Urine Urobilinogen Normal mg/dL (Negative) Urine Leukocyte Esterase Trace /uL (Negative) Urine RBC 105 /hpf (0 - 3) Urine Microscopic WBC 10 /HPF (0-3) H Urine Squamous Epithelial Cells Few /hpf (<5) Urine Bacteria None seen /hpf (None Seen) Urine Mucus Few (None Seen) Urine Glucose 1+ mg/dL (Normal) H Microbiology Microbiology Date/Time Source Procedure Growth Status 03/30/24 08:00 Urine - [place] Urine Culture - Final Complete 03/26/24 13:20 Blood Blood Culture - Final NO GROWTH AFTER 5 DAYS OF INCUBATION. Complete Labs and/or images reviewed: Labs reviewed by me, Image(s) reviewed by me Assessment/Plan Assessment/Plan Impression: -sepsis -lung cancer -rule out metastatic disease -diabetes mellitus -diabetic neuropathy -sacral wound -right heel wound Plan: Events: Patient clinically states he was better. Patient was afebrile. White blood cell count 13.7 -decrease Solu-Medrol to 40 mg daily -antibiotic therapy to Zosyn and clindamycin -increase insulin coverage , q.4 aggressive scale. Increase Lantus to 20 units b.i.d. -physical therapy -bowel regimen -IV hydration -wound care consultation -repeat labs in a.m. -DC planning with PCP regarding outpatient follow up for questionable reoccurrence of metastatic lung disease Total time spent with patient discussing and formulating plan of care: 35 minutes. This medical document was created using an electronic medical record system with [employer] dictation system. Although this document has been carefully reviewed, there may still be some phonetic and typographical errors. These areas are purely typographical due to imperfections of the software programs, and do not reflect any compromise in the patient's medical care. Plan discussed with: Patient, Other (RN) My Orders Orders - OSWALDO GONZALES [employer]GRAM [employer]NAGER [employer]SPORTATION Procedure Category Date Status Time Notify Provider NOTICE 03/31/24 Transmitted Malnutrition 15:20 Nutritional NOURISH 03/31/24 Transmitted Supplements 15:20 Nutritional PHA 03/31/24 In Process Supplements ([place] 22:00 Consistent DIET 04/01/24 Transmitted Carb(Ccho)Diabetes Lunch Insulin Lantus PHA 04/01/24 In Process (Glargine) (Lantus) 22:00 Date of Service: Apr 01, 2024 Billing Provider: OSWALDO GONZALES NP Common Visit Codes: [id number] INP/OBS CARE(HIGH) OSWALDO GONZALES NP Apr 01, 2024 14:36
[2024-04-02] VITALS (7 sets, daily range): BP systolic 137–163; BP diastolic 73–85; PULSE 60–82; RESP 17–18; TEMP 97.9–98.5; O2SAT 92–95
[2024-04-02 08:38] LABS: Basophils # (auto) 0 10 ^3/uL (0-0.2); Basophils % (auto) 0.2 % (0.0-2.0); Eosinophils # (auto) 0.1 10 ^3/uL (0-0.8); Hemoglobin 10.3 g/dL (13.5-17.5); Monocytes # (auto) 1.2 10 ^3/uL (0-1.3); Monocytes % (auto) 9.3 % (0.0-12.0); Red Blood Cells 3.61 10^6/uL (4.5-5.90)
[2024-04-02 08:40] LABS: Eosinophils % (auto) 0.6 % (0.0-7.0); Hematocrit 31.2 % (41.0-53.0); Lymphocytes # (auto) 0.8 10 ^3/uL (0.4-5.4); Lymphocytes % (auto) 6.6 % (10.0-50.0); Mean Corpuscular Hemoglobin 28.7 pg (28.0-32.0); Mean Corpuscular Hgb Conc. 33.2 g/dL (32.0-36.0); Mean Corpuscular Volume 86.5 fL (80.0-100.0); Neutrophils # (auto) 10.5 10 ^3/uL (1.6-8.6); Neutrophils % (auto) 83.3 % (37.0-80.0); Platelet Count (auto) 618 10^3/uL (140-450); Red Cell Distribution Width 15.2 % (11.8-14.3); White Blood Cell 12.7 10^3/uL (4.4-10.8)
[2024-04-02 09:18] LABS: Anion Gap 7 (5-15); Calcium 9.3 mg/dL (8.7-10.4); Carbon Dioxide 24 mmol/L (20-31); Chloride 103 mmol/L (98-107); Potassium 3.7 mmol/L (3.5-5.1)
[2024-04-02 09:24] LABS: BUN/Creatinine Ratio 25.3 (10.0-20.0); Blood Urea Nitrogen 23 mg/dL (9-23)
[2024-04-02 09:33] LABS: Glucose 115 mg/dL (74-106); Sodium 134 mmol/L (136-145)
[2024-04-02] MEDS ORDERED: LEVO500T91 PO (14:21)
[2024-04-02] MEDS ORDERED: SACC250C PO (14:21)
[2024-04-02] MEDS ORDERED: CLIN1CAP70 PO (14:21)
[2024-04-02] MEDS ORDERED: INSLANTI SC (14:21)
--- NOTE | 2024-04-02 15:44 | DVHDS2 ---
Discharge Summary Date of Admission Mar 26, 2024 at 19:18 Date of Discharge: Apr 02, 2024 Admitting Diagnosis Community-acquired pneumonia Labs/Diagnostic Data: Laboratory Results Test 04/02/24 11:25 04/02/24 07:35 03/30/24 13:00 03/30/24 05:00 POC Glucose 174 mg/dl (70-106) White Blood Count 12.7 10^3/uL (4.4-10.8) Red Blood Count 3.61 10^6/uL (4.5-5.90) Hemoglobin 10.3 g/dL (13.5-17.5) Hematocrit 31.2 % (41.0-53.0) Mean Corpuscular Volume 86.5 fL (80.0-100.0) Mean Corpuscular Hemoglobin 28.7 pg (28.0-32.0) Mean Corpuscular Hemoglobin Concent 33.2 g/dL (32.0-36.0) Red Cell Distribution Width 15.2 % (11.8-14.3) Platelet Count 618 10^3/uL (140-450) Mean Platelet Volume 6.9 fL (6.9-10.8) Neutrophils (%) (Auto) 83.3 % (37.0-80.0) Lymphocytes (%) (Auto) 6.6 % (10.0-50.0) Monocytes (%) (Auto) 9.3 % (0.0-12.0) Eosinophils (%) (Auto) 0.6 % (0.0-7.0) Basophils (%) (Auto) 0.2 % (0.0-2.0) Neutrophils # (Auto) 10.5 10 ^3/uL (1.6-8.6) Lymphocytes # (Auto) 0.8 10 ^3/uL (0.4-5.4) Monocytes # (Auto) 1.2 10 ^3/uL (0-1.3) Eosinophils # (Auto) 0.1 10 ^3/uL (0-0.8) Basophils # (Auto) 0 10 ^3/uL (0-0.2) Nucleated Red Blood Cells 0.0 % Sodium Level 134 mmol/L (136-145) Potassium Level 3.7 mmol/L (3.5-5.1) Chloride Level 103 mmol/L (98-107) Carbon Dioxide Level 24 mmol/L (20-31) Anion Gap 7 (5-15) Blood Urea Nitrogen 23 mg/dL (9-23) Creatinine 0.91 mg/dL (0.700-1.30) Glomerular Filtration Rate Calc 89 mL/min (>90) BUN/Creatinine Ratio 25.3 (10.0-20.0) Serum Glucose 115 mg/dL (74-106) Calcium Level 9.3 mg/dL (8.7-10.4) Urine Color Yellow (Yellow) Urine Clarity Turbid (Clear) Urine pH 5.5 (5.0-9.0) Urine Specific [place] 1.023 (1.001-1.035) Urine Protein 2+ (Negative) Urine Ketones Trace (Negative) Urine Blood 3+ /uL (Negative) Urine Nitrite Negative (Negative) Urine Bilirubin Negative (Negative) Urine Urobilinogen Normal mg/dL (Negative) Urine Leukocyte Esterase Trace /uL (Negative) Urine RBC 105 /hpf (0 - 3) Urine Microscopic WBC 10 /HPF (0-3) Urine Squamous Epithelial Cells Few /hpf (<5) Urine Bacteria None seen /hpf (None Seen) Urine Mucus Few (None Seen) Urine Glucose 1+ mg/dL (Normal) Erythrocyte Sedimentation Rate 100 mm/hr (0-20) C-Reactive Protein High Sensitivity > 20.00 mg/dL (<1.0) Test 03/28/24 10:00 03/28/24 06:56 03/27/24 06:52 03/26/24 15:20 SARS-CoV-2 Antigen (Rapid) Negative (NEGATIVE) Thyroid Stimulating Hormone (TSH) 2.26 uIU/mL (0.55-4.78) Hemoglobin A1c 8.7 % A1C (<5.7) Lactate Dehydrogenase 216 U/L (120-246) Influenza Type A Antigen Negative (Negative) Influenza Type B Antigen Negative (Negative) Test 03/26/24 14:15 03/26/24 13:20 Troponin I High Sensitivity 23 ng/L (</=54) Lactic Acid Level 1.3 mmol/L (0.4-2.0) Total Bilirubin 0.4 mg/dL (0.2-1.0) Aspartate Amino Transferase (AST) 9 U/L (13-40) Alanine Aminotransferase (ALT) 11 U/L (7-40) Alkaline Phosphatase 74 U/L (46-116) B-Type Natriuretic Peptide 279.94 pg/mL (0-100) Total Protein 7.1 g/dL (5.7-8.2) Albumin 4.3 g/dL (3.2-4.8) Other Laboratory Tests 04/02/24 07:35 Brief Hx & Hospital Course: History of Present Illness 73-year-old male presents for evaluation of shortness for breath. Patient presents with a two day history of worsening shortness for breath with associated generalized weakness and nausea. Patient does have a history of lung cancer. Denies chest pain or palpitations. No fever or chills. No other acute complaints reported. Course of hospitalization: Rehab the patient was chest x-ray reveals large right upper lobe opacity. CT scan was performed of the chest, which revealed lymphadenopathy, mediastinal as well as subcarinal. ESR was greater than 100, CRP greater than 20. Given the patient's history of lung cancer with oncologist stating that he was at the extent of his treatment, as well as stopping immunotherapy, patient was high probability of worsening/metastatic lung CA. Patient's blood sugars were also found to be significantly elevated, with difficulty controlling the patient's blood sugars despite aggressive insulin sliding scale every 4 hours, in addition to having a titrate patient was Lantus to 20 units twice a day. Antibiotic therapy was broadened with both Zosyn and clindamycin. White blood cell count has improved. Patient was given a trial of steroids with the patient stating that his breathing has improved. Long discussion was made with the patient's PCP, Dr. Verduzco guarding findings CT scan as well as the patient's Angelique. At this time the patient was stable to be discharged home and continue antibiotic therapy in addition to continuing Lantus 20 units twice a day. He will follow up with his PCP in one week, and will further discuss his treatment options for his probable metastatic cancer. Patient states that he does have a PET scan ordered for next month. Patient's is agreeable with discharge plan. All questions answered. Physical examination General: Alert and Oriented x3. No acute distress. Well-nourished. Eyes: EOMI. Anicteric. HENT: Moist mucous membranes. Lungs: Clear to auscultation bilaterally. No accessory muscle use. Cardiovascular: Regular rate and rhythm. No murmur. No JVD. Abdomen: Soft, non-tender and non-distended. No palpable masses. Extremities: No edema. Non-tender. Skin: No rashes or lesions. Warm. Neurologic: No focal neurological deficits. CN II-XII grossly intact, but not individually tested. Psychiatric: Cooperative. Appropriate mood and affect. Total time spent with patient discussing and formulating plan of care: 35 minutes. This medical document was created using an electronic medical record system with [employer] dictation system. Although this document has been carefully reviewed, there may still be some phonetic and typographical errors. These areas are purely typographical due to imperfections of the software programs, and do not reflect any compromise in the patient's medical care. Condition at Discharge: Poor Final Diagnosis/Problems List Community-acquired pneumonia follow Gram-positive/Gram-negative etiology Secondary Diagnosis: -sepsis , due to pneumonia -lung cancer -rule out metastatic disease -diabetes mellitus -diabetic neuropathy -sacral wound -right heel wound Discharge Disposition: Home Discharge Instruct/Medications Diet: Consistent carbohydrate, Cardiac 2g Na,low cholest Activity: No Restrictions, As Tolerated Follow Up/Referral: Dr. Verduzco within 1 week Medications: Clindamycin 300 mg p.o. Q 8 hours times seven days Levaquin 5 mg p.o. daily x7 days Increase Lantus to 20 units subcutaneous injection twice a day Continue all home medications per medication reconciliation 36 Discharge Statement: "Patient was advised to return to the ER or call 911 if any headaches, dizziness, shortness of breath, chest pain, abdominal pain, bleeding, fevers, or worsening of medical condition. Patient was counseled about treatment plan, medications, possible side effects, patientverbalized understanding. All questions were answered to the best of my ability. This discharge took greater then 30 minutes in planning, reviewing documentation, counseling the patient, and discussing with other team members." ASSESSMENT ASSESSMENT Assessment Community-acquired pneumonia follow Gram-positive/Gram-negative etiology Date of Service: Apr 02, 2024 Billing Provider: OSWALDO GONZALES NP Common Visit Codes: [id number] DISCH DAY >30min OSWALDO GONZALES NP Apr 02, 2024 15:44
--- NOTE | 2024-04-02 16:17 | DVH ---
CHEST RADIOGRAPH Indication: pna Technique: Single frontal view of the chest was obtained COMPARISON: 03/28/24 FINDINGS: Lines and Tubes: None Lungs: Right upper lobe airspace consolidation, unchanged from the prior study Stable heart size Pleura: No effusion. No pneumothorax. Cardiomediastinal contours: Unremarkable Bones: Unremarkable IMPRESSION: 1. No interval change from 03 28 2024.
== END 2024-04-02 20:36 | disposition home or self-care (01) | DRG 871 ==
LOC: EDUNIT# 12:10 → EDBD 12:10 → ER 12:10 → OVERFLOW 19:18 → WEST WING 20:40
PROVIDERS: ADMIT Nurse Practitioner; ATTEND Nurse Practitioner Acute Care
DX: A41.50 Gram-negative sepsis, unspecified (principal); J15.69 Pneumonia due to other Gram-negative bacteria; J96.91 Respiratory failure, unspecified with hypoxia; J15.9 Unspecified bacterial pneumonia; E11.40 Type 2 diabetes mellitus with diabetic neuropathy, unspecified; I10 Essential (primary) hypertension; Z20.822 Contact with and (suspected) exposure to COVID-19; S31.000A Unspecified open wound of lower back and pelvis without penetration into retroperitoneum, initial encounter; S91.301A Unspecified open wound, right foot, initial encounter; X58.XXXA Exposure to other specified factors, initial encounter; R59.0 Localized enlarged lymph nodes; I25.10 Atherosclerotic heart disease of native coronary artery without angina pectoris; Z85.118 Personal history of other malignant neoplasm of bronchus and lung; Z95.1 Presence of aortocoronary bypass graft; Y93.89 Activity, other specified; Y92.89 Other specified places as the place of occurrence of the external cause; Y99.8 Other external cause status; Z79.4 Long term (current) use of insulin
CPT/HCPCS: 36415; 70553; 71045; 71250; 74176; 80048; 80053; 81001; 82962; 83036; 83605; 83615; 83880; 84443; 84484; 85025; 85652; 86141; 87040; 87086; 87426; 87804; 93005; 96365; 97110; 97116; 97163; 97530; 99291; G0378; J1815; J2003; J2543; J3490